=== PATIENT | male | born 1965 | race Caucasian/White ===

== ENCOUNTER 2018-10-27 14:17 | Inpatient (IN) | payer BC ==
[2018-10-27] MEDS ORDERED: ISOVUE-370 76%-LOCM 1 ML ONE (15:09)
[2018-10-27 15:37] LABS: Troponin I 0.025 ng/mL (< 0.028)
--- NOTE | 2018-10-27 16:38 | CT ---
Exam: CT angiogram of the chest HISTORY: Dyspnea COMPARISON: None TECHNIQUE: CT angiogram of the chest is performed in the axial plane. Three-dimensional reformatted i mages are submitted for interpretation FINDINGS: Mediastinum: There do appear to be enlarged mediastinal lymph nodes. For example there is an enlarged right. Tracheal lymph node measuring 1.8 x 1.5 cm. Enlarged left mediastinal lymph node measuring 1.0 x 2.0 cm. HEART: Normal heart size. No significant pericardial fluid. There are coronary artery calcifications. Aorta: Limited evaluation due to technique. No evidence of aneurysm. Upper solid abdominal viscera: No abnormality enhancement. Trachea and central bronchi: Patent Pleural spaces: Trace right and small left-sided pleural effusion. Lung parenchyma: Patchy groundglass opacities throughout the lung parenchyma. No dense consolidation with air bronchograms. Atelectatic changes in both lower lobes. No suspicious masses. 0.5 cm subpleural lymph node adjacent to the minor fissure. Pneumothorax: None Osseous structures: No lytic or blastic lesions Pulmonary arteries:Limited evaluation of the pulmonary arteries due to timing of bolus. There is adeq uate contrast opacification of pulmonary arterial system to the level of proximal lobar arteries. No filling defect to suggest thromboembolism. Evaluation of the remainder the lobar arteries, segment al and subsegmental arteries is limited. IMPRESSION: 1. Patchy groundglass opacities and bilateral pleural effusion. Correlate for volume overload 2. Limited evaluation of pulmonary arterial system. No evidence of a pulmonary artery embolism to th e level of the proximal main lobar arteries Transcribed Date/Time: 10/27/2018 4:48 PM
[2018-10-27 17:49] VITALS: BMI 40.7
--- NOTE | 2018-10-27 18:03 | HP ---
PRIMARY CARE PHYSICIAN: None. CHIEF COMPLAINT: Generalized weakness with upper abdominal pain. HISTORY OF PRESENT ILLNESS: The patient is a 53-year-old male, who presented to [facility] with above complaints. Over the past 1 or 2 weeks, the patient has not been feeling well. He felt generally weak and fatigued. He gets short of breath on mild exertion. He also had intermittent palpitations without any chest pain or syncope. He denies recent immobilization travel. In the emergency room, his workup was consistent with atrial fibrillation with rapid ventricular response with a heart rate of 188. He was started on oxygen due to hypoxia. He also received one dose of Lovenox along with aspirin in the emergency room. PAST MEDICAL HISTORY: Reviewed with the patient and none. PAST SURGICAL HISTORY: Reviewed with the patient and none. ALLERGIES: THE PATIENT IS ALLERGIC TO LOSARTAN THAT CAUSES SHORTNESS OF BREATH. CURRENT HOME MEDICATIONS: Reviewed with the patient and none. SOCIAL HISTORY: The patient currently abuses cannabis. He denies any alcohol or smoking. He is full code. FAMILY HISTORY: Negative for heart disease. REVIEW OF SYSTEMS: All other review of systems was reviewed and were found negative. PHYSICAL EXAMINATION: VITAL SIGNS: Temperature 97.5, respirations of 37, pulse rate of 119, blood pressure of 148/102, and O2 saturation 92% on 3 L nasal cannula. GENERAL: A 53-year-old male in mild respiratory distress. Able to complete short phrases. HEENT: Head; atraumatic, normocephalic. Sclerae are anicteric. Moist mucous membranes. No oral lesion. NECK: Supple. No JVD appreciated. No carotid bruit. LUNGS: Showed diminished air entry at bilateral bases with rales at bases. No rhonchi or wheezing. HEART: S1 and S2 present. Regular rate and rhythm. No heaves or pulsation. ABDOMEN: Soft, nontender, obese. Bowel sounds present. EXTREMITIES: 2+ edema in bilateral lower extremity. SKIN: Warm and dry. PERIPHERAL VASCULAR: Radial pulses palpable bilaterally. MUSCULOSKELETAL: No joint swelling or tenderness. SKIN: Warm and dry. LYMPH NODES: No palpable lymph nodes in the neck. LABORATORY FINDINGS: WBC 14.3 with hemoglobin 14.3, hematocrit 48.9, and platelet count of 292. INR 1.2 with PT 15.9. BNP 229. Troponin negative. TSH 1.1. Lactic acid 0.9. Sodium 141, potassium 5.1, BUN 18, and creatinine 0.87. Urine drug screen was positive for cannabinoid and methamphetamines. IMAGING DATA: CT angiogram of the chest by my review showed pulmonary vascular congestion with bilateral pleural effusion. EKG by my review showed atrial fibrillation with rapid ventricular response. Repeat EKG showed normal sinus rhythm. IMPRESSION: 1. Atrial fibrillation with rapid ventricular response, converted to sinus rhythm. 2. Acute hypoxic respiratory failure secondary to congestive heart failure exacerbation. Ejection fraction unknown. 3. Cannabis abuse. 4. Urine drug screen positive for methamphetamine. 5. Leukocytosis unlikely to be infectious. 6. Morbid Obesity. PLAN: The patient will be monitored in the telemetry unit. Cardizem drip will be continued at 5 mg/hour. We will continue 1 mg/kg of Lovenox. Cardiology consultation. IV diuretics. Consult Cardiology. Add fluid restriction. The patient will require 2 days for stabilization. Plan of care was discussed with the patient in detail, he stated understanding. Job ID: [id number] MTDD
[2018-10-27 19:21] LABS: Troponin I 0.026 ng/mL (< 0.028)
[2018-10-28] MEDS ORDERED: Acetaminophen 325 MG TAB PO PRN (06:50)
[2018-10-28] MEDS ORDERED: Ondansetron ODT 4 MG TAB PO PRN (06:50)
[2018-10-28] MEDS ORDERED: Calcium Carbonate 500 MG ChewTAB PO PRN (06:50)
[2018-10-28] MEDS ORDERED: Ondansetron PF 4 MG/2 ML Vial IVP PRN (06:50)
[2018-10-28] MEDS ORDERED: cloNIDine 0.1 MG TAB PO PRN (06:59)
[2018-10-28 07:44] LABS: #Eosinphils 0.3 thou/uL (0.0-0.7); #Lymphocytes 1.5 thou/uL (1.20-3.40); #Monocytes 1.2 thou/uL (0.11-0.59); #Neutrophils 10.8 thou/uL (1.40-6.50); %Basophils 0.3 % (0.0-1.0); %Eosinophils 1.8 % (0.0-10.0); %Monocytes 8.4 % (0.0-10.0); %Neutrophils 78.5 % (42.0-75.0); Hemoglobin 13.9 g/dL (14.0-18.0); Mean Corpuscular HGB CONC 30.9 g/dL (32.0-36.0); Mean Corpuscular Hemoglobin 30.5 pg (27.0-31.0); Mean Corpuscular Volume 98.5 fL (78.0-98.0); Mean Platelet Volume 6.9 fL (7.4-10.4); Platelet Count 251 thou/uL (130-400); RBC Distribution Width 14.3 % (11.5-14.5); Red Blood Cell (RBC) Count 4.57 mill/uL (4.70-6.10); White Blood Cell (WBC) Count 13.8 thou/uL (4.8-10.8)
[2018-10-28 08:08] LABS: Anion Gap 10 mmol/L (10-20); BUN (Urea Nitrogen) 20 mg/dL (8.4-25.7); Calc. Creatinine Clearance 176 mL/min (70-130); Calcium 9.3 mg/dL (7.8-10.44); Carbon Dioxide 35 mmol/L (22-29); Chloride 99 mmol/L (98-107); Estimated GFR-MDRD 83; Glucose 110 mg/dL (70-105); Magnesium 1.8 mg/dL (1.6-2.6); Sodium 138 mmol/L (136-145)
[2018-10-28] MEDS ORDERED: Furosemide 40 MG/4 ML VIAL SLOW IVP SCH (08:15)
[2018-10-28] MEDS: Enoxaparin Sodium 100 MG/ML SYRINGE SC SCH ×2 (09:10→20:38)
[2018-10-28] MEDS: Famotidine 20 MG TAB PO SCH ×2 (09:11→20:38)
[2018-10-28] MEDS: Senokot S 8.6-50 MG TAB PO SCH ×2 (09:11→20:38)
[2018-10-28 09:57] LABS: Hemoglobin 14.6 g/dL (14.0-18.0); Platelet Count 263 thou/uL (130-400)
[2018-10-28] MEDS ORDERED: Nitroglycerin 0.4 MG TAB (25 Tab Bottle) PO PRN (10:05)
[2018-10-28 10:14] LABS: Calc. Creatinine Clearance 204 mL/min (70-130); Estimated GFR-MDRD Greater than 90
--- NOTE | 2018-10-28 12:26 | PRG ---
DATE OF SERVICE: 10/28/2018 SUMMARY: A 53-year-old male admitted yesterday with atrial fibrillation with rapid ventricular response. SUBJECTIVE: The patient denies any new complaints at this time. He gets short of breath on [id number] exertion. He denies any fever or chills. He has some dry cough. Mild orthopnea reported. Continues to have leg swelling. CURRENT MEDICATIONS: Reviewed. He is currently on IV Lasix along with oral Cardizem and anticoagulation. OBJECTIVE: VITAL SIGNS: Temperature 98.1, pulse rate of 81, respirations of 15, blood pressure 157/89, O2 saturation 93% on 2 L nasal cannula. GENERAL: A 53-year-old man, in no apparent distress while at rest. HEENT: Head; atraumatic and normocephalic. Sclerae anicteric. Moist mucous membranes. No oral lesion. NECK: Supple. No JVD. No carotid bruit. LUNGS: Show diminished air entry at bilateral bases. No wheezing, rales, or rhonchi. No accessory muscle use. HEART: S1 and S2 present. Regular rate and rhythm. No significant murmurs appreciated. ABDOMEN: Soft. Bowel sounds present. Obese. No rebound or guarding. EXTREMITIES: 2 to 3+ edema. No calf tenderness. NEUROLOGIC: Grossly nonfocal. LABORATORY FINDINGS: Platelet count 263 with hemoglobin 14.6. Potassium 6.0, BUN 20, creatinine 0.95. Telemetry monitoring by my review showed sinus rhythm. CT angiogram of the chest by my review showed bilateral pleural effusion with patchy ground-glass opacity secondary to volume overload. IMPRESSION: 1. Atrial fibrillation with rapid ventricular response. The patient converted to sinus rhythm. He is currently on oral Cardizem as well as anticoagulation. 2. Acute hypoxic respiratory failure secondary to congestive heart failure exacerbation. 3. Cannabis abuse. 4. Morbid obesity with a BMI of 40.9. 5. Hyperkalemia of unclear etiology. 6. Chronic kidney disease, stage 2. 7. Urine drug screen positive for methamphetamine. PLAN: We will continue IV diuretics along with oral Cardizem. Await Cardiology input. Echocardiogram will be obtained. We will give him Kayexalate along with lactulose for hyperkalemia. We will recheck potassium later today. Continue fluid restriction at 1500 a day, daily weights, congestive heart failure management. The patient will require 2 to 3 more days for stabilization given his persistent hypoxemia. Job ID: [id number]
--- NOTE | 2018-10-28 13:15 | PDOC.EVN ---
Event Note - Event Note Event Note: RN called - Patient back in Afib with RVR. Will start Cardizem drip @ 5 mg/hr.
[2018-10-28] MEDS: Furosemide 40 MG/4 ML VIAL SLOW IVP SCH (14:33)
[2018-10-28] MEDS: Diltiazem 125 MG in Sodium Chloride 0.9% 100 ML IVPB SCH (14:33)
[2018-10-28 14:45] LABS: Potassium 3.9 mmol/L (3.5-5.1)
--- NOTE | 2018-10-28 18:37 | CON ---
DATE OF CONSULTATION: 10/28/2018 REASON FOR CONSULTATION: Atrial fibrillation with RVR. HISTORY OF PRESENT ILLNESS: Mr. Gu is a pleasant 53-year-old white gentleman, who comes to the hospital for generalized weakness and upper abdominal pain. He was evaluated in the ER and found to be in atrial fibrillation and RVR. He was started on the diltiazem drip and Cardiology is being consulted for this. On my evaluation, Mr. Gu is back in normal rhythm. He is having paroxysms of atrial fibrillation, they are self-limited for about 30 minutes at a time. During his paroxysms, he goes as high as 160s. PAST MEDICAL HISTORY: None. SURGICAL HISTORY: None. OUTPATIENT MEDICATIONS: None. ALLERGIES: HE SAYS LOSARTAN CAUSES SHORTNESS OF BREATH, WHICH HE TELLS ME THAT HE HAS BEEN ON BLOOD PRESSURE MEDICATIONS IN THE PAST. HE MAY HAVE A DIAGNOSIS OF HIGH BLOOD PRESSURE. SOCIAL HISTORY: Uses marijuana daily. Uses tobacco daily. He tells me that the last time he used methamphetamines was about 2 years ago. However, his urine drug screen was positive for methamphetamines. No alcohol. FAMILY HISTORY: No early coronary artery disease. REVIEW OF SYSTEMS: A 12-point review of systems was done and was all negative unless stated in history of present illness. PHYSICAL EXAMINATION: VITAL SIGNS: Temperature 98.2, pulse 84, respiratory rate 15, saturations 92% on 3.5 L, and blood pressure 133/73. GENERAL: Awake, alert, and oriented x3, in no distress. HEENT: Normocephalic and atraumatic. NECK: Supple. LUNGS: Clear. CARDIOVASCULAR: S1 and S2. No S3 or S4. No murmurs. ABDOMEN: Soft. Positive bowel sounds. EXTREMITIES: Trace edema. SKIN: Warm and dry. LABORATORY DATA: Laboratory work was reviewed. CBC with a white count of 13, hemoglobin of 13.9, hematocrit 45, platelet count of 251. Chemistries showed a potassium of 6.0 on admission, down to 3.9 after Kayexalate was given. GFR was greater than 90. Glucose of 110. Troponin was negative x2. BNP is 229. CT of the chest showed ground-glass opacities bilaterally with bilateral pleural effusions consistent with volume overload. No pulmonary embolisms. ASSESSMENT: 1. Atrial fibrillation with RVR. 2. Urine drug screen positive for methamphetamines and cannabis. 3. Possible systolic versus diastolic heart failure. PLAN: 1. Await for echocardiogram. 2. We will recommend that he abstain from any stimulants as this is most likely the cause of his atrial fibrillation. 3. If he shows in the future that he is abstinent and he continues to have paroxysms of atrial fibrillation, then he will be a candidate for an antiarrhythmic. However, at this point, with his methamphetamine use, this would be prohibitive. 4. I would recommend against a full anticoagulation, given his methamphetamine use at the time. His CHADS-VASc score would only be 1 for hypertension, so he would only be a candidate for low-dose aspirin for stroke prophylaxis. Thank you for letting me to participate in the care of your patient. Further recommendations per results of echocardiogram. Job ID: [id number]
[2018-10-29 05:03] LABS: BUN (Urea Nitrogen) 31 mg/dL (8.4-25.7); Calc. Creatinine Clearance 233 mL/min (70-130); Calcium 8.6 mg/dL (7.8-10.44); Estimated GFR-MDRD Greater than 90; Glucose 119 mg/dL (70-105); Magnesium 1.7 mg/dL (1.6-2.6)
[2018-10-29 05:13] LABS: Anion Gap 14 mmol/L (10-20); Carbon Dioxide 38 mmol/L (22-29); Chloride 93 mmol/L (98-107); Potassium 4.2 mmol/L (3.5-5.1); Sodium 141 mmol/L (136-145)
[2018-10-29] MEDS: Furosemide 40 MG/4 ML VIAL SLOW IVP SCH (05:29)
[2018-10-29] MEDS: Enoxaparin Sodium 100 MG/ML SYRINGE SC SCH ×2 (05:29→18:10)
[2018-10-29] MEDS ORDERED: Magnesium 2 GM/50 ML 2 GM in Premix Bag 1 BAG IVPB SCH (07:15)
[2018-10-29] MEDS ORDERED: Magnesium Sulfate 2 GM in Sodium Chloride 0.9% 100 ML IVPB SCH (07:15)
[2018-10-29] MEDS: Famotidine 20 MG TAB PO SCH ×2 (08:59→20:14)
[2018-10-29] MEDS: Senokot S 8.6-50 MG TAB PO SCH ×2 (08:59→20:14)
[2018-10-29] MEDS ORDERED: Aspirin 81 mg Enteric Coated Tablet PO SCH (09:00)
[2018-10-29] MEDS: Diltiazem 125 MG in Sodium Chloride 0.9% 100 ML IVPB SCH (10:24)
[2018-10-29] MEDS ORDERED: Diltiazem 125 MG in Sodium Chloride 0.9% 100 ML IVPB SCH (18:45)
--- NOTE | 2018-10-29 18:47 | PDOC.CTH ---
Cardiology Progress Note - Subjective No new issues. - Objective Vital Signs Temp Pulse Resp BP Pulse Ox 10/29/18 16:27 98.1 F 118 H 14 143/64 H 93 L 10/29/18 12:03 97.9 F 113 H 15 152/74 H 93 L 10/29/18 08:00 94 L 10/29/18 07:21 97.6 F 113 H 15 136/74 94 L Weight 293 lb 12.8 oz 10/28/18 10/29/18 10/30/18 06:59 06:59 06:59 Intake Total 720 1520 Output Total 450 6375 Balance 270 -6505 - Physical Examination General/Neuro: alert & oriented x3, NAD Neck: no JVD present Lungs: CTA, unlabored respirations Heart: other: (irreg irreg) Abdomen: soft Extremities: + edema B (trace) - Telemetry Telemetry Rhythm: NSR --> Afib - Labs Result Diagrams: 10/28/18 09:49 10/29/18 04:00 Troponin/CKMB Troponin I 0.026 ng/mL (< 0.028) 10/27/18 18:44 - Assessment/Plan 1. Paroxysmal afib 2. Substance abuse. 3. HTN PLAN: - Will increase diltiazem for better rate control. - Will add flecainide for now but will only provide one month of prescription and will only be refilled if he is compliant and shows up to follow up appointments. - Aspirin alone for stroke prophylaxis as CHADS VASc score of 1.
--- NOTE | 2018-10-29 19:19 | PDOC.PN ---
- Subjective Encounter Start Date: 10/29/18 Encounter Start Time: 19:19 Patient seen and examined for Afib with RVR/Resp failure. SOB improving. On Cardizem drip. No CP. No new complaints. No overnight events - Objective Resuscitation Status - Order Detail: 10/28/18 06:50 Resuscitation Status Routine Resuscitation Status: FULL: Full Resuscitation MAR Reviewed: Yes Vital Signs & Weight: Vital Signs (12 hours) Temp Pulse Resp BP Pulse Ox 10/29/18 16:27 98.1 F 118 H 14 143/64 H 93 L 10/29/18 12:03 97.9 F 113 H 15 152/74 H 93 L 10/29/18 08:00 94 L 10/29/18 07:21 97.6 F 113 H 15 136/74 94 L Weight Weight 293 lb 12.8 oz I&O: 10/28/18 10/29/18 10/30/18 06:59 06:59 06:59 Intake Total 720 1520 Output Total 450 6375 Balance 270 -8505 Result Diagrams: 10/28/18 09:49 10/30/18 04:25 EKG Reviewed by me: Yes (Tele Afib) Phys Exam - Physical Examination Constitutional: NAD Neck: no JVD Respiratory: no wheezing, no rhonchi few rales at bases, No accessory muscle use Cardiovascular: RRR, no rub, irregular no heaves/pulsations Gastrointestinal: soft, non-tender, no distention, positive bowel sounds Musculoskeletal: pulses present, edema present Neurological: non-focal, normal sensation, moves all 4 limbs Psychiatric: normal affect, A&O x 3 Skin: no rash Dx/Plan - Plan DVT proph w/lovenox, DVT proph w/SCDs IMPRESSION: 1. Atrial fibrillation with rapid ventricular response - on Cardizem drip 2. Acute hypoxic respiratory failure secondary to acute diastolic HF 3. Cannabis abuse. 4. Methamphetamine abuse 5. Obesity BMI 37.6 6. HTN PLAN: Cont Cardizem drip DC 1 mg/kg Lovenox per Cardiology Cont ASA for stroke prophylaxis On Flecainide Counselled on lifestyle modification AM labs Review of Systems - Review of Systems Respiratory: negative: Cough, Dry, Shortness of Breath, Hemoptysis, SOB with Excertion, Pleuritic Pain, Sputum, Wheezing Cardiovascular: negative: chest pain, palpitations, orthopnea, paroxysmal nocturnal dyspnea, edema, light headedness, other Gastrointestinal: negative: Nausea, Vomiting, Abdominal Pain, Diarrhea, Constipation, Melena, Hematochezia, Other - Medications/Allergies Allergies/Adverse Reactions: Allergies Allergy/AdvReac Type Severity Reaction Status Date / Time No Known Allergies Allergy Unverified 10/27/18 17:25 Medications: Current Medications Acetaminophen (Tylenol) 650 mg PO Q4H PRN PRN Reason: Headache/Fever/Mild Pain (1-3) Aspirin (Ecotrin) 81 mg PO DAILY [facility] Last Admin: 10/29/18 08:59 Dose: 81 mg Calcium Carbonate (Tums) 1,000 mg PO Q4H PRN PRN Reason: Heartburn or Indigestion Clonidine (Catapres) 0.1 mg PO Q4H PRN PRN Reason: SBP Greater Than 180 Enoxaparin Sodium (Lovenox) 100 mg SC 0700,1900 [facility] Last Admin: 10/29/18 18:10 Dose: 100 mg Famotidine (Pepcid) 20 mg PO BID [facility] Last Admin: 10/29/18 08:59 Dose: 20 mg Flecainide Acetate (Tambocor) 50 mg PO Q12HR [facility] Furosemide (Lasix) 40 mg SLOW IVP DAILY [facility] Diltiazem HCl 125 mg/ Sodium (Chloride) 125 mls @ 10 mls/hr IVPB INF [facility]; Protocol Nitroglycerin (Nitrostat) 0.4 mg PO Q5MIN PRN PRN Reason: Chest Pain Ondansetron HCl (Zofran Odt) 4 mg PO Q6H PRN PRN Reason: Nausea/Vomiting Ondansetron HCl (Zofran) 4 mg IVP Q6H PRN PRN Reason: Nausea/Vomiting Senna/Docusate Sodium (Senokot S) 1 tab PO BID [facility] Last Admin: 10/29/18 08:59 Dose: Not Given Sodium Chloride (Flush - Normal Saline) 10 ml IVF PRN PRN PRN Reason: Saline Flush
[2018-10-29] MEDS: Flecainide 50 MG TAB PO SCH (20:14)
[2018-10-30 05:34] LABS: BUN (Urea Nitrogen) 35 mg/dL (8.4-25.7); Calc. Creatinine Clearance 211 mL/min (70-130); Calcium 8.7 mg/dL (7.8-10.44); Estimated GFR-MDRD Greater than 90; Glucose 120 mg/dL (70-105); Magnesium 1.7 mg/dL (1.6-2.6)
[2018-10-30 05:43] LABS: Anion Gap 13 mmol/L (10-20); Carbon Dioxide 39 mmol/L (22-29); Chloride 95 mmol/L (98-107); Potassium 4.2 mmol/L (3.5-5.1); Sodium 143 mmol/L (136-145)
[2018-10-30] MEDS ORDERED: Magnesium Sulfate 2 GM in Sodium Chloride 0.9% 100 ML IVPB SCH (07:00)
[2018-10-30] MEDS: Enoxaparin Sodium 100 MG/ML SYRINGE SC SCH (07:05)
[2018-10-30] MEDS ORDERED: Magnesium 2 GM/50 ML 2 GM in Premix Bag 1 BAG IVPB SCH (07:30)
[2018-10-30 08:34] LABS: #Basophils 0.1 thou/uL (0.0-0.2); #Eosinphils 0.3 thou/uL (0.0-0.7); #Lymphocytes 1.6 thou/uL (1.20-3.40); #Neutrophils 9.1 thou/uL (1.40-6.50); %Basophils 0.5 % (0.0-1.0); %Eosinophils 2.9 % (0.0-10.0); %Lymphocytes 13.5 % (21.0-51.0); %Neutrophils 75.1 % (42.0-75.0); Hemoglobin 10.9 g/dL (14.0-18.0); Hypochromia SLIGHT = 6-15 cells (100X) (0-5/hpf); MDiff Complete? YES; Macrocytosis SLIGHT = 6-15 cells (100X) (0-5/hpf); Mean Corpuscular HGB CONC 29.9 g/dL (32.0-36.0); Mean Corpuscular Hemoglobin 29.7 pg (27.0-31.0); Mean Corpuscular Volume 99.1 fL (78.0-98.0); Mean Platelet Volume 6.8 fL (7.4-10.4); Platelet Count 243 thou/uL (130-400); Platelet Morphology Comment Appears Adequate; Polychromasia SLIGHT = 2-3 cells (100X) (0-2/hpf); RBC Distribution Width 14.2 % (11.5-14.5); Red Blood Cell (RBC) Count 3.66 mill/uL (4.70-6.10); White Blood Cell (WBC) Count 12.1 thou/uL (4.8-10.8)
[2018-10-30] MEDS ORDERED: Furosemide 40 MG/4 ML VIAL SLOW IVP SCH ×2 (09:00→17:30)
[2018-10-30] MEDS: Aspirin 325 mg Enteric Coated Tablet PO SCH (10:22)
[2018-10-30] MEDS: Famotidine 20 MG TAB PO SCH ×2 (10:22→21:02)
[2018-10-30] MEDS: Flecainide 50 MG TAB PO SCH ×2 (10:22→21:02)
[2018-10-30] MEDS: Senokot S 8.6-50 MG TAB PO SCH ×2 (10:22→21:03)
--- NOTE | 2018-10-30 16:50 | PDOC.PN ---
- Subjective Encounter Start Date: 10/30/18 Encounter Start Time: 14:30 Patient seen and examined for Afib with RVR/CHF. No new complaints. No overnight events - Objective Resuscitation Status - Order Detail: 10/28/18 06:50 Resuscitation Status Routine Resuscitation Status: FULL: Full Resuscitation MAR Reviewed: Yes Vital Signs & Weight: Vital Signs (12 hours) Temp Pulse Resp BP Pulse Ox 10/30/18 15:34 97.7 F 91 18 157/86 H 93 L 10/30/18 12:49 98.3 F 88 16 137/68 94 L 10/30/18 07:49 98.0 F 71 22 H 137/65 96 Weight Weight 277 lb 8 oz I&O: 10/29/18 10/30/18 10/31/18 06:59 06:59 06:59 Intake Total 1520 1200 Output Total 6375 1750 Balance -6139 -550 Result Diagrams: 10/30/18 06:29 10/30/18 04:25 EKG Reviewed by me: Yes (Tele SR) Phys Exam - Physical Examination Constitutional: NAD Respiratory: no wheezing, no rhonchi dec AE at bases, No accessory muscle use Cardiovascular: RRR, no rub no heaves/pulsations Gastrointestinal: soft, non-tender, no distention, positive bowel sounds Musculoskeletal: pulses present, edema present Neurological: non-focal, normal sensation, moves all 4 limbs Psychiatric: normal affect, A&O x 3 Dx/Plan - Plan DVT proph w/lovenox, DVT proph w/SCDs IMPRESSION: 1. Atrial fibrillation with rapid ventricular response - on Cardizem drip, on ASA 2. Acute hypoxic respiratory failure secondary to acute diastolic HF - on 4 lit NC today 3. Cannabis abuse. 4. UDS positive for Methamphetamine abuse 5. Obesity BMI 37.6 6. HTN 7. ?PEARL PLAN: Cont Cardizem drip On Flecainide Add PO Cardizem Cont IV Lasix AM labs Wean O2 Cont fluid restriction Counselled on lifestyle modification AM labs Sleep study as outpt Review of Systems - Review of Systems Respiratory: SOB with Excertion. negative: Cough, Dry, Shortness of Breath, Hemoptysis, Pleuritic Pain, Sputum, Wheezing Cardiovascular: edema. negative: chest pain, palpitations, orthopnea, paroxysmal nocturnal dyspnea, light headedness, other Gastrointestinal: negative: Nausea, Vomiting, Abdominal Pain, Diarrhea, Constipation, Melena, Hematochezia, Other - Medications/Allergies Allergies/Adverse Reactions: Allergies Allergy/AdvReac Type Severity Reaction Status Date / Time No Known Allergies Allergy Unverified 10/27/18 17:25 Medications: Current Medications Acetaminophen (Tylenol) 650 mg PO Q4H PRN PRN Reason: Headache/Fever/Mild Pain (1-3) Aspirin (Ecotrin) 325 mg PO DAILY [facility] Last Admin: 10/30/18 10:22 Dose: 325 mg Calcium Carbonate (Tums) 1,000 mg PO Q4H PRN PRN Reason: Heartburn or Indigestion Clonidine (Catapres) 0.1 mg PO Q4H PRN PRN Reason: SBP Greater Than 180 Diltiazem HCl (Cardizem) 60 mg PO BID [facility] Enoxaparin Sodium (Lovenox) 40 mg SC 2100 [facility] Famotidine (Pepcid) 20 mg PO BID [facility] Last Admin: 10/30/18 10:22 Dose: 20 mg Flecainide Acetate (Tambocor) 50 mg PO Q12HR [facility] Last Admin: 10/30/18 10:22 Dose: 50 mg Furosemide (Lasix) 40 mg SLOW IVP DAILY [facility] Last Admin: 10/30/18 10:23 Dose: 40 mg Nitroglycerin (Nitrostat) 0.4 mg PO Q5MIN PRN PRN Reason: Chest Pain Ondansetron HCl (Zofran Odt) 4 mg PO Q6H PRN PRN Reason: Nausea/Vomiting Ondansetron HCl (Zofran) 4 mg IVP Q6H PRN PRN Reason: Nausea/Vomiting Senna/Docusate Sodium (Senokot S) 1 tab PO BID [facility] Last Admin: 10/30/18 10:22 Dose: 1 tab Sodium Chloride (Flush - Normal Saline) 10 ml IVF PRN PRN PRN Reason: Saline Flush
--- NOTE | 2018-10-30 17:04 | PDOC.CTH ---
Cardiology Progress Note - Subjective Still needing Oxygen supplementation. - Objective Vital Signs Temp Pulse Resp BP Pulse Ox 10/30/18 15:34 97.7 F 91 18 157/86 H 93 L 10/30/18 12:49 98.3 F 88 16 137/68 94 L 10/30/18 07:49 98.0 F 71 22 H 137/65 96 Weight 277 lb 8 oz 10/29/18 10/30/18 10/31/18 06:59 06:59 06:59 Intake Total 1520 1200 Output Total 6375 1750 Balance -4855 -550 - Physical Examination General/Neuro: alert & oriented x3, NAD Neck: no JVD present Lungs: CTA, unlabored respirations Heart: RRR Abdomen: NT/ND Extremities: + edema B (1+) - Telemetry Telemetry Rhythm: NSR. - Labs Result Diagrams: 10/30/18 06:29 10/30/18 04:25 Troponin/CKMB Troponin I 0.026 ng/mL (< 0.028) 10/27/18 18:44 - Assessment/Plan 1. Paroxysmal afib 2. Substance abuse. 3. HTN 4. Acute diastolic CHF. PLAN: - PO diltiazem. - Continue current flecainide dose. - Aspirin alone for stroke prophylaxis as CHADS VASc score of 1. - Will do MUGA scan to evaluate LV function more accurately. - IV lasix.
[2018-10-30] MEDS: Diltiazem HCl SR 60 mg Capsule PO SCH (21:02)
[2018-10-30] MEDS: Enoxaparin Sodium 40 MG/0.4 ML SYRINGE SC SCH (21:03)
[2018-10-31] MEDS: Furosemide 40 MG/4 ML VIAL SLOW IVP SCH (06:07)
[2018-10-31 06:50] LABS: BUN (Urea Nitrogen) 34 mg/dL (8.4-25.7); Calc. Creatinine Clearance 213 mL/min (70-130); Calcium 8.4 mg/dL (7.8-10.44); Estimated GFR-MDRD Greater than 90; Glucose 113 mg/dL (70-105); Magnesium 1.8 mg/dL (1.6-2.6)
[2018-10-31 06:59] LABS: Anion Gap 13 mmol/L (10-20); Chloride 93 mmol/L (98-107); Potassium 4.1 mmol/L (3.5-5.1); Sodium 144 mmol/L (136-145)
[2018-10-31 07:05] LABS: Carbon Dioxide 42 mmol/L (22-29)
[2018-10-31] MEDS: Senokot S 8.6-50 MG TAB PO SCH ×2 (09:07→21:27)
[2018-10-31] MEDS: Flecainide 50 MG TAB PO SCH ×2 (09:07→21:28)
[2018-10-31] MEDS: Famotidine 20 MG TAB PO SCH ×2 (09:07→21:28)
[2018-10-31] MEDS: Diltiazem HCl SR 60 mg Capsule PO SCH (09:07)
[2018-10-31] MEDS: Aspirin 325 mg Enteric Coated Tablet PO SCH (09:07)
--- NOTE | 2018-10-31 13:07 | PDOC.PN ---
- Subjective Encounter Start Date: 10/31/18 (f/u dyspnea) Encounter Start Time: 13:04 Subjective: Pt c/o occ problems with breathing. Denies any chest pain. Feels -: anxious at times - reports he manages this at home with working more -: tobacco - 3-4 cigs/day - Objective Resuscitation Status - Order Detail: 10/28/18 06:50 Resuscitation Status Routine Resuscitation Status: FULL: Full Resuscitation Vital Signs & Weight: Vital Signs (12 hours) Temp Pulse Resp BP Pulse Ox 10/31/18 09:00 98.2 F 125 H 20 119/82 95 10/31/18 04:00 97.7 F 123 H 20 138/82 94 L Weight Weight 272 lb 11.2 oz I&O: 10/30/18 10/31/18 11/01/18 06:59 06:59 06:59 Intake Total 1200 1960 Output Total 1750 3650 Balance -550 -1690 Result Diagrams: 10/30/18 06:29 10/31/18 06:00 EKG Reviewed by me: Yes (a fib with rates 100-120's) Phys Exam - Physical Examination Constitutional: NAD Respiratory: no wheezing, no rales, no rhonchi shallow breathing Cardiovascular: no significant murmur, irregular Gastrointestinal: soft, non-tender, positive bowel sounds 1+ pitting edema bilateral Neurological: non-focal Psychiatric: normal affect Dx/Plan (1) Atrial fibrillation Code(s): I48.91 - UNSPECIFIED ATRIAL FIBRILLATION Status: Acute (2) Diastolic heart failure Code(s): I50.30 - UNSPECIFIED DIASTOLIC (CONGESTIVE) HEART FAILURE Status: Acute Qualifiers: Heart failure chronicity: acute Qualified Code(s): I50.31 - Acute diastolic (congestive) heart failure (3) Tobacco abuse Code(s): Z72.0 - TOBACCO USE Status: Chronic (4) Cannabis abuse Code(s): F12.10 - CANNABIS ABUSE, UNCOMPLICATED Status: Chronic (5) Obesity (BMI 35.0-39.9 without comorbidity) Code(s): E66.9 - OBESITY, UNSPECIFIED Status: Chronic (6) Hypertension Code(s): I10 - ESSENTIAL (PRIMARY) HYPERTENSION Status: Chronic Qualifiers: Hypertension type: essential hypertension Qualified Code(s): I10 - Essential (primary) hypertension (7) Anemia Code(s): D64.9 - ANEMIA, UNSPECIFIED Status: Acute Qualifiers: Anemia type: unspecified type Qualified Code(s): D64.9 - Anemia, unspecified - Plan * A fib with RVR despite flecainide and diltiazem - Cardiology to address. Aspirin only recommended for stroke risk reduction * Diastolic HF - bicarb is elevated at 42 - hold placed on lasix * Tobacco abuse - pt desires nicotine replacement * Breathing problems - pt reports being told he had COPD in the past - is not currently on meds for this. Will start scheduled neb tx to see if this improves sx. Hold on steroids at this time * anemia - uncertain etiology - given the drop, will check iron/vit studies and repeat CBC in AM * * dvt prophy - lovenox * gi prophy - not indicated * code status full * * reviewed plan of care with patient, no questions or further needs at end of eval * pt remains at high risk in current condition
--- NOTE | 2018-10-31 13:51 | PDOC.CTH ---
Cardiology Progress Note - Objective Vital Signs Temp Pulse Resp BP Pulse Ox 10/31/18 12:00 98.2 F 114 H 20 136/89 93 L 10/31/18 09:00 98.2 F 125 H 20 119/82 95 10/31/18 04:00 97.7 F 123 H 20 138/82 94 L Weight 272 lb 11.2 oz 10/30/18 10/31/18 11/01/18 06:59 06:59 06:59 Intake Total 1200 1960 Output Total 1750 3650 Balance -550 -1690 - Physical Examination General/Neuro: alert & oriented x3 Neck: no JVD present Lungs: other: (diffuse wheezing.) Heart: RRR Abdomen: soft - Telemetry Telemetry Rhythm: NSR. Earlier was in afib. - Labs Result Diagrams: 10/30/18 06:29 10/31/18 06:00 Troponin/CKMB Troponin I 0.026 ng/mL (< 0.028) 10/27/18 18:44 - Assessment/Plan 1. Paroxysmal afib with RVR - converted back to afib with HR 110-130s around 1330. On Flecanide 50mg BID since 10/29/2018 and Diltiazem which will be changed to Diltiazem IV 5mg/h and will titrate to keep HR <100; Not on BBlocker due to possible COPD and worsening SOB now; Aspirin 325mg qd alone for stroke prophylaxis as CHADS VASc score of 1. 2. HTN - stable 3. Acute on Chronic diastolic HF - Not BLE edema or ABD bloating; Lasix IV was held today due to elevated Bicarb level; cont. SOB. Albuterol was ordered by PCP 4. Tobacco abuse - 5. Cannabis abuse - 6. Obesity - MAR reviewed * -Flecainide will be provided only one month of prescription and will only be refilled if he is compliant and shows up to follow up appointments. Pt. seen and eval. by me. I agree with the A/P by the [employer] TE[employer]. Some degree of respiratory alkalosis. May need short course of diamox. Will recheck tomorrow.This pt. may benefit from a pulmonary consult. At least should have PFT 's. Likely has sleep apnea. Review of Systems - Review of Systems Constitutional: reports: no symptoms reported EENTM: reports: no symptoms reported Respiratory: reports: shortness of breath, SOB at rest Cardiac (ROS): reports: no symptoms reported ABD/GI: reports: no symptoms reported : reports: no symptoms reported Musculoskeletal: reports: no symptoms reported
[2018-10-31] MEDS ORDERED: Diltiazem 125 MG in Sodium Chloride 0.9% 100 ML IVPB SCH (14:15)
[2018-10-31] MEDS: Nicotine 7 MG PATCH TD SCH (15:16)
[2018-10-31] MEDS ORDERED: Diltiazem HCl SR 90 mg Capsule PO SCH (21:00)
[2018-10-31] MEDS: Enoxaparin Sodium 40 MG/0.4 ML SYRINGE SC SCH (21:27)
[2018-11-01 04:54] LABS: BUN (Urea Nitrogen) 27 mg/dL (8.4-25.7); Calc. Creatinine Clearance 210 mL/min (70-130); Calcium 8.4 mg/dL (7.8-10.44); Estimated GFR-MDRD Greater than 90; Glucose 105 mg/dL (70-105); Iron 15 ug/dL (65-175)
[2018-11-01 05:05] LABS: Anion Gap 15 mmol/L (10-20); Chloride 92 mmol/L (98-107); Potassium 3.6 mmol/L (3.5-5.1); Sodium 144 mmol/L (136-145)
[2018-11-01 05:10] LABS: Carbon Dioxide 41 mmol/L (22-29)
[2018-11-01 06:51] LABS: #Basophils 0.1 thou/uL (0.0-0.2); #Eosinphils 0.3 thou/uL (0.0-0.7); #Lymphocytes 2.5 thou/uL (1.20-3.40); #Monocytes 1.5 thou/uL (0.11-0.59); #Neutrophils 12.9 thou/uL (1.40-6.50); %Basophils 0.5 % (0.0-1.0); %Eosinophils 1.9 % (0.0-10.0); %Lymphocytes 14.6 % (21.0-51.0); %Monocytes 8.4 % (0.0-10.0); %Neutrophils 74.6 % (42.0-75.0); Hemoglobin 7.6 g/dL (14.0-18.0); Mean Corpuscular HGB CONC 31.3 g/dL (32.0-36.0); Mean Corpuscular Hemoglobin 30.2 pg (27.0-31.0); Mean Corpuscular Volume 96.4 fL (78.0-98.0); Mean Platelet Volume 7.2 fL (7.4-10.4); Platelet Count 235 thou/uL (130-400); RBC Distribution Width 14.5 % (11.5-14.5); Red Blood Cell (RBC) Count 2.51 mill/uL (4.70-6.10); White Blood Cell (WBC) Count 17.3 thou/uL (4.8-10.8)
[2018-11-01] MEDS: Famotidine 20 MG TAB PO SCH (08:28)
[2018-11-01] MEDS: Senokot S 8.6-50 MG TAB PO SCH ×2 (08:28→20:35)
[2018-11-01] MEDS: Flecainide 50 MG TAB PO SCH ×2 (08:28→20:35)
[2018-11-01] MEDS: Aspirin 325 mg Enteric Coated Tablet PO SCH (08:28)
--- NOTE | 2018-11-01 12:29 | PDOC.PN ---
- Subjective Encounter Start Date: 11/01/18 (f/u dyspnea) Encounter Start Time: 12:27 Subjective: Pt reports he is feeling better - breathing is more comfortable -: denies any n/v/abd pain. Does report a dark stool overnight. -: denies any blood in urine, reports hx of blood in stool - no eval for this - Objective Resuscitation Status - Order Detail: 10/28/18 06:50 Resuscitation Status Routine Resuscitation Status: FULL: Full Resuscitation Vital Signs & Weight: Vital Signs (12 hours) Temp Pulse Pulse Pulse Resp BP BP 11/01/18 11:54 98.8 F 94 18 11/01/18 11:01 89 93 149/64 H 165/70 H 11/01/18 08:03 92 16 11/01/18 07:15 98.5 F 97 18 11/01/18 07:10 11/01/18 03:25 98.3 F 77 20 BP Pulse Ox Pulse Ox Pulse Ox 11/01/18 11:54 129/69 11/01/18 11:01 95 96 11/01/18 08:03 92 L 11/01/18 07:15 105/97 H 94 L 11/01/18 07:10 94 L 11/01/18 03:25 99/53 L 96 Weight Weight 276 lb 6 oz I&O: 10/31/18 11/01/18 11/02/18 06:59 06:59 06:59 Intake Total 1960 1755 Output Total 3650 2200 Balance -1690 -445 Result Diagrams: 11/01/18 12:21 11/01/18 03:59 EKG Reviewed by me: Yes (tele - sinus since 14:30 yesterday with rate 70-100's) Phys Exam - Physical Examination Constitutional: NAD Respiratory: no wheezing, no rales, no rhonchi fair air movement Cardiovascular: RRR, no significant murmur Gastrointestinal: soft, no distention, positive bowel sounds mild ttp along the right abd without palpable abnormality Musculoskeletal: no edema Neurological: non-focal Psychiatric: normal affect Dx/Plan (1) GI bleed Code(s): K92.2 - GASTROINTESTINAL HEMORRHAGE, UNSPECIFIED Status: Acute (2) Atrial fibrillation Code(s): I48.91 - UNSPECIFIED ATRIAL FIBRILLATION Status: Acute (3) Diastolic heart failure Code(s): I50.30 - UNSPECIFIED DIASTOLIC (CONGESTIVE) HEART FAILURE Status: Acute Qualifiers: Heart failure chronicity: acute Qualified Code(s): I50.31 - Acute diastolic (congestive) heart failure (4) Tobacco abuse Code(s): Z72.0 - TOBACCO USE Status: Chronic (5) Cannabis abuse Code(s): F12.10 - CANNABIS ABUSE, UNCOMPLICATED Status: Chronic (6) Obesity (BMI 35.0-39.9 without comorbidity) Code(s): E66.9 - OBESITY, UNSPECIFIED Status: Chronic (7) Hypertension Code(s): I10 - ESSENTIAL (PRIMARY) HYPERTENSION Status: Chronic Qualifiers: Hypertension type: essential hypertension Qualified Code(s): I10 - Essential (primary) hypertension (8) Anemia Code(s): D64.9 - ANEMIA, UNSPECIFIED Status: Acute Qualifiers: Anemia type: unspecified type Qualified Code(s): D64.9 - Anemia, unspecified - Plan * Presentation concerning for new GI bleed - given significant drop over 2 days * d/c aspirin and lovenox * start IV protonic BID * consult Dr. Calvillo - contacted * will have patient on liquid diet * type and screen, repeat cbc and schedule q6h cbc * verbal consent obtained for blood - pt without questions after reviewing risks/benefits * * Pt was due to have a MUGA scan today - will hold this as I do not want him to leave a monitored setting. * * Leukocytosis - uncertain etiology, pt is afebrile without evidence of focal disease. Given the dyspnea yesterday - will order a chest xray. * * A fib with RVR - now back in sinus rhythm with dilt gtt, and on flecainide * Diastolic HF - bicarb is elevated at 42 - hold placed on lasix * Tobacco abuse - continue nicotine patch * Dyspnea - responding well to nebs, will continue. will need Pulm consult as outpatient and lft's to eval for apnea and/or COPD * * dvt prophy - SCD's only * gi prophy - not indicated * code status full * * reviewed plan of care with patient, no questions or further needs at end of eval * pt remains at high risk in current condition.
[2018-11-01] MEDS ORDERED: Pantoprazole 40 MG VIAL IVP SCH (12:30)
[2018-11-01 12:37] LABS: #Basophils 0.1 thou/uL (0.0-0.2); #Eosinphils 0.2 thou/uL (0.0-0.7); #Lymphocytes 2.8 thou/uL (1.20-3.40); #Monocytes 1.5 thou/uL (0.11-0.59); #Neutrophils 13.2 thou/uL (1.40-6.50); %Basophils 0.5 % (0.0-1.0); %Eosinophils 1.2 % (0.0-10.0); %Lymphocytes 15.5 % (21.0-51.0); %Monocytes 8.5 % (0.0-10.0); %Neutrophils 74.2 % (42.0-75.0); Hemoglobin 8.1 g/dL (14.0-18.0); Mean Corpuscular Hemoglobin 29.9 pg (27.0-31.0); Mean Corpuscular Volume 96.2 fL (78.0-98.0); Platelet Count 249 thou/uL (130-400); RBC Distribution Width 14.6 % (11.5-14.5); Red Blood Cell (RBC) Count 2.71 mill/uL (4.70-6.10); White Blood Cell (WBC) Count 17.8 thou/uL (4.8-10.8)
[2018-11-01] MEDS: Nicotine 7 MG PATCH TD SCH (13:30)
--- NOTE | 2018-11-01 14:09 | PDOC.CTH ---
Cardiology Progress Note - Subjective Pt.seen, feels better. Nonew overnight events. - Objective Vital Signs Temp Pulse Pulse Pulse Resp BP BP 11/01/18 13:39 76 18 11/01/18 11:54 98.8 F 94 18 11/01/18 11:01 89 93 149/64 H 165/70 H 11/01/18 08:03 92 16 11/01/18 07:15 98.5 F 97 18 11/01/18 07:10 11/01/18 03:25 98.3 F 77 20 BP Pulse Ox Pulse Ox Pulse Ox 11/01/18 13:39 90 L 11/01/18 11:54 129/69 11/01/18 11:01 95 96 11/01/18 08:03 92 L 11/01/18 07:15 105/97 H 94 L 11/01/18 07:10 94 L 11/01/18 03:25 99/53 L 96 Weight 276 lb 6 oz 10/31/18 11/01/18 11/02/18 06:59 06:59 06:59 Intake Total 1960 1755 Output Total 3650 2200 Balance -1690 -445 - Physical Examination General/Neuro: alert & oriented x3 Neck: no JVD present Lungs: CTA, other: (No wheeze today.) Heart: RRR Abdomen: NT/ND, soft - Labs Result Diagrams: 11/01/18 06:22 11/01/18 03:59 Troponin/CKMB Troponin I 0.026 ng/mL (< 0.028) 10/27/18 18:44 - Assessment/Plan 1. Paroxysmal afib with RVR - converted back to NSR around 1430. On Flecanide 50mg BID since 10/29/2018 and Diltiazem . Not on BBlocker due to possible COPD and worsening SOB now; Aspirin 325mg qd alone for stroke prophylaxis as CHADS VASc score of 1. 2. HTN - stable 3. Acute on Chronic diastolic HF - Not BLE edema or ABD bloating; Lasix IV was held today due to elevated Bicarb level; cont. SOB. Albuterol was ordered by PCP 4. Tobacco abuse - 5. Cannabis abuse - 6. Obesity - MAR reviewed
[2018-11-01 18:07] LABS: Hemoglobin 7.6 g/dL (14.0-18.0)
--- NOTE | 2018-11-01 19:44 | RAD ---
RADIOGRAPH CHEST 1 VIEW: DATE: 11/01/2018 HISTORY: 53-year-old male with dyspnea and leukocytosis FINDINGS: There are no airspace densities, pulmonary edema, pneumothorax, or cardiomegaly. The lateral costophr enic angles are sharp. IMPRESSION: No acute cardiopulmonary findings.
--- NOTE | 2018-11-01 19:54 | PDOC.EVN ---
Event Note - Event Note Event Note: Pt re-evaluated and hemoglobin this evening is 7.6. given concern for GI bleed and drop over 2 days, recommend transfusion of 1 unit prbc. Reviewed risks/ benefits of transfusion with patient - he verbally consents to transfusion. Will request RN obtain written consent, and transfuse 1 unit per protocol. REcheck CBC in AM. Pt has been seen by Dr. Calvillo with plan for endoscopy tomorrow. No questions or further needs at end of discussion.
[2018-11-01] MEDS ORDERED: Acetaminophen 325 MG TAB PO SCH (20:00)
[2018-11-01] MEDS: Pantoprazole 40 MG VIAL IVP SCH (20:36)
[2018-11-02 01:51] LABS: Hemoglobin 8.3 g/dL (14.0-18.0)
[2018-11-02 03:11] LABS: ALT (SGPT) 75 U/L (8-55); AST (SGOT) 48 U/L (5-34); Albumin 2.9 g/dL (3.5-5.0); Alkaline Phosphatase 63 U/L (40-150); BUN (Urea Nitrogen) 17 mg/dL (8.4-25.7); Bilirubin, Total 0.6 mg/dL (0.2-1.2); Calc. Creatinine Clearance 182 mL/min (70-130); Calcium 8.7 mg/dL (7.8-10.44); Estimated GFR-MDRD Greater than 90; Globulin 2.6 g/dL (2.4-3.5); Glucose 117 mg/dL (70-105); Protein, Total 5.5 g/dL (6.0-8.3)
[2018-11-02 03:20] LABS: Anion Gap 14 mmol/L (10-20); Carbon Dioxide 34 mmol/L (22-29); Chloride 94 mmol/L (98-107); Potassium 3.7 mmol/L (3.5-5.1); Sodium 138 mmol/L (136-145)
[2018-11-02] MEDS ORDERED: GoLYTELY 4,000 ml Bottle PO SCH (06:00)
[2018-11-02 08:56] LABS: #Basophils 0.1 thou/uL (0.0-0.2); #Eosinphils 0.3 thou/uL (0.0-0.7); #Lymphocytes 2.6 thou/uL (1.20-3.40); #Monocytes 1.5 thou/uL (0.11-0.59); #Neutrophils 12.6 thou/uL (1.40-6.50); %Basophils 0.4 % (0.0-1.0); %Eosinophils 1.6 % (0.0-10.0); %Lymphocytes 15.4 % (21.0-51.0); %Monocytes 8.8 % (0.0-10.0); %Neutrophils 73.8 % (42.0-75.0); Hemoglobin 9.4 g/dL (14.0-18.0); Mean Corpuscular HGB CONC 32.2 g/dL (32.0-36.0); Mean Corpuscular Hemoglobin 30.2 pg (27.0-31.0); Mean Corpuscular Volume 93.8 fL (78.0-98.0); Mean Platelet Volume 7.2 fL (7.4-10.4); Platelet Count 256 thou/uL (130-400); RBC Distribution Width 15.8 % (11.5-14.5); Red Blood Cell (RBC) Count 3.09 mill/uL (4.70-6.10); White Blood Cell (WBC) Count 17.1 thou/uL (4.8-10.8)
[2018-11-02] MEDS: Senokot S 8.6-50 MG TAB PO SCH ×2 (09:11→20:32)
[2018-11-02] MEDS: Flecainide 50 MG TAB PO SCH ×2 (09:11→20:32)
[2018-11-02] MEDS: Pantoprazole 40 MG VIAL IVP SCH ×2 (09:11→20:31)
--- NOTE | 2018-11-02 09:13 | PDOC.PN ---
- Subjective Encounter Start Date: 11/02/18 (f/u GIB) Encounter Start Time: 09:12 Subjective: Pt reports he is feeling better today - breathing feels better. -: denies any n/v/abd pain/cp. Some SOB with walking. Has -: completed colonoscopy prep - Objective Resuscitation Status - Order Detail: 10/28/18 06:50 Resuscitation Status Routine Resuscitation Status: FULL: Full Resuscitation Vital Signs & Weight: Vital Signs (12 hours) Temp Pulse Resp BP Pulse Ox 11/02/18 07:43 97.8 F 89 20 123/76 93 L 11/02/18 06:51 78 16 92 L 11/02/18 03:13 98.4 F 88 20 155/70 H 91 L 11/02/18 00:07 98.7 F 84 18 124/68 96 11/01/18 23:27 80 16 Weight Weight 276 lb 6 oz I&O: 11/01/18 11/02/18 11/03/18 06:59 06:59 06:59 Intake Total 1755 3910 Output Total 2200 1375 Balance -445 2535 Result Diagrams: 11/02/18 08:31 11/02/18 01:43 EKG Reviewed by me: Yes (tele - sinus 70-90's) Phys Exam - Physical Examination Constitutional: NAD Respiratory: no wheezing, no rales, no rhonchi distant breath sounds Cardiovascular: RRR, no significant murmur Gastrointestinal: soft, no distention, positive bowel sounds some ttp along the lower right quadrant - no rebound/guarding or palpable abnormality Musculoskeletal: no edema Neurological: non-focal, moves all 4 limbs Psychiatric: normal affect Dx/Plan (1) GI bleed Code(s): K92.2 - GASTROINTESTINAL HEMORRHAGE, UNSPECIFIED Status: Acute Qualifiers: GI bleed type/associated pathology: unspecified gastrointestinal hemorrhage type Qualified Code(s): K92.2 - Gastrointestinal hemorrhage, unspecified (2) Atrial fibrillation Code(s): I48.91 - UNSPECIFIED ATRIAL FIBRILLATION Status: Acute (3) Diastolic heart failure Code(s): I50.30 - UNSPECIFIED DIASTOLIC (CONGESTIVE) HEART FAILURE Status: Acute Qualifiers: Heart failure chronicity: acute Qualified Code(s): I50.31 - Acute diastolic (congestive) heart failure (4) Tobacco abuse Code(s): Z72.0 - TOBACCO USE Status: Chronic (5) Cannabis abuse Code(s): F12.10 - CANNABIS ABUSE, UNCOMPLICATED Status: Chronic (6) Obesity (BMI 35.0-39.9 without comorbidity) Code(s): E66.9 - OBESITY, UNSPECIFIED Status: Chronic (7) Hypertension Code(s): I10 - ESSENTIAL (PRIMARY) HYPERTENSION Status: Chronic Qualifiers: Hypertension type: essential hypertension Qualified Code(s): I10 - Essential (primary) hypertension (8) Anemia Code(s): D64.9 - ANEMIA, UNSPECIFIED Status: Acute - Plan * * Presentation concerning for new GI bleed - given significant drop over 2 days * d/c aspirin and lovenox yesterday * continue IV protonic BID * endoscopy with Dr. Calvillo today * s/p 1 unit PRBC overnight - improved h/h * * Pt was due to have a MUGA scan yesterday - anticipate this can be completed in the next 1-2 days * * Leukocytosis - monitor, no focal signs of infection. CXR normal yesterday * * Appreciate Cardiology consult - A fib with RVR - now back in sinus rhythm on oral dilt and flecainide * Diastolic HF - bicarb level improved and lasix has been held for a few days * Tobacco abuse - continue nicotine patch * Dyspnea -improved, continue nebs * PT/OT consults placed * * Elevated lft's - will need outpatient f/u * * dvt prophy - SCD's only * gi prophy - not indicated * code status full * * reviewed plan of care with patient, no questions or further needs at end of eval * pt remains at high risk in current condition. * anticipate a few more days inpatient to complete both GI and cardiac evals *
--- NOTE | 2018-11-02 11:00 | CON ---
DATE OF CONSULTATION: 11/01/2018 REASON FOR CONSULTATION: Drop in blood count and history of black tarry stool. HISTORY OF PRESENT ILLNESS: Mr. Logan Gu is a very pleasant 53-year-old obese, male hospitalized two days ago with epigastric discomfort, generalized weakness, and was found to have atrial fibrillation. He was started on diltiazem and was converted back to sinus rhythm. He has been seen by Dr. Nicholas García of Cardiology. The patient has history of methamphetamine intake and also he does smoke marijuana off and on. The patient claims that he has not been using methamphetamine for a couple of years. However, the urine came back positive for meth. The patient was started on aspirin and also he was on Lovenox. The patient has normal CBC on admission. He was bunny to have drop in blood count today 7.6 and repeat hemoglobin obtained today 8.1. Informed doctor that he may have some tarry stool since admission. Prior to admission, he had no black tarry stool. The patient is very healthy male who has had no heart disease, lung disease, diabetes. The patient has history of labile hypertension and was taking some medicine for it. The patient has seen Dr. Arce for physical exam about 2 or 3 weeks ago and had routine blood tests and stool examination. following that he has positive blood in the stool. However, he has no history of overt GI bleeding. History of black tarry stool started 2 days ago. He had no nausea. No abdominal pain. No dyspepsia. No history of heartburn, indigestion, or dysphagia. He has no GI symptoms. ALLERGIES: NONE. SOCIAL HISTORY: The patient is . 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 He smokes marijuana off and on. He denies any alcohol abuse. He is taking methamphetamine until 2 years ago as per the patient. He is a smoker and was smoking a packet before, but has cut down about 3 or 4 cigarettes especially a month ago. PAST SURGICAL HISTORY: No surgeries. FAMILY HISTORY: Mother had some cancer, but he is not able to tell me what kind of cancer. Father has hypertension and heart disease. Grandfather, heart disease. MEDICATION LIST: Reviewed. REVIEW OF SYSTEMS: 10-point system reviewed. HEAD: No chronic headache. No dizziness. ENT: No diplopia. No impaired vision. No hearing loss. No nose bleed or sore throat. NECK: No stiffness or limitation of movement. LUNGS: No chronic coughing, hemoptysis, or dyspnea. CARDIOVASCULAR: No chest pain. No palpitation. No dyspnea, orthopnea, or PND. GI: Not relevant. : Unremarkable. MUSCULOSKELETAL: Unremarkable. NEUROLOGIC: Unremarkable. ENDOCRINE: Unremarkable. PSYCHIATRY: No depression or anxiety. PHYSICAL EXAMINATION: GENERAL: The patient is obese, appears comfortable. VITAL SIGNS: Afebrile, pulse is 94, blood pressure 165/70. HEENT: Conjunctivae clear. NECK: Supple. No adenitis or thyromegaly noted. CARDIOVASCULAR: First and second heart sounds heard. LUNGS: Clear to auscultation. ABDOMEN: Soft and nontender. No organomegaly or masses. EXTREMITIES: Reveal no edema. LABORATORY DATA: CBC today; WBC 17,800, hemoglobin is 8.1, hematocrit 26.1, MCV is 296.2, platelet count 249,000, polymorphs 74, lymphocytes 15. On admission, he had a normal hemoglobin 13.9, hematocrit 45. Chemistry panels from today, lytes are normal. Chloride 92, bicarb is 41, BUN has gone over 27, but is actually higher than admission of 31, creatinine is 0.72, glucose 105, calcium 8.4. Iron is low at 15. CLINICAL IMPRESSION: 1. A 53-year-old male with epigastric discomfort, generalized weakness and found to be in atrial fibrillation. He is back in sinus rhythm. The patient has seen Dr. Arce about 3 weeks and had a stool exam done. The stool was positive for occult blood as per the patient. The patient has had no bleeding until the day of admission when he was having some dark stools. Blood count on admission was 13.9 dropping to 7.6. 2. Obesity. 3. History of elevated hypertension. 4. Elevated BUN, most likely from the history of gastrointestinal bleeding. RECOMMENDATION: 1. Change diet to clear liquid diet. 2. We will plan EGD because of possibility of GI bleeding and for colonoscopy because of positive stool testing as outpatient. I have explained the patient about the bowel prep and dietary restrictions. He is agreeable for to do a GoLYTELY and get ready for colonoscopy tomorrow. I will plan for EGD and colonoscopy tomorrow. Job ID: [id number]
--- NOTE | 2018-11-02 12:40 | PDOC.CTH ---
Cardiology Progress Note - Subjective Hgb coming down, needed a blood transfusion last night. Breathing much better. - Objective Vital Signs Temp Pulse Resp BP Pulse Ox 11/02/18 11:37 98.1 F 89 20 122/61 94 L 11/02/18 07:43 97.8 F 89 20 123/76 93 L 11/02/18 06:51 78 16 92 L 11/02/18 03:13 98.4 F 88 20 155/70 H 91 L Weight 276 lb 6 oz 11/01/18 11/02/18 11/03/18 06:59 06:59 06:59 Intake Total 1755 3910 Output Total 2200 1375 Balance -445 2535 - Physical Examination General/Neuro: alert & oriented x3, NAD Neck: no JVD present Lungs: CTA, unlabored respirations Heart: RRR Abdomen: NT/ND Extremities: other: (no edema) - Telemetry Telemetry Rhythm: NSR - Labs Result Diagrams: 11/02/18 08:31 11/02/18 01:43 Troponin/CKMB Troponin I 0.026 ng/mL (< 0.028) 10/27/18 18:44 - Assessment/Plan 1. Paroxysmal afib 2. Substance abuse. 3. HTN 4. Acute diastolic CHF. 5. Anemia. PLAN: - PO diltiazem. - Continue current flecainide dose. - Aspirin alone for stroke prophylaxis as CHADS VASc score of 1. - MUGA pending for today. - Will stop Lasix and switch to PRN.
[2018-11-02] MEDS ORDERED: Promethazine HCl 25 MG/ML VIAL SLOW IVP PRN (15:39)
[2018-11-02] MEDS ORDERED: Ondansetron HCl/PF 4 MG/2 ML Vial IVP PRN (15:39)
[2018-11-02] MEDS ORDERED: Promethazine HCl 25 MG/ML VIAL IM PRN (15:39)
[2018-11-02] MEDS: Furosemide 40 MG/4 ML VIAL SLOW IVP SCH (16:15)
[2018-11-02] MEDS: Nicotine 7 MG PATCH TD SCH (16:18)
[2018-11-02 16:41] LABS: Hemoglobin 8.9 g/dL (14.0-18.0)
--- NOTE | 2018-11-03 04:18 | OP ---
DATE OF PROCEDURE: 11/02/2018 OPERATIVE PROCEDURE: Esophagogastroduodenoscopy with biopsy. PREOPERATIVE DIAGNOSES: Melena, drop in blood count. POSTOPERATIVE DIAGNOSES: 1. Shallow ulcer of the gastric antrum. 2. Antral gastritis and erosions. 3. Ulceration in the duodenal bulb with duodenitis. DESCRIPTION OF PROCEDURE: The patient was placed on his left lateral position and was given sedation by Anesthesia Department. A Pentax video gastroscope under direct vision passed down the oropharynx, past the GE junction into the stomach and subsequently into the descending duodenum. The esophageal mucosa appeared normal. No esophagitis, no erosions. GE junction, no pathology. Retroflexion failed to show any pathology in fundus or cardia. gastric body and also gastric antrum. The patient found to have gastritis and erosions. There was a shallow ulcer of the gastric antrum. The duodenal mucosa appears markedly hyperemic, edematous, indicative of duodenitis. There was ulceration in the duodenal bulb. The ulcer base appears very smooth and does not visible vessel. The descending duodenum, no pathology. The scope was withdrawn back into the stomach and biopsies obtained from the stomach for Helicobacter pylori. The stomach decompressed and the scope removed. RECOMMENDATION: 1. No aspirin. 2. No NSAID. 3. Protonix 40 once a day. 4. If the CLOtest comes positive for Helicobacter, treat accordingly. Job ID: [id number]
--- NOTE | 2018-11-03 04:30 | OP ---
DATE OF PROCEDURE: 11/02/2018 OPERATIVE PROCEDURE: Colonoscopy with polypectomy. Colonoscopy with 10-Citizen [place] BICAP therapy at polypectomy site because of bleeding. PREOPERATIVE DIAGNOSES: 1. Anemia. 2. History of melena. 3. Positive stool guaiacs. POSTOPERATIVE DIAGNOSES: 1. A 1-cm size sessile polyp in proximal transverse colon close to hepatic flexure, status post snare cautery. 2. Sessile polyp sigmoid colon, status post snare cautery with good hemostasis. 3. Broad-based large sessile polyp over the sigmoid colon area status post snare cautery with good hemostasis. 4. Sigmoid diverticular disease. DESCRIPTION OF PROCEDURE: The patient was placed on his left lateral position and was given sedation by Anesthesia Department. A rectal exam was done before the scope was advanced into the rectum. No lesions felt on rectal exam. A Pentax video colonoscope was introduced into the rectum and advanced all the way into the cecum. The prep is very good. The mucosa appears normal throughout the colon with normal vascular pattern. The appendiceal orifice, ileocecal wall, cecum, well seen and no pathology seen. Withdrawal of scope from the cecum to ascending colon, no pathology seen. A 1 cm sessile polyp seen around the hepatic flexure and the proximal transverse colon. This was removed with snare cautery. However, the polypectomy site did not cauterize very well and has been cauterized with a 10-[place]izen [place] BICAP probe with good hemostasis achieved. The remainder of transverse colon area, splenic flexure, descending colon no pathology. The sigmoid colon showed scattered diverticular disease. There were 2 polyps seen in the lower sigmoid area. One was small and sessile, this was easily removed with snare cautery. There was another broad-based sessile polyp near the same polyp, this polyp was removed with snare cautery with good hemostasis. Retroflexion of scope in the rectum showed no pathology. Job ID: [id number]
[2018-11-03] MEDS: Furosemide 40 MG/4 ML VIAL SLOW IVP SCH (05:51)
[2018-11-03 06:22] LABS: #Eosinphils 0.3 thou/uL (0.0-0.7); #Lymphocytes 2.3 thou/uL (1.20-3.40); #Monocytes 1.2 thou/uL (0.11-0.59); %Basophils 0.2 % (0.0-1.0); %Eosinophils 2.2 % (0.0-10.0); %Lymphocytes 17.7 % (21.0-51.0); %Monocytes 9.2 % (0.0-10.0); %Neutrophils 70.6 % (42.0-75.0); Mean Corpuscular HGB CONC 31.8 g/dL (32.0-36.0); Mean Corpuscular Volume 94.3 fL (78.0-98.0); Mean Platelet Volume 6.8 fL (7.4-10.4); Platelet Count 202 thou/uL (130-400); RBC Distribution Width 15.5 % (11.5-14.5); Red Blood Cell (RBC) Count 2.66 mill/uL (4.70-6.10); White Blood Cell (WBC) Count 12.7 thou/uL (4.8-10.8)
[2018-11-03 06:44] LABS: BUN (Urea Nitrogen) 14 mg/dL (8.4-25.7); Calc. Creatinine Clearance 187 mL/min (70-130); Calcium 8.4 mg/dL (7.8-10.44); Estimated GFR-MDRD Greater than 90; Glucose 100 mg/dL (70-105)
[2018-11-03 06:53] LABS: Anion Gap 11 mmol/L (10-20); Carbon Dioxide 37 mmol/L (22-29); Chloride 95 mmol/L (98-107); Potassium 3.3 mmol/L (3.5-5.1); Sodium 140 mmol/L (136-145)
[2018-11-03] MEDS: Flecainide 50 MG TAB PO SCH ×2 (07:04→20:47)
[2018-11-03] MEDS: Senokot S 8.6-50 MG TAB PO SCH ×2 (08:27→20:47)
[2018-11-03] MEDS: Potassium Chloride 20 MEQ TAB PO SCH ×2 (08:27→16:04)
[2018-11-03] MEDS: Pantoprazole 40 MG VIAL IVP SCH (08:28)
--- NOTE | 2018-11-03 11:44 | PRG ---
DATE OF SERVICE: 11/03/2018 SUBJECTIVE: This is a 53-year-old male, hospitalized over the weekend because of generalized weakness, fatigue, abdominal pain, was found to be in atrial fibrillation. Converted back to sinus rhythm. He was on Lovenox and aspirin and developed bleeding with drop in blood count. Underwent EGD yesterday which revealed nonbleeding ulcer in the duodenum and he also had gastric erosion and a small ulcer in the antrum. He underwent colonoscopy with polypectomy. The patient done well overnight. No abdominal pain. No nausea or vomiting. No hematochezia or melena. He appears to be back in atrial fibrillation again. He denies any chest pain or palpitations. OBJECTIVE: VITAL SIGNS: Pulse is 130, blood pressure is 126/70. CARDIOVASCULAR: First and second heart sounds heard. LUNGS: Clear to auscultation. ABDOMEN: Soft. No organomegaly. No tenderness. No masses. LABORATORY DATA: From this morning again shows drop in blood count from 9.4 hemoglobin at 8:00 yesterday morning to 8.9 last night and today 8. However, he has had no bleeding after. RECOMMENDATIONS: 1. Continue PPI. Follow up H and H. 2. Transfuse. Job ID: [id number]
--- NOTE | 2018-11-03 11:48 | PDOC.PN ---
- Subjective Encounter Start Date: 11/03/18 (f/u anemia) Encounter Start Time: 11:45 Subjective: Pt reports not feeling as well - states he felt nervous today, which -: occurred around the same time as converting back to a fib. He -: denies any pain - Objective Resuscitation Status - Order Detail: 10/28/18 06:50 Resuscitation Status Routine Resuscitation Status: FULL: Full Resuscitation Vital Signs & Weight: Vital Signs (12 hours) Temp Pulse Resp BP BP Pulse Ox 11/03/18 11:13 97.7 F 99 20 115/66 94 L 11/03/18 07:11 104 H 18 94 L 11/03/18 07:05 97.9 F 113 H 18 126/75 92 L 11/03/18 03:30 97.6 F 85 20 119/61 95 11/03/18 00:19 12 Weight Weight 276 lb 3 oz I&O: 11/02/18 11/03/18 11/04/18 06:59 06:59 06:59 Intake Total 3910 3600 Output Total 1375 2805 Balance 2535 795 Result Diagrams: 11/03/18 05:59 11/03/18 05:59 EKG Reviewed by me: Yes (tele - a fib with rate 90-100's) Phys Exam - Physical Examination Constitutional: NAD Respiratory: no wheezing, no rales, no rhonchi distant breath sounds Cardiovascular: no significant murmur, irregular Gastrointestinal: soft, non-tender, no distention, positive bowel sounds Musculoskeletal: no edema Neurological: non-focal, moves all 4 limbs Psychiatric: normal affect Dx/Plan (1) GI bleed Code(s): K92.2 - GASTROINTESTINAL HEMORRHAGE, UNSPECIFIED Status: Acute Qualifiers: GI bleed type/associated pathology: unspecified gastrointestinal hemorrhage type Qualified Code(s): K92.2 - Gastrointestinal hemorrhage, unspecified (2) Atrial fibrillation Code(s): I48.91 - UNSPECIFIED ATRIAL FIBRILLATION Status: Acute (3) Diastolic heart failure Code(s): I50.30 - UNSPECIFIED DIASTOLIC (CONGESTIVE) HEART FAILURE Status: Acute Qualifiers: Heart failure chronicity: acute Qualified Code(s): I50.31 - Acute diastolic (congestive) heart failure (4) Tobacco abuse Code(s): Z72.0 - TOBACCO USE Status: Chronic (5) Cannabis abuse Code(s): F12.10 - CANNABIS ABUSE, UNCOMPLICATED Status: Chronic (6) Obesity (BMI 35.0-39.9 without comorbidity) Code(s): E66.9 - OBESITY, UNSPECIFIED Status: Chronic (7) Hypertension Code(s): I10 - ESSENTIAL (PRIMARY) HYPERTENSION Status: Chronic Qualifiers: Hypertension type: essential hypertension Qualified Code(s): I10 - Essential (primary) hypertension (8) Anemia Code(s): D64.9 - ANEMIA, UNSPECIFIED Status: Acute - Plan * * Presentation concerning for new GI bleed - s/p endoscopy yesterday with duodenal ulcer - no active bleeding, 3 polyps resected and sigmoid diverticulosis * recs from Dr. Calvillo - no nsaids or aspirin, await FABIANA test results for H Pylori, and daily PO PPI * recheck h/h at 14:00 today and transfuse if less than 8 * * Appreciate Cardiology consult - A fib rate controlled - oral dilt and flecainide and MUGA scan pending * Diastolic HF - aopears compensated - d/c scheduled lasix * replace potassium * * Tobacco abuse - continue nicotine patch * Dyspnea -improved, continue nebs * PT/OT consults placed * * Elevated lft's - will need outpatient f/u * * dvt prophy - SCD's only * gi prophy - not indicated * code status full * * reviewed plan of care with patient, no questions or further needs at end of eval * pt remains at high risk in current condition. * anticipate a few more days for optimizing cardiac status/a fib and await stable h/h
[2018-11-03] MEDS: Nicotine 7 MG PATCH TD SCH (14:18)
--- NOTE | 2018-11-03 14:21 | NM ---
NUCLEAR MEDICINE MUGA SCAN: DATE: 11/03/2018. HISTORY: A 53-year-old male with dyspnea. TECHNIQUE: 27 mCi of Technetium 99m-tagged erythrocytes injected IV. Multigated acquisition of left ventricle obtained in short axis ROMANIAN view. FINDINGS: EF=56%. IMPRESSION: Normal left ventricular ejection fraction of 56%. POS: [facility]
[2018-11-03 14:48] LABS: Hemoglobin 8.7 g/dL (14.0-18.0)
--- NOTE | 2018-11-03 15:21 | PDOC.CTH ---
Cardiology Progress Note - Subjective Doing much better. Found ot have a gastric ulcer but no stigma of recent bleeding. - Objective Vital Signs Temp Pulse Pulse Pulse Resp BP BP 11/03/18 11:13 97.7 F 99 20 11/03/18 10:26 103 H 111 H 108/59 L 110/84 11/03/18 07:11 104 H 18 11/03/18 07:05 97.9 F 113 H 18 11/03/18 03:30 97.6 F 85 20 BP BP Pulse Ox 11/03/18 11:13 115/66 94 L 11/03/18 10:26 11/03/18 07:11 94 L 11/03/18 07:05 126/75 92 L 11/03/18 03:30 119/61 95 Weight 276 lb 3 oz 11/02/18 11/03/18 11/04/18 06:59 06:59 06:59 Intake Total 3910 3600 Output Total 1375 2805 Balance 2535 795 - Physical Examination General/Neuro: alert & oriented x3, NAD Neck: no JVD present Lungs: CTA, unlabored respirations Heart: RRR Abdomen: NT/ND Extremities: other: (trace edema) - Telemetry Telemetry Rhythm: NSR, PAC's - Labs Result Diagrams: 11/03/18 14:33 11/03/18 05:59 Troponin/CKMB Troponin I 0.026 ng/mL (< 0.028) 10/27/18 18:44 - Assessment/Plan 1. Paroxysmal afib 2. Substance abuse. 3. HTN 4. Acute diastolic CHF. 5. Anemia. 6. Normal LV function on MUGA scan. PLAN: - PO diltiazem and flecainide. - Aspirin alone for stroke prophylaxis as CHADS VASc score of 1 and GI bleeding , may hold for an indeterminate amount of time per GI. - Lasix PRN only. - Replace K. - May discharge home any time from cardiac perspective. - Follow up in the office in 4 weeks.
[2018-11-04 06:47] LABS: #Eosinphils 0.2 thou/uL (0.0-0.7); #Lymphocytes 1.9 thou/uL (1.20-3.40); #Monocytes 1.1 thou/uL (0.11-0.59); #Neutrophils 8.1 thou/uL (1.40-6.50); %Basophils 0.4 % (0.0-1.0); %Lymphocytes 16.6 % (21.0-51.0); %Monocytes 9.3 % (0.0-10.0); %Neutrophils 71.7 % (42.0-75.0); Hemoglobin 8.3 g/dL (14.0-18.0); Mean Corpuscular HGB CONC 31.2 g/dL (32.0-36.0); Mean Corpuscular Volume 95.9 fL (78.0-98.0); Platelet Count 224 thou/uL (130-400); Red Blood Cell (RBC) Count 2.76 mill/uL (4.70-6.10); White Blood Cell (WBC) Count 11.3 thou/uL (4.8-10.8)
[2018-11-04 07:12] LABS: Anion Gap 12 mmol/L (10-20); BUN (Urea Nitrogen) 15 mg/dL (8.4-25.7); Calc. Creatinine Clearance 198 mL/min (70-130); Calcium 8.9 mg/dL (7.8-10.44); Carbon Dioxide 36 mmol/L (22-29); Chloride 97 mmol/L (98-107); Estimated GFR-MDRD Greater than 90; Glucose 100 mg/dL (70-105); Potassium 3.6 mmol/L (3.5-5.1); Sodium 141 mmol/L (136-145)
--- NOTE | 2018-11-04 08:47 | PQF ---
KELLIEJACQUELINE CABALLERO [id number] CLINICAL DOCUMENTATION IMPROVEMENT CLARIFICATION FORM: ICD-10 Updated PLEASE DO AN ADDENDUM TO THE PROGRESS NOTE WITH ANY DOCUMENTATION UPDATES OR ADDITIONS AND CARRY THROUGH TO DC SUMMARY. THANK YOU. DATE: 11/04 ATTN : DR. JACQUELINE BELLO Please exercise your independent, professional judgment in responding to the clarification form. Clinical indicators are provided on the bottom of this form for your review. Please check appropriate box(s): [ xx ] Acute blood loss anemia [ ] Chronic Anemia: [ ] Blood loss [ ] Other [ ] Other diagnosis [ ] Unable to determine In addition, please specify: Present on Admission (POA): [ ] Yes [xx ] No [ ] Unable to determine For continuity of documentation, please document condition throughout progress notes and discharge summary. Thank You. CLINICAL INDICATORS - SIGNS / SYMPTOMS / LABS H/H: 14.6/48.1 - 7.6/23.3 (10/28 - 11/04) 11/01 - 11/03 PN (EUGENIA): DX/PLAN: 1) ACUTE GI BLEED; 8) ACUTE ANEMIA, UNSPECIFIED; PLAN: PRESENTATION CONCERNING FOR NEW GI BLEED - GIVEN SIGNIFICANT DROP OVER 2 DAYS; PLAN 11/02: S/P 1U PRBC OVERNIGHT - IMPROVED H/H RISKS: POSITIVE BLOOD IN STOOL PIGMENT PROCESSOR (GI CONSULT 11/01) DROP IN H/H (10/31 PN) TREATMENT: TRANSFUSION 1U PRBC (11/01) GI CONSULT (11/01 THANK YOU! [employer] (This form is maintained as a part of the permanent medical record) 2014 [employer]. All Rights Reserved Terra Bond, RN, BSN [email or web address] Office: [phone] [facility]
--- NOTE | 2018-11-04 09:01 | PDOC.PN ---
- Subjective Encounter Start Date: 11/04/18 (f/u GIB) Encounter Start Time: 08:59 Subjective: Pt reports he is feeling well and feels ready to go home. Denies any -: pain or problems breathng. Denies any new sx. - Objective Resuscitation Status - Order Detail: 10/28/18 06:50 Resuscitation Status Routine Resuscitation Status: FULL: Full Resuscitation Vital Signs & Weight: Vital Signs (12 hours) Temp Pulse Resp BP BP Pulse Ox 11/04/18 08:00 98.6 F 98 22 H 124/69 92 L 11/04/18 07:28 88 16 98 11/04/18 04:00 97.6 F 72 14 106/56 L 92 L 11/04/18 00:45 100 16 Weight Weight 272 lb I&O: 11/03/18 11/04/18 11/05/18 06:59 06:59 06:59 Intake Total 3600 1280 Output Total 2805 1950 Balance 795 -670 Result Diagrams: 11/04/18 06:29 11/04/18 06:29 EKG Reviewed by me: Yes (tele - intermittent a fib and sinus, rates 70-100's) Phys Exam - Physical Examination Constitutional: NAD Respiratory: no wheezing, no rales, no rhonchi, clear to auscultation bilateral Cardiovascular: RRR, no significant murmur Gastrointestinal: soft, non-tender, no distention, positive bowel sounds Musculoskeletal: no edema, pulses present Neurological: non-focal, moves all 4 limbs Psychiatric: normal affect Dx/Plan (1) GI bleed Code(s): K92.2 - GASTROINTESTINAL HEMORRHAGE, UNSPECIFIED Status: Resolved Qualifiers: GI bleed type/associated pathology: unspecified gastrointestinal hemorrhage type Qualified Code(s): K92.2 - Gastrointestinal hemorrhage, unspecified (2) Atrial fibrillation Code(s): I48.91 - UNSPECIFIED ATRIAL FIBRILLATION Status: Acute (3) Diastolic heart failure Code(s): I50.30 - UNSPECIFIED DIASTOLIC (CONGESTIVE) HEART FAILURE Status: Acute Qualifiers: Heart failure chronicity: acute Qualified Code(s): I50.31 - Acute diastolic (congestive) heart failure (4) Tobacco abuse Code(s): Z72.0 - TOBACCO USE Status: Chronic (5) Cannabis abuse Code(s): F12.10 - CANNABIS ABUSE, UNCOMPLICATED Status: Chronic (6) Obesity (BMI 35.0-39.9 without comorbidity) Code(s): E66.9 - OBESITY, UNSPECIFIED Status: Chronic (7) Hypertension Code(s): I10 - ESSENTIAL (PRIMARY) HYPERTENSION Status: Chronic Qualifiers: Hypertension type: essential hypertension Qualified Code(s): I10 - Essential (primary) hypertension (8) Anemia Code(s): D64.9 - ANEMIA, UNSPECIFIED Status: Acute Qualifiers: Other causes of anemia: acute posthemorrhagic - Plan * * GIB - s/p endoscopy with duodenal ulcer - not actively bleeding. Hold aspirin , continue PPI. Will need f/u wiht Dr. Calvillo for bx results and FABIANA test results * Appreciate Cardiology consult - A fib rate controlled - continue current dilt and flecanide. Aspirin when cleared by GI for stroke risk reduction. * Diastolic HF - aopears compensated - * * Tobacco abuse - continue nicotine patch - pt desires cessation * Elevated lft's - will need outpatient f/u * * dvt prophy - SCD's only * gi prophy - not indicated * code status full * * reviewed plan of care with patient, no questions or further needs at end of eval * pt remains at high risk in current condition. * anticipate d/c when oxygen is d/c - may be this afternoon.
[2018-11-04] MEDS: Senokot S 8.6-50 MG TAB PO SCH (09:41)
[2018-11-04] MEDS: Flecainide 50 MG TAB PO SCH (09:41)
[2018-11-04] MEDS: Nicotine 7 MG PATCH TD SCH (14:00)
[2018-11-04 18:14] VITALS: BP 127/74; TEMP 98.7
--- NOTE | 2018-11-05 06:13 | DIS ---
DATE OF ADMISSION: 10/27/2018 DATE OF DISCHARGE: 11/04/2018 CONSULTANTS: 1. Cardiology, Nicholas García MD. 2. GI, Radha Calvillo MD. MEDICATIONS: Medications are reconciled at discharge. Home medications; none. New medications: 1. Bismuth subsalicylate 524 mg 4 times daily for 2 weeks. 2. Metronidazole 500 mg t.i.d. for 2 weeks. 3. Tetracycline 500 mg four times daily for 2 weeks. 4. Pantoprazole 40 mg twice daily for 2 weeks, then once daily until directed otherwise by Dr. Calvillo. 5. Flecainide 50 mg b.i.d. 6. Diltiazem CD 240 mg once daily. 7. Nicotine patch 7 mg transdermal daily for 2 weeks and then discontinue. 8. Albuterol inhaler one puff every 4 hours as needed for wheezing or shortness of breath. 9. Ferrous gluconate 324 mg once daily. 10. Vitamin C 500 mg once daily. 11. Docusate sodium 100 mg b.i.d. Medications are prescribed for either the duration of therapy or for 30 days, further refills to come from either GI or Cardiology. Please note - quadruple therapy for H Pylori treatment chosen to reduce risk of QT prolongation associated with flecainide and some antibiotics. FINAL DIAGNOSES: 1. Atrial fibrillation with rapid ventricular response, now paroxysmal atrial fibrillation. 2. Gastrointestinal bleed secondary to H Pylor gastritis and duodenal ulcer. 3. Intestinal polyps, status post resection. 4. Post hemorrhagic anemia. 5. Acute diastolic heart failure, resolved. 6. Metabolic alkalosis likely secondary to diuresis. 7. Elevated LFTs, needs evaluation in the outpatient setting. SECONDARY DIAGNOSES: 1. History of hypertension. 2. Tobacco abuse. 3. Cannabis abuse. 4. Sigmoid diverticular disease. HISTORY OF PRESENT ILLNESS: Mr. Gu is a 53-year-old male who presented to the emergency room with a complaint of generally not feeling well, described as weak and fatigued. He has shortness of breath on mild exertion and intermittent palpitations. He was found to be in atrial fibrillation with rapid ventricular response and hospitalized. HOSPITAL COURSE: The patient has been treated for atrial fibrillation with RVR. The patient was started on a diltiazem drip, and eventually transitioned over to flecainide and oral diltiazem. He had an episode of return to rapid ventricular response, was returned to the diltiazem drip and subsequently transitioned back over to oral therapy. He has [id number] score of 1 and started on aspirin therapy for this. For the diastolic heart failure, he was diuresed with IV Lasix and has tolerated this well. He no longer requires this at discharge. The patient will follow up with Dr. García in the outpatient setting for management of the flecainide and diltiazem and to address any other health needs. GI bleed. This was new during this hospitalization. The patient had a drop in his hemoglobin, and on questioning, reports a history of blood in his stool that was recommended in outpatient workup, which had not been completed. The patient was evaluated by Dr. Calvillo and underwent endoscopy here in the hospital. It demonstrated polyps in the sigmoid colon, transverse colon, and sigmoid diverticular disease on the colonoscopy. And on the EGD, there was a shallow ulcer in the gastric antrum, antral gastritis and erosions that are H pylori positive, and ulceration in the duodenal bulb, with duodenitis. The patient was started on IV PPI and transitioned over to oral. There was no active bleeding found on endoscopy. The patient was transfused 1 unit of packed red blood cells and tolerated this well. It is recommended that he not be on any aspirin or NSAIDs. He also had a H pylori test that was positive and treatment is being initiated at discharge. He will follow up with Dr. Calvillo for this. Also for his heart, the patient underwent a MUGA scan which showed a normal EF of 56%. The patient has been managed with intermittent oxygen therapy while here, as well as nebulizer therapy. On day of discharge, he has not required any additional oxygen, and his breathing is well. He will follow up with his primary care provider with regard to any breathing concerns or problems, and is recommended that he stop all tobacco and cannabis. The patient will be discharged with an albuterol inhaler for as needed use. Iron deficiency anemia - secondary to acute and chronic GI bleed. The patient will be discharged on iron replacement due to the iron deficiency. He denies any symptoms and will need to follow up in the outpatient setting to ensure return to normal hemoglobin. The patient overall ambulating, denies any lightheadedness or dizziness, his hemoglobin has been stable, and his cardiology workup has been completed. He does meet criteria for discharge to home. PHYSICAL EXAMINATION: Please see note on chart. VANEGAS FINDINGS AND TEST RESULTS: Renal panel; today 141, 3.6, 97, 36, 15, 0.76, 100. LFTs; AST 48, ALT 75, alkaline phosphatase 63, total protein 5.5, albumin 2.9. BNP 229. Troponins x2 were negative. Vitamin B12 328, folate 11, iron 15, ferritin 28. CBC; today, 11.3, 8.3, 26.5, 224. At the lowest, patient's hemoglobin was 7.6 prior to transfusion. On admission, CBC 13.8, 13.9, 45, 251. MUGA scan performed on November 03 shows an EF of 56%. Colonoscopy shows a 1 cm sessile polyp in the proximal transverse colon close to the hepatic flexure, status post snare cautery; sessile polyp, sigmoid colon, status post snare cautery; broad-based large sessile polyp over the sigmoid colon, status post snare cautery; and sigmoid diverticular disease. EGD shows shallow ulcer of the gastric antrum, antral gastritis and erosions, ulceration in the duodenal bulb with duodenitis. Results of biopsy; H pylori, chronic active gastritis with intestinal metaplasia , fragments of tubular adenoma, hyperplastic polyp, tubulovillous adenoma cauterized stock margin appears free of adenomatous changes. Chest x-ray on November 01 shows no acute cardiopulmonary findings. CT angiogram on October 27, shows patchy ground-glass opacities and bilateral pleural effusions, limited evaluation of the pulmonary arterial system. No evidence of a pulmonary artery embolism to the level of the proximal main lobar arteries. DIET: Heart healthy. ACTIVITY: As tolerated. The patient advised to not return to work until he follows up with Dr. Arce in the outpatient setting early next week. CODE STATUS: Full. DISCHARGE DISPOSITION: Home. FOLLOW UP APPOINTMENTS: 1. Dr. García on November 30 at 15:[address] Arce on November 09 at 2:[address] Calvillo in 2-3 weeks for monitoring of gastritis and biopsy results, as well as any needed follow up. I reviewed with the patient this hospitalization, the importance of followup, the new medications including the initiation of H pylori treatment, to seek care precautions. He demonstrates understanding. Total time coordinating discharge is 50 minutes. Job ID: [id number] MTDD
--- NOTE | 2018-11-05 08:59 | PRG ---
DATE OF SERVICE: 11/04/2018 SUBJECTIVE: This is a 53-year-old male, hospitalized with new onset of atrial fibrillation. The patient had black tarry stool and drop in blood count. He had an EGD and a colonoscopy on Friday. The EGD showed nonbleeding gastric ulcer, gastric erosions, duodenitis. The colonoscopy showed 3 polyps. One polyp was very large and sessile. Visible vessel over the sigmoid colon area. The polyp . The patient done overall well over 48 hours. No abdominal pain. No hematochezia. No rectal bleeding. No melena. He is tolerating diet. The blood count has been fairly stable over the last 24 hour. The most recent laboratory data from today shows WBC 11,300, hemoglobin 8.3, and hematocrit 23.5. OBJECTIVE: GENERAL: He is obese, appears comfortable. VITAL SIGNS: Stable. CARDIOVASCULAR: Within normal limits. ABDOMEN: Soft. No organomegaly. No tenderness. No mass. CLINICAL IMPRESSION: 1. Large ulcer in the duodenum, nonbleeding at the time of endoscopy. 2. Duodenitis. 3. Gastric erosions and gastritis. 4. Multiple colon polyps. One was a very large the gastric biopsy showed Helicobacter pylori. RECOMMENDATIONS: 1. The patient should stay on Protonix and to avoid aspirin and NSAID medication. 2. We will treat him as an outpatient see me in the next couple of weeks. He should have a repeat colonoscopy in 1 year because of the large sessile polyp was removed. Job ID: [id number]
== END 2018-11-04 18:15 | disposition home or self-care (01) | DRG 291 ==
LOC: ERS 14:17 → 2NO 17:27
PROVIDERS: ADMIT Internal Medicine; ATTEND Internal Medicine
PROC: 0DB78ZX Excision of Stomach, Pylorus, Via Natural or Artificial Opening Endoscopic, Diagnostic (ICD-10-PCS; principal; 2018-11-02)
PROC: 0DBN8ZZ Excision of Sigmoid Colon, Via Natural or Artificial Opening Endoscopic (ICD-10-PCS; 2018-11-02)
PROC: 0DBL8ZZ Excision of Transverse Colon, Via Natural or Artificial Opening Endoscopic (ICD-10-PCS; 2018-11-02)
DX: I13.0 Hypertensive heart and chronic kidney disease with heart failure and stage 1 through stage 4 chronic kidney disease, or unspecified chronic kidney disease (principal); J96.01 Acute respiratory failure with hypoxia; I50.31 Acute diastolic (congestive) heart failure; K29.01 Acute gastritis with bleeding; K29.81 Duodenitis with bleeding; K57.31 Diverticulosis of large intestine without perforation or abscess with bleeding; D62 Acute posthemorrhagic anemia; F12.10 Cannabis abuse, uncomplicated; D72.829 Elevated white blood cell count, unspecified; E66.01 Morbid (severe) obesity due to excess calories; E87.5 Hyperkalemia; I48.0 Paroxysmal atrial fibrillation; F19.10 Other psychoactive substance abuse, uncomplicated; F17.210 Nicotine dependence, cigarettes, uncomplicated; D12.5 Benign neoplasm of sigmoid colon; Z88.8 Allergy status to other drugs, medicaments and biological substances; Z68.36 Body mass index [BMI] 36.0-36.9, adult
CPT/HCPCS: 36415; 36430; 71045; 71275; 78472; 80048; 80053; 82274; 82607; 82728; 82746; 83540; 83735; 83880; 85014; 85018; 85025; 86850; 86900; 86901; 88305; 88312; 93005; 93306; 93798; 94640; 94760; 96365; 96366; A9604; C9113; J1650; J1940; J3475; J3490; J7620; P9016; Q9966

== ENCOUNTER 2019-02-11 17:46 | Inpatient (IN) | payer BC ==
[~2019-02-11 17:46] MED LIST: ISOVUE-370 76%-LOCM 1 ML ONE
--- NOTE | 2019-02-11 19:06 | CT ---
EXAM: CTA of the chest HISTORY: Chest tightness and shortness of breath COMPARISON: 10/27/2018 TECHNIQUE: Multiple contiguous axial images were obtained a CTA of the chest with contrast per pulmon han embolism protocol. 3-D oblique MIP reformats and direct coronal reformats were performed. FINDINGS: HEART: Normal in size without focal cardiac abnormality. PULMONARY ARTERIES: Normal in caliber without filling defects to suggest pulmonary emboli. MEDIASTINUM: Stable mildly prominent hilar and mediastinal lymph nodes. LUNGS: No focal infiltrates or masses. PLEURAL SPACE: Small bilateral pleural effusions with adjacent atelectasis. CHEST WALL SOFT TISSUES: Unremarkable VISUALIZED OSSEOUS STRUCTURES: Degenerative changes in the spine. VISUALIZED SUBDIAPHRAGMATIC STRUCTURES: Unremarkable IMPRESSION: 1. No evidence of pulmonary thromboembolism 2. Bilateral pleural effusions with adjacent atelectasis
[2019-02-11] MEDS ORDERED: Diltiazem 125 MG/25 ML ONE (19:35)
[2019-02-11 19:51] LABS: INR-International Normal Ratio 1.3; PTT 29.1 SEC (22.9-36.1); Prothrombin Time 16.1 SEC (12.0-14.7)
[2019-02-11] MEDS ORDERED: Acetaminophen 650 MG Suppository PR PRN (21:22)
[2019-02-11] MEDS ORDERED: Ondansetron ODT 4 MG TAB PO PRN (21:22)
[2019-02-11] MEDS ORDERED: Acetaminophen 325 MG TAB PO PRN (21:22)
[2019-02-11] MEDS ORDERED: Ondansetron PF 4 MG/2 ML Vial IVP PRN (21:22)
[2019-02-11] MEDS ORDERED: Diltiazem 125 MG in Sodium Chloride 0.9% 100 ML IVPB SCH (21:30)
--- NOTE | 2019-02-11 22:13 | HP ---
PRIMARY CARE DOCTOR: Dr. Zabala. CODE STATUS: Patient is full code. TIME OF EVALUATION: 9 p.m. CHIEF COMPLAINT: Shortness of breath. HISTORY OF PRESENT ILLNESS: This is a 53-year-old male patient, past medical history of atrial fibrillation, also morbid obesity, coronary artery disease, GERD, came to the hospital after having severe gradually worsening shortness of breath associated with weight gain of about 10 pounds in the past few days and also occasional feeling of his heart racing. The patient reported the symptoms are moderate with no clear triggers, no alleviating factors. He reported he follows Dr. García as outpatient and had been in control while taking his medications. He reported he is compliant with medications every day. REVIEW OF SYSTEMS: CONSTITUTIONAL: The patient reports some rigors. CARDIOVASCULAR: Some dyspnea on exertion, orthopnea, and palpitations. RESPIRATORY: Shortness of breath, some cough. No sputum production. All other systems reviewed and were negative except for the findings mentioned above. PAST MEDICAL HISTORY: As mentioned in HPI. PAST SURGICAL HISTORY: Facial laceration repair at age of 14. PSYCH HISTORY: No previous psych history. FAMILY HISTORY: Reviewed and non contributory for current presentation. SOCIAL HISTORY: No drugs. No alcohol. Former smoker, quit smoking a few years ago. KNOWN ALLERGIES: Citalopram, losartan. REPORTED MEDICATIONS: Cartia XT, lisinopril, and iron. PHYSICAL EXAMINATION: VITAL SIGNS: On presentation, blood pressure 147/98 with heart rate 110, respiratory rate was 36, oxygen saturation was 98% on room air. GENERAL APPEARANCE: The patient is alert, oriented, in no acute distress. HEENT: Eyes, normal conjunctivae. Moist oral mucosa. Anicteric. No JVD. RESPIRATORY: Bilateral air entry. No rales. No wheezes. Symmetric expansion. CARDIOVASCULAR: The patient has tachycardia with a regular rhythm. No murmurs. No gallop. The patient has bilateral leg edema 4+. ABDOMEN: Soft. Normal bowel sounds. MUSCULOSKELETAL: Baseline range of motion and strength. SKIN: Warm and intact. No pallor. No rash. No redness. Capillary refill seems to be intact. NEUROLOGIC: No evidence of any new focal weakness. Cranial nerves seem to be intact. PSYCHIATRIC: The patient is in good mood. No anxiety. Optimal judgment. DIAGNOSTIC DATA: EKG was reviewed. The patient has atrial fibrillation with rapid ventricular response at the rate of [address] and T-wave changes. Chest, thorax CT angio was done. The patient has no evidence of pulmonary thromboembolism. Bilateral pleural effusion with adjacent atelectasis. LABORATORY DATA: Labs were done. The patient has white count of 12.7, hemoglobin 13.4, MCV 89.2, platelet count 308. Coagulation; PT 16.1, INR 1.3, PTT 29.1. Chemistry; sodium 140, potassium 4.7, chloride 98, carbon dioxide 32, anion gap 15, BUN 26, creatinine 0.94, GFR 84, glucose 142. Lactic acid 0.9. Calcium 9.9, magnesium 1.8. LFTs were negative. Beta natriuretic peptide 131. ASSESSMENT AND PLAN: The patient will be placed in the hospital with following medical problems; 1. Atrial fibrillation with rapid ventricular response. The patient is on Cardizem drip. We will place the patient on telemetry. We will consult Cardiology. Dr. García follows this patient as outpatient. We will reconcile home medications once updated. 2. Morbidly obese. The patient advised to lose weight. 3. History of coronary artery disease. Reconcile home medications. This is chronic, seems to be stable. 4. Possible underlying congestive heart failure. The previous echo did not show any diastolic dysfunction or low ejection fraction. We will diurese, this patient is in fluid overload and we will follow with Dr. García's recommendations. 5. History of gastroesophageal reflux disease. Reconcile home medications. 6. Deep venous thrombosis prophylaxis. Job ID: [id number] MTDD
[2019-02-11 23:41] VITALS: BMI 44.0
[2019-02-11 23:50] LABS: Amphetamine Not Detected (NotDetected); Barbiturates Screen Not Detected (NotDetected); Benzodiazepine Screen Not Detected (NotDetected); Cocaine Metabolite Screen Not Detected (NotDetected); Medtox Control Line Valid? VALID (VALID); Medtox Reader # READER 4; Methadone Not Detected (NotDetected); Methamphetamine Not Detected (NotDetected); Opiate Screen Not Detected (NotDetected); Oxycodone Screen Not Detected (NotDetected); Phencyclidine (PCP) Not Detected (NotDetected); THC/Cannabinoid Screen Not Detected (NotDetected); Tricyclic Screen Not Detected (NotDetected)
[2019-02-12 02:03] LABS: #Basophils 0.1 thou/uL (0.0-0.2); #Eosinphils 0.2 thou/uL (0.0-0.7); #Lymphocytes 2.3 thou/uL (1.20-3.40); #Monocytes 1.9 thou/uL (0.11-0.59); #Neutrophils 11.5 thou/uL (1.40-6.50); %Basophils 0.4 % (0.0-1.0); %Eosinophils 1.4 % (0.0-10.0); %Lymphocytes 14.4 % (21.0-51.0); %Monocytes 11.7 % (0.0-10.0); %Neutrophils 72.1 % (42.0-75.0); Hemoglobin 13.6 g/dL (14.0-18.0); Mean Corpuscular HGB CONC 29.4 g/dL (32.0-36.0); Mean Corpuscular Hemoglobin 27.1 pg (27.0-31.0); Mean Corpuscular Volume 92.2 fL (78.0-98.0); Mean Platelet Volume 7.7 fL (7.4-10.4); Platelet Count 292 thou/uL (130-400); RBC Distribution Width 17.6 % (11.5-14.5); Red Blood Cell (RBC) Count 5.03 mill/uL (4.70-6.10)
[2019-02-12 02:47] LABS: Anion Gap 13 mmol/L (10-20); BUN (Urea Nitrogen) 26 mg/dL (8.4-25.7); Calc. Creatinine Clearance 173 mL/min (70-130); Calcium 8.9 mg/dL (7.8-10.44); Carbon Dioxide 33 mmol/L (22-29); Chloride 98 mmol/L (98-107); Estimated GFR-MDRD 75; Glucose 105 mg/dL (70-105); Sodium 139 mmol/L (136-145)
[2019-02-12] MEDS: Furosemide 40 MG/4 ML VIAL SLOW IVP SCH ×2 (05:46→14:19)
[2019-02-12] MEDS ORDERED: Enoxaparin Sodium 40 MG/0.4 ML SYRINGE SC SCH (09:00)
[2019-02-12] MEDS ORDERED: Enoxaparin Sodium 30 MG/0.3 ML SYRINGE SC SCH (13:00)
[2019-02-12] MEDS ORDERED: Enoxaparin Sodium 120 MG/0.8 ML SYRINGE SC SCH (13:00)
--- NOTE | 2019-02-12 15:13 | PDOC.HOSPP ---
- Subjective Encounter Date: 02/12/19 Encounter Time: 15:15 Subjective: f/u for chronic A-fib RVR on Cardizem gtt. Still with dyspnea but improved overall since admit. - Objective Vital Signs & Weight: Vital Signs (12 hours) Temp Pulse Resp BP Pulse Ox 02/12/19 11:54 97.3 F L 103 H 20 113/68 94 L 02/12/19 07:22 98.3 F 107 H 24 H 141/71 H 94 L 02/12/19 03:29 97.8 F 84 16 142/72 H 96 Weight Weight 324 lb 11.2 oz I&O: 02/11/19 02/12/19 02/13/19 06:59 06:59 06:59 Intake Total 480 Output Total 600 Balance -120 Result Diagrams: 02/12/19 01:46 02/12/19 01:46 Additional Labs: Laboratory Tests 02/11/19 15:30 WBC 12.7 H Radiology Reviewed by me: Yes (CTA chest - no PE, bilat pleural effusions) EKG Reviewed by me: Yes (Tele - A-fib in low 100's) Hospitalist ROS - Medication Medications: Active Medications Generic Name Dose Route Start Last Admin Trade Name Freq PRN Reason Stop Dose Admin Furosemide 40 mg 02/12/19 06:00 02/12/19 14:19 Lasix SLOW IVP 40 mg 0600,1400 LATRICE Administration Sodium Chloride 10 ml 02/12/19 09:00 02/12/19 08:25 Flush - Normal Saline IVF Not Given Q12HR LATRICE - Exam General Appearance: NAD, awake alert Eye: PERRL, anicteric sclera ENT: normocephalic atraumatic, no oropharyngeal lesions Neck: supple, symmetric, no JVD, no thyromegaly Heart: no murmur, no gallops, no rubs, normal peripheral pulses, irregular Respiratory - other findings: diminished in bases, occasional wheeze Gastrointestinal: soft, non-tender, non-distended, normal bowel sounds Gastrointestinal - other findings: obese Extremities: no cyanosis, 1+ LE edema Skin: normal turgor, no lesions Neurological: cranial nerve grossly intact, no focal deficits, no new deficit Musculoskeletal: normal tone, normal strength Psychiatric: normal affect, A&O x 3 Hosp A/P (1) Chronic atrial fibrillation with RVR Code(s): I48.2 - CHRONIC ATRIAL FIBRILLATION Status: Chronic Plan: Continue Cardizem gtt, Add Digoxin 0.25mg IV x 1 dose now, Lovenox 150mg sc BID , consult Cardiology (2) CHF (congestive heart failure) Code(s): I50.9 - HEART FAILURE, UNSPECIFIED Status: Acute Qualifiers: Heart failure type: diastolic Plan: Likely exacerbated due to #1, continue Lasix 40mg IV BID, last Echo with EF 50- 55% (3) Hypertension Code(s): I10 - ESSENTIAL (PRIMARY) HYPERTENSION Status: Chronic Qualifiers: Hypertension type: essential hypertension Qualified Code(s): I10 - Essential (primary) hypertension Plan: Resume home BP regimen, serial monitoring (4) Obesity (BMI 35.0-39.9 without comorbidity) Code(s): E66.9 - OBESITY, UNSPECIFIED Status: Chronic Plan: Weight loss resources - Plan adoption social worker, respiratory therapy, incentive spirometry, DVT proph w/SCDs Continue supportive mgmt Start Digoxin 0.25mg IVP Continue Cardizem gtt 5mg/h Start Lovenox 150mg sc BID Start Protonix 40mg daily Consult Cardiology AM lab: BMP, CBC
[2019-02-12] MEDS ORDERED: Digoxin 0.5 MG/2 ML AMP SLOW IVP SCH (15:15)
[2019-02-12] MEDS ORDERED: Flecainide 50 MG TAB PO SCH (16:30)
[2019-02-12] MEDS: Mometasone/Formoterol 120 PUFF INHALER INH SCH (18:49)
[2019-02-12] MEDS: Enoxaparin Sodium 30 MG/0.3 ML SYRINGE SC SCH (20:26)
[2019-02-12] MEDS: Enoxaparin Sodium 120 MG/0.8 ML SYRINGE SC SCH (20:26)
--- NOTE | 2019-02-12 22:52 | CON ---
DATE OF CONSULTATION: 02/12/2019 INDICATIONS FOR CONSULTATION: A 53-year-old with atrial fibrillation and rapid ventricular response. HISTORY OF PRESENT ILLNESS: This very unfortunate 53-year-old morbidly obese gentleman was earlier in the hospital this year approximately 3 or 4 months ago at which time he had atrial fibrillation and rapid ventricular response. He did convert back to sinus rhythm after being started on diltiazem and flecainide. Unfortunately, when he was discharged home, it appears that he was not continuing to take the flecainide, it is unclear and he is uncertain about the medications. On December 08, he was seen in the office by Dr. García and was still in sinus rhythm at that time. His echocardiogram showed a normal left ventricular systolic function. He had not had any further palpitations since leaving the hospital back in November. At this time, he presented again after complaining of shortness of breath for the last several days. He was unaware that the heart rate was beating fast. He presented to the emergency room, was found to have atrial fibrillation with rapid ventricular response. He was again admitted to the hospital and was placed on IV diltiazem. He still remains in atrial fibrillation, but does not appear to be very short of breath at this time. He does not have any indication that there has been a myocardial infarction. PAST MEDICAL HISTORY: Significant for atrial fibrillation, rapid ventricular response. He has had a peptic ulcer disease with bleeding ulceration. He has had H pylori, most likely the cause of the ulcer. He has history of hypertension. The anemia, which is resolved. Acute diastolic heart failure, which also apparently had been resolved. He also has diverticulitis. At times, he has diverticulosis. PAST SURGICAL HISTORY: He has had no significant past surgical history. FAMILY HISTORY: Both of his parents are . His father was diagnosed with heart disease. SOCIAL HISTORY: He smoked in the past, but has not smoked since his last admission several months ago. Alcohol is none and has no significant caffeine use. ALLERGIES: NONE. MEDICATIONS: 1. Apparently prior to admission included: Vitamin C. 2. Iron tablets. 3. He was on Cartia XT 200 mg once daily. 4. He was taking pantoprazole. 5. He recently was started on lisinopril 5 mg once daily. 6. I do not see that he was taking any aspirin. He was advised to take aspirin when he was discharged from the hospital since his CHADS-VASC score was only 1. REVIEW OF SYSTEMS: Unremarkable, he does complain of some shortness of breath, it may have just started when he developed the atrial fibrillation again, most likely 2 or 3 days ago. Also, he has morbid obesity. He denied any other GI complaints, complaints musculoskeletal complaints except he did have some lower extremity edema, also which started several days ago, most likely associated with the atrial fibrillation. No history of seizures or syncope. PHYSICAL EXAMINATION: GENERAL: Reveals a morbidly obese gentleman who is in no acute distress at this time. He is alert, he is oriented. VITAL SIGNS: Show blood pressure of 113/68, heart rate is anywhere between 80s to 103 with atrial fibrillation. He is afebrile. Respiratory rate is 20, O2 saturation is 94%. HEENT: Shows the head to be normocephalic and atraumatic. NECK: Carotid pulses are present and did not have any bruits. There is no obvious JVD. CHEST: Actually clear to auscultation at this time. I do not hear any rales, rhonchi, or wheezing. CARDIOVASCULAR: Reveals an irregular rhythm. I do not hear any significant murmurs. However, he is a morbidly obese patient, making heart sounds somewhat distant and difficult to auscultate. ABDOMEN: Shows morbid obesity. I cannot palpate any tenderness or masses. EXTREMITIES: Showed 1+ lower extremity edema from the knees down to the feet including the ankle areas. The pedal pulses are present. NEUROLOGIC: The patient appears to be intact. SKIN: Warm and dry. [place]ORAT[place]: [place] [address], hemoglobin was 13.6, hematocrit 46.3, and platelet count was 292,000. His sodium was 139, potassium was 5.0, BUN is 26 with a creatinine of 1.04 and blood sugar was 105. He did not have any evidence of illicit drug use, which he has had in the past. He had some problems with amphetamines. His drug screen is negative. IMAGING: He had a CT angiogram of the thorax, which showed no evidence of pulmonary embolus. He did have small bilateral pleural effusions with some mild atelectasis and a chest x-ray was performed with the CTA. It did not show any acute changes. In the emergency room, he was given IV diltiazem and the rate is under good control at this time. IMPRESSION: 1. Paroxysmal atrial fibrillation in a gentleman who had previously been on flecainide at some point in time and had converted back to sinus rhythm and had maintained sinus rhythm for a while. I am uncertain as to when and why the flecainide was discontinued, but we will reinstate this medication at 50 mg twice a day and see whether or not he tolerates this and whether or not he may convert to sinus rhythm and may need to increase the dose. Otherwise, we will continue to do that. We will also continue his diltiazem. 2. History of morbid obesity. He will be advised to at least try some type of diet control and lose some weight. He has continued to gain weight since he has stopped smoking and weighs over 300 pounds. 3. History of gastrointestinal bleeding. There has been no obvious bleeding at this time and hemoglobin is somewhat actually elevated. There is no indication of anemia. 4. He did have a history of diastolic heart failure in the past and we will continue to follow the patient. He does not appear to be in failure at this time. He did have a normal left ventricular systolic function by MUGA scan. 5. History of substance abuse in the past and the drug screen is negative at this time and he assures that he is no longer smoking or using illicit drugs. We will be more than happy to continue to follow the patient with you, but I will resume his diltiazem and would agree with the subcutaneous Lovenox at this time, despite the patient only having a CHADS score of 1, may discharge the patient home on oral anticoagulation until we can assure that he is maintaining sinus rhythm. Job ID: [id number]
[2019-02-13] MEDS: Zolpidem Tartrate 5 MG TAB PO PRN (00:15)
[2019-02-13 04:34] LABS: Hypochromia SLIGHT = 6-15 cells (100X) (0-5/hpf); Lymphocytes 5 % (21-51); MDiff Complete? YES; Mean Corpuscular HGB CONC 28.7 g/dL (32.0-36.0); Mean Corpuscular Volume 94.1 fL (78.0-98.0); Monocytes 8 % (0-10); Neutrophil 87 % (42-75); Platelet Count 259 thou/uL (130-400); Platelet Morphology Comment Appears Adequate; RBC Distribution Width 17.3 % (11.5-14.5); Red Blood Cell (RBC) Count 4.82 mill/uL (4.70-6.10); White Blood Cell (WBC) Count 11.7 thou/uL (4.8-10.8)
[2019-02-13 04:47] LABS: Anion Gap 11 mmol/L (10-20); BUN (Urea Nitrogen) 19 mg/dL (8.4-25.7); Calc. Creatinine Clearance 214 mL/min (70-130); Calcium 8.7 mg/dL (7.8-10.44); Carbon Dioxide 37 mmol/L (22-29); Chloride 95 mmol/L (98-107); Estimated GFR-MDRD Greater than 90; Glucose 91 mg/dL (70-105); Potassium 4.6 mmol/L (3.5-5.1); Sodium 138 mmol/L (136-145)
[2019-02-13] MEDS: Furosemide 40 MG/4 ML VIAL SLOW IVP SCH ×2 (06:24→14:41)
[2019-02-13] MEDS: Mometasone/Formoterol 120 PUFF INHALER INH SCH ×2 (07:45→19:09)
[2019-02-13] MEDS ORDERED: Cepastat Lozenges 1 LOZ PO PRN (07:47)
[2019-02-13] MEDS ORDERED: Diabetic Tussin 200 MG/10 ML UDCUP PO PRN (07:47)
[2019-02-13] MEDS ORDERED: Senokot S 8.6-50 MG TAB PO PRN (07:47)
[2019-02-13] MEDS ORDERED: Artificial Tears 18 DROP/0.9 ML EA EYE PRN (07:47)
[2019-02-13] MEDS ORDERED: Bisacodyl 10 MG SUPP PR PRN (07:47)
[2019-02-13] MEDS ORDERED: Metoclopramide HCl 10 MG/2 ML VIAL IVP PRN (07:47)
[2019-02-13] MEDS ORDERED: Calcium Carbonate 500 MG ChewTAB PO PRN (07:47)
[2019-02-13] MEDS ORDERED: HYDROcodone/Acetaminophen 5/325 mg Tablet PO PRN (07:47)
[2019-02-13] MEDS ORDERED: Sodium Chloride 0.65% Nasal 44 ML BOT EA NARE PRN (07:47)
[2019-02-13] MEDS ORDERED: Loperamide HCl 2 MG CAP PO PRN (07:47)
[2019-02-13] MEDS ORDERED: Acetaminophen 325 MG TAB PO PRN (07:47)
[2019-02-13] MEDS ORDERED: hydrALAZINE 20 MG/ML VIAL SLOW IVP PRN (07:47)
[2019-02-13] MEDS: Enoxaparin Sodium 30 MG/0.3 ML SYRINGE SC SCH ×2 (09:01→22:59)
[2019-02-13] MEDS: Lisinopril 5 MG TAB PO SCH (09:01)
[2019-02-13] MEDS: Enoxaparin Sodium 120 MG/0.8 ML SYRINGE SC SCH ×2 (09:01→23:00)
[2019-02-13] MEDS: Ferrous Sulfate 325 MG TAB PO SCH (09:01)
[2019-02-13] MEDS: Flecainide 50 MG TAB PO SCH ×2 (09:02→23:00)
--- NOTE | 2019-02-13 10:42 | PDOC.HOSPP ---
- Subjective Encounter Date: 02/13/19 Encounter Time: 07:40 Subjective: pt still has afib with RVR, his IV pulled out so he was not getting drip this morning, Patient seen and examined. No new complaints. No overnight events - Objective Vital Signs & Weight: Vital Signs (12 hours) Temp Pulse Resp BP Pulse Ox 02/13/19 07:45 117 H 20 02/13/19 07:38 93 L 02/13/19 07:34 117 H 20 02/13/19 07:30 97.4 F L 123 H 22 H 124/60 92 L 02/13/19 03:53 97.3 F L 102 H 18 170/93 H 92 L 02/13/19 00:00 96 18 115/58 L 92 L Weight Weight 320 lb 3.2 oz I&O: 02/12/19 02/13/19 02/14/19 06:59 06:59 06:59 Intake Total 480 1460 Output Total 600 2625 Balance -120 -1165 Result Diagrams: 02/13/19 03:57 02/13/19 03:57 EKG Reviewed by me: Yes (afib with RVR) Hospitalist ROS - Review of Systems Constitutional: denies: fever, chills, sweats, weakness, malaise, other ENT: denies: ear pain, ear discharge, nose pain, nose discharge, nose congestion , mouth pain, mouth swelling, throat pain, throat swelling, other Respiratory: denies: cough, dry, shortness of breath, hemoptysis, SOB with excertion, pleuritic pain, sputum, wheezing, other Cardiovascular: denies: chest pain, palpitations, orthopnea, paroxysmal noc. dyspnea, edema, light headedness, other Gastrointestinal: denies: nausea, vomiting, abdominal pain, diarrhea, constipation, melena, hematochezia, other Genitourinary: denies: dysuria, frequency, incontinence, hematuria, retention, other Musculoskeletal: denies: neck pain, shoulder pain, arm pain, back pain, hand pain, leg pain, foot pain, other Skin: denies: rash, lesions, mayra, bruising, other - Medication Medications: Active Medications Generic Name Dose Route Start Last Admin Trade Name Freq PRN Reason Stop Dose Admin Albuterol/Ipratropium 3 ml 02/12/19 19:00 02/13/19 07:34 Duoneb NEB 3 ml [id number] LATRICE Administration Enoxaparin Sodium 30 mg 02/12/19 21:00 02/13/19 09:01 Lovenox SC 30 mg 899,2099 LATRICE Administration Enoxaparin Sodium 120 mg 02/12/19 21:00 02/13/19 09:01 Lovenox SC 120 mg 899,2099 LATRICE Administration Ferrous Sulfate 325 mg 02/13/19 09:00 02/13/19 09:01 Feosol PO 325 mg DAILY LATRICE Administration Flecainide Acetate 50 mg 02/13/19 09:00 02/13/19 09:02 Tambocor PO 50 mg Q12HR LATRICE Administration Furosemide 40 mg 02/12/19 06:00 02/13/19 06:24 Lasix SLOW IVP 40 mg 0600,1400 LATRICE Administration Diltiazem HCl 125 mg/ Sodium 125 mls @ 5 mls/hr 02/11/19 21:30 02/12/19 20:24 Chloride IVPB 125 mls INF LATRICE Administration Protocol 5 MG/HR Lisinopril 5 mg 02/13/19 09:00 02/13/19 09:01 Zestril PO 5 mg DAILY LATRICE Administration Mometasone Furoate/Formoterol Fumar 2 puff 02/12/19 18:30 02/13/19 07:45 Dulera 200 Mcg/5 Mcg Inhaler INH 2 puff BID-RT LATRICE Administration Pantoprazole Sodium 40 mg 02/13/19 09:00 02/13/19 09:02 Protonix PO 40 mg DAILY LATRICE Administration Sodium Chloride 10 ml 02/12/19 09:00 02/13/19 09:02 Flush - Normal Saline IVF Not Given Q12HR LATRICE - Exam General Appearance: NAD, awake alert Eye: PERRL, anicteric sclera ENT: normocephalic atraumatic, no oropharyngeal lesions Neck: supple, symmetric, no JVD, no thyromegaly, no lymphadenopathy Heart: no murmur, no gallops, irregular Respiratory: CTAB, no wheezes, no rales, no ronchi Gastrointestinal: soft, non-distended, normal bowel sounds, no palpable masses Gastrointestinal - other findings: morbid obesity limiting exam Extremities: no cyanosis, no clubbing, 2+ LE edema Skin: normal turgor, no lesions Neurological: cranial nerve grossly intact, normal sensation to touch, no focal deficits Musculoskeletal: normal tone, normal strength Psychiatric: normal affect, normal behavior, A&O x 3 Hosp A/P (1) Atrial fibrillation with RVR Code(s): I48.91 - UNSPECIFIED ATRIAL FIBRILLATION Status: Acute (2) Chronic stage c diastolic heart failure Code(s): I50.32 - CHRONIC DIASTOLIC (CONGESTIVE) HEART FAILURE Status: Chronic (3) Morbid obesity with BMI of 40.0-44.9, adult Code(s): E66.01 - MORBID (SEVERE) OBESITY DUE TO EXCESS CALORIES; Z68.41 - BODY MASS INDEX (BMI) 40.0-44.9, ADULT Status: Chronic (4) Cannabis abuse Code(s): F12.10 - CANNABIS ABUSE, UNCOMPLICATED Status: Chronic (5) Hypertension Code(s): I10 - ESSENTIAL (PRIMARY) HYPERTENSION Status: Chronic Qualifiers: Hypertension type: essential hypertension Qualified Code(s): I10 - Essential (primary) hypertension (6) Tobacco abuse Code(s): Z72.0 - TOBACCO USE Status: Chronic - Plan old records reviewed/req 02/13/19- continue cardizem drip for rate control, continue flacainide, continue lovenox for anticoagulation, continue IV lasix , cardiology following
--- NOTE | 2019-02-13 11:33 | PDOC.CPN ---
- Subjective Date: 02/13/19 Time: 11:39 Interval history: The pt seen and examined. No overnight events. No cardiac complaints. - Objective Allergies/Adverse Reactions: Allergies Allergy/AdvReac Type Severity Reaction Status Date / Time No Known Allergies Allergy Verified 02/11/19 23:31 Visit Medications: Current Medications Acetaminophen (Tylenol) 650 mg PO Q4H PRN PRN Reason: Headache/Fever/Mild Pain (1-3) Acetaminophen (Tylenol) 650 mg PO Q6H PRN PRN Reason: Mild Pain (1-3) Hydrocodone Bitart/Acetaminophen ([place] 5/325) 1 tab PO Q4H PRN PRN Reason: Moderate Pain (4-6) Albuterol/Ipratropium (Duoneb) 3 ml NEB [id number] SCH Last Admin: 02/13/19 07:34 Dose: 3 ml Artificial Tears (Tears Naturale) 2 drop EA EYE PRN PRN PRN Reason: Dry Eyes Bisacodyl (Dulcolax) 10 mg [place] DAILYPRN PRN PRN Reason: Constipation Calcium Carbonate (Tums) 1,000 mg PO Q4H PRN PRN Reason: Heartburn or Indigestion Enoxaparin Sodium (Lovenox) 30 mg SC 0900,2100 [facility] Last Admin: 02/13/19 09:01 Dose: 30 mg Enoxaparin Sodium (Lovenox) 120 mg SC 0900,2100 [facility] Last Admin: 02/13/19 09:01 Dose: 120 mg Ferrous Sulfate (Feosol) 325 mg PO DAILY [facility] Last Admin: 02/13/19 09:01 Dose: 325 mg Flecainide Acetate (Tambocor) 50 mg PO Q12HR [facility] Last Admin: 02/13/19 09:02 Dose: 50 mg Furosemide (Lasix) 40 mg SLOW IVP 0600,1400 [facility] Last Admin: 02/13/19 06:24 Dose: 40 mg Guaifenesin (Robitussin Sf) 200 mg PO Q4H PRN PRN Reason: Cough Hydralazine HCl (Apresoline) 10 mg SLOW IVP Q4H PRN PRN Reason: SBP > 180 and HR < 70 Diltiazem HCl 125 mg/ Sodium (Chloride) 125 mls @ 7.5 mls/hr IVPB INF [facility]; Protocol Lisinopril (Zestril) 5 mg PO DAILY [facility] Last Admin: 02/13/19 09:01 Dose: 5 mg Loperamide HCl (Imodium) 2 mg PO PRN PRN PRN Reason: Diarrhea/Loose Stools Loratadine (Claritin) 10 mg PO DAILYPRN PRN PRN Reason: Sinus Symptoms Metoclopramide HCl (Reglan) 5 mg IVP Q4H PRN PRN Reason: Nausea Mometasone Furoate/Formoterol Fumar (Dulera 200 Mcg/5 Mcg Inhaler) 2 puff INH BID-RT [facility] Last Admin: 02/13/19 07:45 Dose: 2 puff Pantoprazole Sodium (Protonix) 40 mg PO DAILY [facility] Last Admin: 02/13/19 09:02 Dose: 40 mg Senna/Docusate Sodium (Senokot S) 2 tab PO BIDPRN PRN PRN Reason: Constipation Sodium Chloride (Flush - Normal Saline) 10 ml IVF Q12HR [facility] Last Admin: 02/13/19 09:02 Dose: Not Given Sodium Chloride (Flush - Normal Saline) 10 ml IVF PRN PRN PRN Reason: Saline Flush Sodium Chloride ([place] Nasal [place] 0.65%) 0 ml EA NARE QIDPRN PRN PRN Reason: Nasal Congestion Throat Lozenges (Cepastat Lozenges) 1 jaclyn PO Q2H PRN PRN Reason: Sore Throat Zolpidem Tartrate (Ambien) 5 mg PO HSPRN PRN PRN Reason: Insomnia Vital Signs & Weight: Vital Signs Temp Pulse Resp BP Pulse Ox 02/13/19 07:45 117 H 20 02/13/19 07:38 93 L 02/13/19 07:34 117 H 20 02/13/19 07:30 97.4 F L 123 H 22 H 124/60 92 L 02/13/19 03:53 97.3 F L 102 H 18 170/93 H 92 L 02/13/19 00:00 96 18 115/58 L 92 L Weight 320 lb 3.2 oz - Physical Exam General: alert & oriented x3 HEENT: mucus membranes moist Neck: supple neck Cardiac: irregularly regular, tachycardia Lungs: decreased breath sounds Musculoskeletal: normal range of motion - Labs Result Diagrams: 02/13/19 03:57 02/13/19 03:57 Troponin/CKMB Troponin I Less than 0.010 ng/mL (< 0.028) 02/12/19 01:46 - Telemetry Supraventricular conduction: atrial fibrillation (HR 100-120s) - Assessment/Plan Assessment/Plan: 1. Afib with RVR - Will increase Diltiazem from 5mg to 7.5mg/hr; On Flecanide 50mg BID from yesterday PM; Not on Bblocker due to possible COPD; on Lovenox BID for stroke prophylaxis. [id number] score 2 (CHF and HTN) 2. Acute on Chronic Diastolic HF - his resp improving with Lasix IV BID; On Lisinopril 5mg qd; Not on Bblocker due to possible COPD 3. HTN - stable 4. Tobacco abuse - The pt stated he quit smoking since last admission; encourage to cont smoking cessation 5. Cannabis abuse - The pt stated he quit smoking since last admission; encourage to cont cessation MAR reviewed * Dr García's pt. Pt. seen and eval. by me. I agree with the A/P. He remains in fib/flutter. May need ablation. chest clear. Irreg/irreg. gjm
[2019-02-13] MEDS ORDERED: Diltiazem 125 MG in Sodium Chloride 0.9% 100 ML IVPB SCH (11:45)
--- NOTE | 2019-02-13 12:32 | EKG ---
Test Reason : ER INDICATION Blood Pressure : / mmHG Vent. Rate : 110 BPM Atrial Rate : 108 BPM P-R Int : 000 ms QRS Dur : 088 ms QT Int : 342 ms P-R-T Axes : 000 058 100 degrees QTc Int : 462 ms Atrial fibrillation with rapid ventricular response Nonspecific ST and T wave abnormality Abnormal ECG Confirmed by YFN KENYON DO ([id number]), editor index TATIANNA LIMA ([id number]) on 02/13/2019 12:32:12 PM Referred By: Confirmed By:YFN KENYON DO
[2019-02-14] MEDS: Furosemide 40 MG/4 ML VIAL SLOW IVP SCH ×2 (07:49→14:47)
[2019-02-14] MEDS: Mometasone/Formoterol 120 PUFF INHALER INH SCH ×2 (08:10→18:52)
[2019-02-14] MEDS: Loratadine 10 MG TAB PO PRN (09:06)
[2019-02-14] MEDS: Ferrous Sulfate 325 MG TAB PO SCH (09:06)
[2019-02-14] MEDS: Enoxaparin Sodium 120 MG/0.8 ML SYRINGE SC SCH ×2 (09:06→20:17)
[2019-02-14] MEDS: Flecainide 50 MG TAB PO SCH ×2 (09:06→20:16)
[2019-02-14] MEDS: Lisinopril 5 MG TAB PO SCH (09:06)
[2019-02-14] MEDS: Enoxaparin Sodium 30 MG/0.3 ML SYRINGE SC SCH ×2 (09:08→20:16)
--- NOTE | 2019-02-14 09:55 | PDOC.HOSPP ---
- Subjective Encounter Date: 02/14/19 Encounter Time: 07:50 Subjective: Patient seen and examined. No new complaints. No overnight events - Objective Vital Signs & Weight: Vital Signs (12 hours) Temp Pulse Resp BP Pulse Ox 02/14/19 09:06 114 H 02/14/19 08:10 114 H 24 H 02/14/19 07:59 114 H 24 H 92 L 02/14/19 07:45 98.1 F 18 136/67 95 02/14/19 04:00 101 H 22 H 94/50 L 92 L 02/14/19 00:00 107 H 18 121/66 90 L Weight Weight 318 lb 3.2 oz I&O: 02/13/19 02/14/19 02/15/19 06:59 06:59 06:59 Intake Total 1960 1650 167 Output Total 3479 2808 625 Balance -1515 -1150 -458 Result Diagrams: 02/13/19 03:57 02/13/19 03:57 EKG Reviewed by me: Yes (afib/flutter) Hospitalist ROS - Review of Systems ENT: denies: ear pain, ear discharge, nose pain, nose discharge, nose congestion , mouth pain, mouth swelling, throat pain, throat swelling, other Respiratory: denies: cough, dry, shortness of breath, hemoptysis, SOB with excertion, pleuritic pain, sputum, wheezing, other Cardiovascular: denies: chest pain, palpitations, orthopnea, paroxysmal noc. dyspnea, edema, light headedness, other Gastrointestinal: denies: nausea, vomiting, abdominal pain, diarrhea, constipation, melena, hematochezia, other Genitourinary: denies: dysuria, frequency, incontinence, hematuria, retention, other Musculoskeletal: denies: neck pain, shoulder pain, arm pain, back pain, hand pain, leg pain, foot pain, other Skin: denies: rash, lesions, mayra, bruising, other - Medication Medications: Active Medications Generic Name Dose Route Start Last Admin Trade Name Freq PRN Reason Stop Dose Admin Albuterol/Ipratropium 3 ml 02/12/19 19:00 02/14/19 07:59 Duoneb NEB 3 ml [id number] LATRICE Administration Enoxaparin Sodium 30 mg 02/12/19 21:00 02/14/19 09:08 Lovenox SC 30 mg 899,2099 LATRICE Administration Enoxaparin Sodium 120 mg 02/12/19 21:00 02/14/19 09:06 Lovenox SC 120 mg 899,2099 LATRICE Administration Ferrous Sulfate 325 mg 02/13/19 09:00 02/14/19 09:06 Feosol PO 325 mg DAILY LATRICE Administration Flecainide Acetate 50 mg 02/13/19 09:00 02/14/19 09:06 Tambocor PO 50 mg Q12HR LATRICE Administration Furosemide 40 mg 02/12/19 06:00 02/14/19 07:49 Lasix SLOW IVP 40 mg 0600,1400 LATRICE Administration Diltiazem HCl 125 mg/ Sodium 125 mls @ 10 mls/hr 02/13/19 11:45 02/14/19 05: 55 Chloride IVPB 125 mls INF LATRICE Administration Protocol Lisinopril 5 mg 02/13/19 09:00 02/14/19 09:06 Zestril PO 5 mg DAILY LATRICE Administration Loratadine 10 mg 02/13/19 07:47 02/14/19 09:06 Claritin PO 10 mg DAILYPRN PRN Administration Sinus Symptoms Mometasone Furoate/Formoterol Fumar 2 puff 02/12/19 18:30 02/14/19 08:10 Dulera 200 Mcg/5 Mcg Inhaler INH 2 puff BID-RT LATRICE Administration Pantoprazole Sodium 40 mg 02/13/19 09:00 02/14/19 09:10 Protonix PO 40 mg DAILY LATRICE Administration Sodium Chloride 10 ml 02/12/19 09:00 02/14/19 09:09 Flush - Normal Saline IVF 10 ml Q12HR LATRICE Administration Zolpidem Tartrate 5 mg 02/13/19 07:47 02/13/19 00:15 Ambien PO 5 mg HSPRN PRN Administration Insomnia - Exam General Appearance: NAD, awake alert Eye: PERRL, anicteric sclera ENT: normocephalic atraumatic, no oropharyngeal lesions Neck: supple, symmetric, no JVD, no thyromegaly Heart: no murmur, no gallops, no rubs, normal peripheral pulses, irregular Respiratory: CTAB, no wheezes, no rales, no ronchi Gastrointestinal: soft, non-tender, non-distended, normal bowel sounds, no palpable masses, no hepatomegaly, no splenomegaly Extremities: no clubbing, 2+ LE edema Skin: normal turgor, no lesions Neurological: cranial nerve grossly intact, normal sensation to touch, no weakness, no focal deficits Musculoskeletal: normal tone, normal strength, no muscle wasting Psychiatric: normal affect, normal behavior, A&O x 3 Hosp A/P (1) Atrial fibrillation with RVR Code(s): I48.91 - UNSPECIFIED ATRIAL FIBRILLATION Status: Acute (2) Chronic stage c diastolic heart failure Code(s): I50.32 - CHRONIC DIASTOLIC (CONGESTIVE) HEART FAILURE Status: Chronic (3) Morbid obesity with BMI of 40.0-44.9, adult Code(s): E66.01 - MORBID (SEVERE) OBESITY DUE TO EXCESS CALORIES; Z68.41 - BODY MASS INDEX (BMI) 40.0-44.9, ADULT Status: Chronic (4) Cannabis abuse Code(s): F12.10 - CANNABIS ABUSE, UNCOMPLICATED Status: Chronic (5) Hypertension Code(s): I10 - ESSENTIAL (PRIMARY) HYPERTENSION Status: Chronic Qualifiers: Hypertension type: essential hypertension Qualified Code(s): I10 - Essential (primary) hypertension (6) Tobacco abuse Code(s): Z72.0 - TOBACCO USE Status: Chronic - Plan old records reviewed/req 02/13/19- continue cardizem drip for rate control, continue flacainide, continue lovenox for anticoagulation, continue IV lasix , cardiology following 02/14- continue cardizem drip at 10, rate now controlled, tomorrow cardiology will decide about possible need for ablation, continue lasix medication reviewed as above, symptomatic treatment. repeat labs tomorrow
--- NOTE | 2019-02-14 16:15 | PDOC.CPN ---
- Subjective Date: 02/14/19 Time: 14:00 Interval history: The pt seen and examined. No overnight events. No cardiac complaints. - Objective Allergies/Adverse Reactions: Allergies Allergy/AdvReac Type Severity Reaction Status Date / Time No Known Allergies Allergy Verified 02/11/19 23:31 Visit Medications: Current Medications Acetaminophen (Tylenol) 650 mg PO Q4H PRN PRN Reason: Headache/Fever/Mild Pain (1-3) Acetaminophen (Tylenol) 650 mg PO Q6H PRN PRN Reason: Mild Pain (1-3) Hydrocodone Bitart/Acetaminophen ([place] 5/325) 1 tab PO Q4H PRN PRN Reason: Moderate Pain (4-6) Albuterol/Ipratropium (Duoneb) 3 ml NEB [id number] SCH Last Admin: 02/14/19 14:48 Dose: 3 ml Artificial Tears (Tears Naturale) 2 drop EA EYE PRN PRN PRN Reason: Dry Eyes Bisacodyl (Dulcolax) 10 mg DC DAILYPRN PRN PRN Reason: Constipation Calcium Carbonate (Tums) 1,000 mg PO Q4H PRN PRN Reason: Heartburn or Indigestion Enoxaparin Sodium (Lovenox) 30 mg SC 0900,2100 [facility] Last Admin: 02/14/19 09:08 Dose: 30 mg Enoxaparin Sodium (Lovenox) 120 mg SC 0900,2100 [facility] Last Admin: 02/14/19 09:06 Dose: 120 mg Ferrous Sulfate (Feosol) 325 mg PO DAILY [facility] Last Admin: 02/14/19 09:06 Dose: 325 mg Flecainide Acetate (Tambocor) 50 mg PO Q12HR [facility] Last Admin: 02/14/19 09:06 Dose: 50 mg Furosemide (Lasix) 40 mg SLOW IVP 0600,1400 [facility] Last Admin: 02/14/19 14:47 Dose: 40 mg Guaifenesin (Robitussin Sf) 200 mg PO Q4H PRN PRN Reason: Cough Hydralazine HCl (Apresoline) 10 mg SLOW IVP Q4H PRN PRN Reason: SBP > 180 and HR < 70 Diltiazem HCl 125 mg/ Sodium (Chloride) 125 mls @ 10 mls/hr IVPB INF [facility]; Protocol Last Admin: 02/14/19 05:55 Dose: 125 mls Lisinopril (Zestril) 5 mg PO DAILY [facility] Last Admin: 02/14/19 09:06 Dose: 5 mg Loperamide HCl (Imodium) 2 mg PO PRN PRN PRN Reason: Diarrhea/Loose Stools Loratadine (Claritin) 10 mg PO DAILYPRN PRN PRN Reason: Sinus Symptoms Last Admin: 02/14/19 09:06 Dose: 10 mg Metoclopramide HCl (Reglan) 5 mg IVP Q4H PRN PRN Reason: Nausea Mometasone Furoate/Formoterol Fumar (Dulera 200 Mcg/5 Mcg Inhaler) 2 puff INH BID-RT [facility] Last Admin: 02/14/19 08:10 Dose: 2 puff Pantoprazole Sodium (Protonix) 40 mg PO DAILY [facility] Last Admin: 02/14/19 09:10 Dose: 40 mg Senna/Docusate Sodium (Senokot S) 2 tab PO BIDPRN PRN PRN Reason: Constipation Sodium Chloride (Flush - Normal Saline) 10 ml IVF Q12HR [facility] Last Admin: 02/14/19 09:09 Dose: 10 ml Sodium Chloride (Flush - Normal Saline) 10 ml IVF PRN PRN PRN Reason: Saline Flush Sodium Chloride ([place] Nasal [place] 0.65%) 0 ml EA NARE QIDPRN PRN PRN Reason: Nasal Congestion Throat Lozenges (Cepastat Lozenges) 1 jaclyn PO Q2H PRN PRN Reason: Sore Throat Zolpidem Tartrate (Ambien) 5 mg PO HSPRN PRN PRN Reason: Insomnia Last Admin: 02/13/19 00:15 Dose: 5 mg Vital Signs & Weight: Vital Signs Temp Pulse Resp BP Pulse Ox 02/14/19 14:48 98 20 02/14/19 11:50 97.8 F 120 H 18 117/66 95 02/14/19 10:40 103 H 16 02/14/19 09:06 114 H 02/14/19 08:10 114 H 24 H 02/14/19 07:59 114 H 24 H 92 L 02/14/19 07:45 98.1 F 18 136/67 93 L Weight 318 lb 3.2 oz - Physical Exam General: alert & oriented x3 Cardiac: irregularly regular Lungs: decreased breath sounds Skin: clear, other (1-2+ pitting edema to LLE) Musculoskeletal: normal range of motion - Labs Result Diagrams: 02/13/19 03:57 02/13/19 03:57 Troponin/CKMB Troponin I Less than 0.010 ng/mL (< 0.028) 02/12/19 01:46 - Telemetry Supraventricular conduction: other (Afib/aflutter with HR 90-120s) - Assessment/Plan Assessment/Plan: 1. Afib/aflutter with RVR - Will increase Diltiazem from 10mg to 12.5mg/hr this PM; On Flecanide 50mg BID since 02/12/2019; Not on Bblocker due to possible COPD ; on Lovenox BID for stroke prophylaxis. [id number] score 2 (CHF and HTN) but non compliant of his tx. May need ablation. 2. Acute on Chronic Diastolic HF - his resp improving with Lasix IV BID; On Lisinopril 5mg qd; Not on Bblocker due to possible COPD 3. HTN - stable 4. Tobacco abuse - The pt stated he quit smoking since last admission; encourage to cont smoking cessation 5. Cannabis abuse - The pt stated he quit smoking since last admission; encourage to cont cessation MAR reviewed * Dr García's pt.
[2019-02-14] MEDS: Diltiazem 125 MG in Sodium Chloride 0.9% 100 ML IVPB SCH (17:34)
[2019-02-14] MEDS: Zolpidem Tartrate 5 MG TAB PO PRN (21:49)
[2019-02-15 05:45] LABS: #Basophils 0.1 thou/uL (0.0-0.2); #Eosinphils 0.3 thou/uL (0.0-0.7); #Lymphocytes 1.4 thou/uL (1.20-3.40); #Neutrophils 7.1 thou/uL (1.40-6.50); %Basophils 0.5 % (0.0-1.0); %Lymphocytes 14.2 % (21.0-51.0); %Monocytes 10.1 % (0.0-10.0); %Neutrophils 72.2 % (42.0-75.0); Hemoglobin 12.9 g/dL (14.0-18.0); Mean Corpuscular HGB CONC 29.3 g/dL (32.0-36.0); Mean Corpuscular Volume 92.4 fL (78.0-98.0); Platelet Count 227 thou/uL (130-400); RBC Distribution Width 16.8 % (11.5-14.5); Red Blood Cell (RBC) Count 4.76 mill/uL (4.70-6.10); White Blood Cell (WBC) Count 9.9 thou/uL (4.8-10.8)
[2019-02-15 05:59] LABS: ALT (SGPT) 16 U/L (8-55); AST (SGOT) 20 U/L (5-34); Albumin 3.4 g/dL (3.5-5.0); Alkaline Phosphatase 79 U/L (40-150); Anion Gap 11 mmol/L (10-20); BUN (Urea Nitrogen) 17 mg/dL (8.4-25.7); Bilirubin, Total 0.6 mg/dL (0.2-1.2); Calc. Creatinine Clearance 218 mL/min (70-130); Calcium 8.7 mg/dL (7.8-10.44); Carbon Dioxide 37 mmol/L (22-29); Chloride 93 mmol/L (98-107); Estimated GFR-MDRD Greater than 90; Globulin 3.6 g/dL (2.4-3.5); Glucose 111 mg/dL (70-105); Magnesium 1.6 mg/dL (1.6-2.6); Potassium 3.7 mmol/L (3.5-5.1); Sodium 137 mmol/L (136-145)
[2019-02-15] MEDS: Diltiazem 125 MG in Sodium Chloride 0.9% 100 ML IVPB SCH (06:02)
[2019-02-15] MEDS: Furosemide 40 MG/4 ML VIAL SLOW IVP SCH ×2 (06:02→14:44)
[2019-02-15] MEDS: Mometasone/Formoterol 120 PUFF INHALER INH SCH ×2 (06:45→18:51)
[2019-02-15] MEDS ORDERED: Magnesium 2 GM/50 ML 2 GM in Premix Bag 1 BAG IVPB SCH (07:15)
[2019-02-15] MEDS: Ferrous Sulfate 325 MG TAB PO SCH (10:06)
[2019-02-15] MEDS: Flecainide 50 MG TAB PO SCH ×2 (10:08→20:04)
[2019-02-15] MEDS: Lisinopril 5 MG TAB PO SCH (10:08)
[2019-02-15] MEDS: Enoxaparin Sodium 30 MG/0.3 ML SYRINGE SC SCH ×2 (10:10→20:04)
[2019-02-15] MEDS: Enoxaparin Sodium 120 MG/0.8 ML SYRINGE SC SCH ×2 (10:11→20:05)
--- NOTE | 2019-02-15 12:31 | PDOC.CPN ---
- Subjective Date: 02/15/19 Time: 12:28 Interval history: No new issues. No chest pain. - Review of Systems General: denies: fever/chills, weight/appetite/sleep changes, night sweats, fatigue Respiratory: denies: cough, congestion, shortness of breath, exercise intolerance Cardiovascular: denies: chest pain, palpitation, edema, paroxysmal nocturnal dyspnea, orthopnea Gastrointestinal: denies: nausea, vomiting, diarrhea, constipation, abd pain, GI bleeding Musculoskeletal: denies: pain, tenderness, stiffness, swelling, arthritis/ arthralgias Neurological: denies: numbness, syncope, seizure, weakness - Objective Allergies/Adverse Reactions: Allergies Allergy/AdvReac Type Severity Reaction Status Date / Time No Known Allergies Allergy Verified 02/11/19 23:31 Visit Medications: Current Medications Acetaminophen (Tylenol) 650 mg PO Q4H PRN PRN Reason: Headache/Fever/Mild Pain (1-3) Acetaminophen (Tylenol) 650 mg PO Q6H PRN PRN Reason: Mild Pain (1-3) Hydrocodone Bitart/Acetaminophen ([place] 5/325) 1 tab PO Q4H PRN PRN Reason: Moderate Pain (4-6) Albuterol/Ipratropium (Duoneb) 3 ml NEB [id number] [facility] Last Admin: 02/15/19 10:47 Dose: 3 ml Artificial Tears (Tears Naturale) 2 drop EA EYE PRN PRN PRN Reason: Dry Eyes Bisacodyl (Dulcolax) 10 mg IN DAILYPRN PRN PRN Reason: Constipation Calcium Carbonate (Tums) 1,000 mg PO Q4H PRN PRN Reason: Heartburn or Indigestion Enoxaparin Sodium (Lovenox) 30 mg SC 00,2099 [facility] Last Admin: 02/15/19 10:10 Dose: 30 mg Enoxaparin Sodium (Lovenox) 120 mg SC 00,2099 [facility] Last Admin: 02/15/19 10:11 Dose: 120 mg Ferrous Sulfate (Feosol) 325 mg PO DAILY [facility] Last Admin: 02/15/19 10:06 Dose: 324 mg Flecainide Acetate (Tambocor) 50 mg PO Q12HR [facility] Last Admin: 02/15/19 10:08 Dose: 50 mg Furosemide (Lasix) 40 mg SLOW IVP 0600,1400 [facility] Last Admin: 02/15/19 06:02 Dose: 40 mg Guaifenesin (Robitussin Sf) 200 mg PO Q4H PRN PRN Reason: Cough Hydralazine HCl (Apresoline) 10 mg SLOW IVP Q4H PRN PRN Reason: SBP > 180 and HR < 70 Diltiazem HCl 125 mg/ Sodium (Chloride) 125 mls @ 12.5 mls/hr IVPB INF [facility]; Protocol Last Admin: 02/15/19 06:02 Dose: 125 mls Lisinopril (Zestril) 5 mg PO DAILY [facility] Last Admin: 02/15/19 10:08 Dose: 5 mg Loperamide HCl (Imodium) 2 mg PO PRN PRN PRN Reason: Diarrhea/Loose Stools Loratadine (Claritin) 10 mg PO DAILYPRN PRN PRN Reason: Sinus Symptoms Last Admin: 02/14/19 09:06 Dose: 10 mg Metoclopramide HCl (Reglan) 5 mg IVP Q4H PRN PRN Reason: Nausea Mometasone Furoate/Formoterol Fumar (Dulera 200 Mcg/5 Mcg Inhaler) 2 puff INH BID-RT [facility] Last Admin: 02/15/19 06:45 Dose: 2 puff Pantoprazole Sodium (Protonix) 40 mg PO DAILY [facility] Last Admin: 02/15/19 10:10 Dose: 40 mg Senna/Docusate Sodium (Senokot S) 2 tab PO BIDPRN PRN PRN Reason: Constipation Sodium Chloride (Flush - Normal Saline) 10 ml IVF Q12HR [facility] Last Admin: 02/15/19 10:18 Dose: Not Given Sodium Chloride (Flush - Normal Saline) 10 ml IVF PRN PRN PRN Reason: Saline Flush Sodium Chloride ([place] Nasal [place] 0.65%) 0 ml EA NARE QIDPRN PRN PRN Reason: Nasal Congestion Throat Lozenges (Cepastat Lozenges) 1 jaclyn PO Q2H PRN PRN Reason: Sore Throat Zolpidem Tartrate (Ambien) 5 mg PO HSPRN PRN PRN Reason: Insomnia Last Admin: 02/14/19 21:49 Dose: 5 mg Vital Signs & Weight: Vital Signs Temp Pulse Resp BP BP Pulse Ox 02/15/19 11:30 98.3 F 106 H 20 141/84 H 96 02/15/19 10:47 95 12 97 02/15/19 10:08 94 122/70 02/15/19 08:02 98.2 F 94 20 122/70 91 L 02/15/19 06:32 94 14 94 L 02/15/19 04:00 113 H 20 116/62 90 L Weight 320 lb - Physical Exam General: alert & oriented x3, no apparent distress HEENT: mucus membranes moist, normocephaly Neck: supple neck, midline trachea Cardiac: no murmur, irregularly regular Lungs: clear to auscultation, no wheeze, rales, rhonchi Neuro: grossly intact, coordination normal Abdomen: active bowel sounds, soft, non-tender Skin: clear Musculoskeletal: normal range of motion, no pain - Labs Result Diagrams: 02/15/19 05:18 02/15/19 05:18 Troponin/CKMB Troponin I Less than 0.010 ng/mL (< 0.028) 02/12/19 01:46 - Telemetry Supraventricular conduction: atrial fibrillation - Assessment/Plan Assessment/Plan: 1. Afib/aflutter with RVR 2. Acute on Chronic Diastolic HF 3. HTN 4. CHADS VASc of 1 for HTN only. PLAN: - He is rate controlled but still in afib. - Will plan STEPHANIE Cardioversion for tomorrow. - We spoke about risks and benefits and he agrees to proceed.
[2019-02-15] MEDS ORDERED: Diltiazem 125 MG in Sodium Chloride 0.9% 100 ML IVPB SCH (12:58)
--- NOTE | 2019-02-15 18:01 | PDOC.HOSPP ---
- Subjective Encounter Date: 02/15/19 Encounter Time: 11:00 Subjective: Patient seen and examined for Afib with RVR/Resp failure. No CP/SOB. No new complaints. No overnight events - Objective Vital Signs & Weight: Vital Signs (12 hours) Temp Pulse Resp BP BP Pulse Ox 02/15/19 15:15 97.6 F 110 H 20 141/78 H 95 02/15/19 14:38 94 20 96 02/15/19 11:30 98.3 F 106 H 20 141/84 H 96 02/15/19 10:47 95 12 97 02/15/19 10:08 94 122/70 02/15/19 08:02 98.2 F 94 20 122/70 91 L 02/15/19 06:32 94 14 94 L Weight Weight 320 lb I&O: 02/14/19 02/15/19 02/16/19 06:59 06:59 06:59 Intake Total 1650 167 650 Output Total 2800 625 1200 Balance -8120 -458 -550 Result Diagrams: 02/15/19 05:18 02/15/19 05:18 Additional Labs: Accuchecks 02/13/19 12:14 POC Glucose 93 EKG Reviewed by me: Yes (Tele Afib) Hospitalist ROS - Review of Systems Cardiovascular: denies: chest pain, palpitations, orthopnea, paroxysmal noc. dyspnea, edema, light headedness, other Gastrointestinal: denies: nausea, vomiting, abdominal pain, diarrhea, constipation, melena, hematochezia, other - Medication Medications: Active Medications Generic Name Dose Route Start Last Admin Trade Name Freq PRN Reason Stop Dose Admin Albuterol/Ipratropium 3 ml 02/12/19 19:00 02/15/19 14:38 Duoneb NEB 3 ml [id number] LATRICE Administration Enoxaparin Sodium 30 mg 02/12/19 21:00 02/15/19 10:10 Lovenox SC 30 mg 899,2099 LAT[facility]ICE Administration Enoxaparin Sodium 120 mg 02/12/19 21:00 02/15/19 10:11 Lovenox SC 120 mg 00,2100 [facility] Administration Ferrous Sulfate 325 mg 02/13/19 09:00 02/15/19 10:06 Feosol PO 324 mg DAILY [facility] Administration Flecainide Acetate 50 mg 02/13/19 09:00 02/15/19 10:08 Tambocor PO 50 mg Q12HR [facility] Administration Furosemide 40 mg 02/12/19 06:00 02/15/19 14:44 Lasix SLOW IVP 40 mg 0600,1400 [facility] Administration Diltiazem HCl 125 mg/ Sodium 125 mls @ 7.5 mls/hr 02/15/19 12:58 02/15/19 16: 32 Chloride IVPB 125 mls INF [facility] Administration Protocol Lisinopril 5 mg 02/13/19 09:00 02/15/19 10:08 Zestril PO 5 mg DAILY [facility] Administration Loratadine 10 mg 02/13/19 07:47 02/14/19 09:06 Claritin PO 10 mg DAILYPRN PRN Administration Sinus Symptoms Mometasone Furoate/Formoterol Fumar 2 puff 02/12/19 18:30 02/15/19 06:45 Dulera 200 Mcg/5 Mcg Inhaler INH 2 puff BID-RT [facility] Administration Pantoprazole Sodium 40 mg 02/13/19 09:00 02/15/19 10:10 Protonix PO 40 mg DAILY [facility] Administration Sodium Chloride 10 ml 02/12/19 09:00 02/15/19 10:18 Flush - Normal Saline IVF Not Given Q12HR LATRICE Zolpidem Tartrate 5 mg 02/13/19 07:47 02/14/19 21:49 Ambien PO 5 mg HSPRN PRN Administration Insomnia - Exam General Appearance: NAD Neck: no JVD Heart: no rubs, irregular Respiratory: CTAB, no wheezes, no rales, no tachypnea Gastrointestinal: soft, non-tender, normal bowel sounds Extremities: 2+ LE edema Neurological: no new deficit Psychiatric: A&O x 3 Hosp A/P - Plan DVT proph w/lovenox IMPRESSION: 1. Atrial fibrillation with rapid ventricular response - on Cardizem drip/ Lovenox 2. Acute hypoxic respiratory failure secondary to acute diastolic HF 3. HTN 4. Hypomagnesemia 5. Morbid Obesity BMI 43.4 6. ?PEARL PLAN: Reduce Cardizem drip to 7.5 mg/hr Replace Magnessium Cont Flecainide Cont IV Lasix AM labs Wean O2 STEPHANIE-CV in AM Patient understands the risk associated with anticoagulation Sleep study as outpt
[2019-02-15] MEDS: Loratadine 10 MG TAB PO PRN (20:04)
[2019-02-16 04:59] LABS: Hemoglobin 12.9 g/dL (14.0-18.0); Platelet Count 195 thou/uL (130-400)
[2019-02-16 05:10] LABS: BUN (Urea Nitrogen) 13 mg/dL (8.4-25.7); Calc. Creatinine Clearance 230 mL/min (70-130); Calcium 8.8 mg/dL (7.8-10.44); Estimated GFR-MDRD Greater than 90; Glucose 83 mg/dL (70-105); Magnesium 1.8 mg/dL (1.6-2.6)
[2019-02-16] MEDS: Furosemide 40 MG/4 ML VIAL SLOW IVP SCH ×2 (05:57→14:28)
[2019-02-16 06:31] LABS: Anion Gap 19 mmol/L (10-20); Carbon Dioxide 34 mmol/L (22-29); Chloride 91 mmol/L (98-107); Potassium 3.4 mmol/L (3.5-5.1); Sodium 141 mmol/L (136-145)
[2019-02-16] MEDS: Mometasone/Formoterol 120 PUFF INHALER INH SCH ×2 (06:35→18:41)
[2019-02-16] MEDS: Ferrous Sulfate 325 MG TAB PO SCH (09:02)
[2019-02-16] MEDS: Lisinopril 5 MG TAB PO SCH (09:03)
[2019-02-16] MEDS: Flecainide 50 MG TAB PO SCH ×2 (09:04→20:37)
[2019-02-16] MEDS: Enoxaparin Sodium 120 MG/0.8 ML SYRINGE SC SCH ×2 (09:04→20:37)
[2019-02-16] MEDS: Enoxaparin Sodium 30 MG/0.3 ML SYRINGE SC SCH ×2 (09:05→20:36)
[2019-02-16] MEDS ORDERED: PROPOFOL 40 ML ONE (10:21)
[2019-02-16] MEDS ORDERED: Hydrocortisone 1% Cream 30 GM TUBE ONE (12:30)
--- NOTE | 2019-02-16 13:21 | PDOC.HOSPP ---
- Subjective Encounter Date: 02/16/19 Encounter Time: 09:15 Subjective: is npo for cardioversion likely has pearl, was seen snoring very loud but I have not witnessed any apneic spells at bedside no chest pain or sob is ambulating in room - Objective Vital Signs & Weight: Vital Signs (12 hours) Temp Pulse Resp BP BP Pulse Ox 02/16/19 09:03 78 162/85 H 02/16/19 08:00 98.6 F 87 18 111/56 L 97 02/16/19 06:23 102 H 12 96 02/16/19 04:00 98.1 F 75 20 113/62 93 L Weight Weight 311 lb 6.4 oz I&O: 02/15/19 02/16/19 02/17/19 06:59 06:59 06:59 Intake Total 167 2445.5 Output Total 625 4750 Balance -458 -2304.5 Result Diagrams: 02/16/19 04:38 02/16/19 04:38 Hospitalist ROS - Medication Medications: Active Medications Generic Name Dose Route Start Last Admin Trade Name Freq PRN Reason Stop Dose Admin Albuterol/Ipratropium 3 ml 02/12/19 19:00 02/16/19 10:13 Duoneb NEB Not Given [id number] [facility]RICE Enoxaparin Sodium 30 mg 02/12/19 21:00 02/16/19 09:05 Lovenox SC 30 mg 0900,2100 [facility] Administration Enoxaparin Sodium 120 mg 02/12/19 21:00 02/16/19 09:04 Lovenox SC 120 mg 0900,2100 [facility] Administration Ferrous Sulfate 325 mg 02/13/19 09:00 02/16/19 09:02 Feosol PO 324 mg DAILY [facility] Administration Flecainide Acetate 50 mg 02/13/19 09:00 02/16/19 09:04 Tambocor PO 50 mg Q12HR [facility] Administration Furosemide 40 mg 02/12/19 06:00 02/16/19 05:57 Lasix SLOW IVP 40 mg 0600,1400 [facility] Administration Guaifenesin 200 mg 02/13/19 07:47 02/15/19 20:04 Robitussin Sf PO 200 mg Q4H PRN Administration Cough Lisinopril 5 mg 02/13/19 09:00 02/16/19 09:03 Zestril PO 5 mg DAILY [facility] Administration Loratadine 10 mg 02/13/19 07:47 02/15/19 20:04 Claritin PO 10 mg DAILYPRN PRN Administration Sinus Symptoms Mometasone Furoate/Formoterol Fumar 2 puff 02/12/19 18:30 02/16/19 06:35 Dulera 200 Mcg/5 Mcg Inhaler INH 2 puff BID-RT [facility] Administration Pantoprazole Sodium 40 mg 02/13/19 09:00 02/16/19 09:04 Protonix PO 40 mg DAILY [facility] Administration Senna/Docusate Sodium 2 tab 02/13/19 07:47 02/15/19 20:03 Senokot S PO 2 tab BIDPRN PRN Administration Constipation Sodium Chloride 10 ml 02/12/19 09:00 02/16/19 09:06 Flush - Normal Saline IVF 10 ml Q12HR [facility] Administration - Exam General Appearance: NAD, awake alert Eye: PERRL, anicteric sclera ENT: no oropharyngeal lesions, moist mucosa Neck: supple, no JVD Heart: no murmur, irregular Respiratory: no wheezes Gastrointestinal: soft, non-tender, non-distended, normal bowel sounds Extremities: no cyanosis, no edema Neurological: cranial nerve grossly intact, no focal deficits Psychiatric: normal affect, A&O x 3 Hosp A/P (1) Atrial fibrillation with RVR Code(s): I48.91 - UNSPECIFIED ATRIAL FIBRILLATION Status: Acute (2) Chronic stage c diastolic heart failure Code(s): I50.32 - CHRONIC DIASTOLIC (CONGESTIVE) HEART FAILURE Status: Chronic (3) Morbid obesity with BMI of 40.0-44.9, adult Code(s): E66.01 - MORBID (SEVERE) OBESITY DUE TO EXCESS CALORIES; Z68.41 - BODY MASS INDEX (BMI) 40.0-44.9, ADULT Status: Chronic (4) Hypertension Code(s): I10 - ESSENTIAL (PRIMARY) HYPERTENSION Status: Chronic Qualifiers: Hypertension type: essential hypertension Qualified Code(s): I10 - Essential (primary) hypertension (5) Tobacco abuse Code(s): Z72.0 - TOBACCO USE Status: Chronic (6) PEARL (obstructive sleep apnea) Code(s): G47.33 - OBSTRUCTIVE SLEEP APNEA (ADULT) (PEDIATRIC) Status: Suspected - Plan for STEPHANIE with cardioversion today currently on lovenox 150mg sc q12h, may switch to eliquis if ok with cardio continue flecainide, lasix, lisinopril await echo results will need outpt sleep study via pcp referal hemostable dc plan per cardio adv
[2019-02-16] MEDS ORDERED: PROPOFOL 200 MG/20 ML VIAL ONE (22:28)
[2019-02-17] MEDS: Furosemide 40 MG/4 ML VIAL SLOW IVP SCH (05:57)
[2019-02-17] MEDS: Mometasone/Formoterol 120 PUFF INHALER INH SCH (07:34)
[2019-02-17 08:12] VITALS: BP 179/99; TEMP 98.7
[2019-02-17] MEDS: Enoxaparin Sodium 30 MG/0.3 ML SYRINGE SC SCH (08:49)
[2019-02-17] MEDS: Lisinopril 5 MG TAB PO SCH (08:49)
[2019-02-17] MEDS: Enoxaparin Sodium 120 MG/0.8 ML SYRINGE SC SCH (08:49)
[2019-02-17] MEDS: Flecainide 50 MG TAB PO SCH (08:50)
[2019-02-17] MEDS: Ferrous Sulfate 325 MG TAB PO SCH (08:50)
--- NOTE | 2019-02-17 17:17 | DIS ---
DATE OF ADMISSION: 02/11/2019 DATE OF DISCHARGE: 02/17/2019 DISCHARGE DISPOSITION: Home. PRIMARY DISCHARGE DIAGNOSES: Atrial fibrillation with rapid ventricular response, status post cardioversion, in sinus rhythm; acute respiratory failure with hypoxia secondary to congestive heart failure with diastolic dysfunction, stage C; morbid obesity, likely underlying obstructive sleep apnea, for outpatient workup; hypertension; and tobacco abuse. PROCEDURES DONE DURING HOSPITALIZATION: CT angio chest done on the day of admission showed no evidence of pulmonary embolus. H and H 12 and 44, platelet count 195 , MCV 92. PT and INR on the day of admission 16.1 and 1.3, PTT 29. Discharge BUN and creatinine 13 and 0.7. Albumin 3.4. BNP is 48. Troponin x3, negative. Urine drug screen is negative. INPATIENT CONSULT: Dr. Sandoval/Dr. García for Cardiology. DISCHARGE MEDICATIONS: 1. Eliquis 5 mg twice daily for a total of 30 days post cardioversion and to be discontinued. 2. Aspirin 81 mg p.o. daily. 3. Ferrous sulfate 325 mg p.o. daily. 4. Flecainide 50 mg twice daily. 5. Lasix 40 mg daily. 6. Lisinopril 5 mg daily. 7. Dulera inhaler 2 puffs twice daily. 8. Protonix 40 mg p.o. daily. ALLERGIES: NO KNOWN DRUG ALLERGIES. DISCHARGE PLAN: The patient to follow up with his primary care physician, Dr. Zabala in 1 week. He also needs to follow up with Dr. García in 2 weeks. BRIEF COURSE DURING HOSPITALIZATION: The patient initially got admitted on the , with complaints of shortness of breath. He was found to be in atrial fibrillation/flutter with RVR. The patient also had acute CHF exacerbation with diastolic dysfunction and acute respiratory failure with hypoxia secondary to above. He was placed on oxygen and has had gentle diuresis done. He was on Cardizem drip. He has had consultation with Dr. García/Dr. Sandoval for Cardiology. The patient soon converted to sinus rhythm. He has had cardioversion done by Dr. García on the . The official operative report is pending at the time of this dictation. He was placed on flecainide 50 mg twice daily. He also needs to take Eliquis 5 mg twice daily for a total of 30 days post cardioversion. He has been cleared by Cardiology for discharge. His medications were optimized. The patient has morbid obesity weighing nearly 315 pounds with a BMI of 42. He likely has underlying sleep apnea/obesity hypoventilation syndrome and has been advised to have a formal sleep study referral via primary care physician. He is ambulating and eating well prior to discharge. Please note, I have seen and examined the patient on the day of discharge. Job ID: [id number] MTDD
--- NOTE | 2019-02-19 09:11 | PQF ---
BABS HOPKINS VINAYA KUMAR MD [id number] [id number] CLINICAL DOCUMENTATION CLARIFICATION FORM: POST DISCHARGE Addendum to original discharge summary date: ____ Late entry note date: __ DATE:02-19-2019 ATTN:Rohan Yu Please exercise your independent, professional judgment in responding to the clarification form. Clinical indicators are provided on the bottom of this form for your review Conflicting documentation was noted in the Medical Record, please clarify if patient is being treated/monitored for: Please check appropriate box(s): [ x ] Acute on chronic diastolic heart failure [ ] Chronic diastolic heart failure [ ] Other diagnosis please specify: [ ] Unable to determine In addition, please specify: Present on Admission (POA): [ x] Yes [ ] No [ ] Unable to determine For continuity of documentation, please document condition throughout progress notes and discharge summary. Thank You. CLINICAL INDICATORS: Hospitalist PN p3 02/12 Acute Diastolic CHF Hospitalist PN p5 02/14 Chronic Diastolic heart failure H&P p1 02/11-Worsening shortness of breath associated with weight gain of about 10 pounds in past few days H&P p1 02/11-Some dyspnea on exertion, orthopnea and palpitation H&P p2 02/11-Possible underlying CHF. The previous echo did not show any diastolic dysfunction or low EF Cardio consult p3 02/12-Cardio consult p3 02/12 Cardio consult p3 02/12-He did have a normal left ventricular systolic function by MUGA scan Lab chem 02/15-BNP 48.1 RISK FACTORS: H&P p1 02/11-Atrial fibrillation H&P p1 02/11-CAD Hospitalist PN p3 02/12 -Hypertension TREATMENT: H&P p2 02/11-Cardizem drip 5mg/h MAR 02/11/19-IV Lasix 40 mg IV BID Odalis Dudley consult 02/12-Cardiology Consult Hospitalist PN p3 02/12 -Digoxin 0.25mg IVP (This form is maintained as a part of the permanent medical record) 2014 [employer] All Rights Reserved Cecilia [email or web address] [not provided] MTDD
== END 2019-02-17 16:14 | disposition home or self-care (01) | DRG 291 ==
LOC: ERS 17:46 → 2NO 19:56
PROVIDERS: ADMIT Hospitalist; ATTEND Hospitalist
DX: I11.0 Hypertensive heart disease with heart failure (principal); J96.01 Acute respiratory failure with hypoxia; E66.2 Morbid (severe) obesity with alveolar hypoventilation; Z68.41 Body mass index [BMI] 40.0-44.9, adult; I48.92 Unspecified atrial flutter; I50.33 Acute on chronic diastolic (congestive) heart failure; I48.0 Paroxysmal atrial fibrillation; I25.10 Atherosclerotic heart disease of native coronary artery without angina pectoris; K21.9 Gastro-esophageal reflux disease without esophagitis; E83.42 Hypomagnesemia; Z87.891 Personal history of nicotine dependence; Z79.899 Other long term (current) drug therapy; Z91.19 Patient's noncompliance with other medical treatment and regimen; Z88.8 Allergy status to other drugs, medicaments and biological substances
CPT/HCPCS: 36415; 36416; 71275; 80048; 80053; 80306; 83735; 83880; 84484; 85007; 85014; 85018; 85025; 85027; 85049; 85610; 85730; 92960; 93005; 93312; 93798; 94640; 96374; 96376; J0360; J1160; J1650; J1940; J2704; J3475; J3490; J7620; Q9966

== ENCOUNTER 2019-04-20 16:01 | Inpatient (IN) | payer BC ==
[~2019-04-20 16:01] MED LIST changes: -ISOVUE-370 76%-LOCM 1 ML ONE; +Iopamidol-370 76% 500 ML 1 ML ONE
--- NOTE | 2019-04-20 18:11 | CT ---
CT PULMONARY ANGIOGRAM WITH IV CONTRAST AND 3D POSTPROCESSIN04/20/19 HISTORY: Chest pain and new onset atrial flutter. FINDINGS: There is inadequate opacification of the peripheral pulmonary arterial branches to satisfactorily joaquin luate for pulmonary embolism. The central pulmonary arteries demonstrate no filling defects to sugge st pulmonary embolism. There are vascular calcifications without evidence of aneurysmal dilatation of the thoracic aorta. No pleural or pericardial effusions are seen. No pneumothoraces, focal areas of consolidation or lung masses/nodules are seen. There are degenerative changes in the spine. IMPRESSION: No CT evidence of central pulmonary embolism. POS: SACHA
[2019-04-20] MEDS ORDERED: Ondansetron PF 4 MG/2 ML Vial IVP PRN (19:16)
[2019-04-20] MEDS ORDERED: Acetaminophen 325 MG TAB PO PRN (19:16)
[2019-04-20] MEDS ORDERED: Diltiazem 125 MG in Sodium Chloride 0.9% 100 ML IVPB SCH (19:30)
[2019-04-20 20:51] LABS: Troponin I 0.016 ng/mL (< 0.028)
[2019-04-20] MEDS ORDERED: Triamcinolone 0.025 % Cream 15GM TUBE TOP PRN (21:27)
--- NOTE | 2019-04-20 21:28 | PDOC.HHP ---
Hospitalist HPI - History of Present Illness abdominal bloating History of Present Illness: This is 53 year old male patient with history of atrial fibrillation s/p ablation a few months ago, CHF, who presented to ER with abdominal bloating. The patient states his abdomen was getting more distended the past few days and he reported some itching on his abdomen. He went to an outside doctor who found his heart rate to be elevated and in atrial flutter and he was sent to the ER. He was also noticed to have a rash on his abdomen but denies taking any new medications in the past few weeks or using any new lotions or detergents. He denies difficulty urinating or constipation. The patient denies palpitations, diaphoresis or chest pain. He has been more short of breath on exertion the last few days and he started using his home oxygen. He feels he has gained weight. He reports having to sleep on two pillows at night the past few days. He has been drinking a lot of fluid and eating a lot of salt. He is compliant with all of his medications and took them all this morning. The patient was recently discharged on 02/17 for afib with RVR. He had a cardioversion done at that time and converted to sinus rhythm. He was discharged on flecainide 50 mg bid and eliquis for 30 days. ED Course: The patient had an EKG in the ER which showed atrial flutter with variable AV block. His heart rate was noted to be in the 160s. Initially he was placed on diltiazem drip of 10 and weaned down to 5. However his heart rate went back up to 120 so it was increased back up to 10. He had a CTA of his chest which showed no PE. Troponin was mlidly elevated at 0.1 . Hospitalist ROS - Review of Systems Constitutional: denies: fever, chills Eyes: denies: pain, vision change ENT: denies: nose congestion Respiratory: reports: shortness of breath. denies: cough, dry Cardiovascular: reports: edema. denies: chest pain, palpitations, orthopnea Gastrointestinal: denies: nausea, vomiting, abdominal pain, diarrhea, constipation Genitourinary: denies: dysuria, frequency Musculoskeletal: denies: neck pain, shoulder pain Skin: reports: rash Neurological: denies: weakness, numbness Hospitalist History - Past Medical History Cardiac: reports: AFIB, CHF Pulmonary: reports: COPD Gastrointestinal: reports: no pertinent history Heme/Onc: reports: no pertinent history Hepatobiliary: reports: no pertinent history Psych: reports: no pertinent history Musculoskeletal: reports: no pertinent history Rheumatologic: reports: no pertinent history Infectious Disease: reports: no pertinent history ENT: reports: no pertinent history Renal/: reports: no pertinent history Endocrine: reports: no pertinent history Dermatology: reports: no pertinent history - Past Surgical History Other Surgical History: Facial laceration repair - Family History Other Family History: Heart problems in paternal side Cancer in mothers side - Social History Smoking Status: Former smoker (Smoked for 40 years, quit two months ago) Alcohol: reports: Occassional Drugs: reports: none Living Situation: With Family - Exam General Appearance: NAD, awake alert Eye: PERRL, anicteric sclera ENT: normocephalic atraumatic, no oropharyngeal lesions Neck: supple, symmetric, no JVD Heart: no murmur, no gallops, no rubs Heart - other findings: irregularly irregular Respiratory: CTAB, no wheezes, no rales, no ronchi Gastrointestinal: soft, non-tender Gastrointestinal - other findings: Obese. + BS. Maculopapular urticarial rash on Left side Extremities: no cyanosis, no clubbing, 2+ LE edema Skin: normal turgor, no lesions, no rashes Neurological: cranial nerve grossly intact, normal sensation to touch, no weakness, no focal deficits Musculoskeletal: normal tone, normal strength Psychiatric: normal affect, normal behavior, A&O x 3 Hospitalist Results - Labs Lab results: Troponin I 0.016 ng/mL (< 0.028) 04/20/19 19:33 Hospitalist H&P A/P - Plan Plan: Chest Xray: CHF CTA: no evidence of PE This is a 53 year old male with past medical history of afib s/p ablation, CHF who presents to the ER with abdominal bloating but incidentally discovered to be in uncontrolled atrial flutter and admitted for further workup #Aflutter #Acute diastolic heart failure - diurese with lasix 40 mg IV for now, chest X ray consistent with CHF, along with patient having PND, peripheral edema and orthopnea - continue cardizem drip, titrate to HR of < 110 - continue fleicanide and eliquis - cardiology consult in am, Dr García aware - repeat ECHO. CTA negative for PE - continue to trend troponins, so far negative x 2 Rash on abdomen - possibly urticaria - unclear etiology. Will try topical steroid cream for now. The patient has no burning or pain associated with rash so unlikely shingles - benadryl prn for itching Hypernatremia - sodium 147, possibly from fluid overload - administer lasix and reassess COPD - resume home inhaler GERD - continue protonix Iron deficiency anemia - resume ferrous sulfate Code status: full code DVT prophylaxis: eliquis Diet: heart healthy
[2019-04-20] MEDS ORDERED: Furosemide 40 MG/4 ML VIAL SLOW IVP SCH (21:30)
[2019-04-20] MEDS ORDERED: Triamcinolone 0.1% Cream 30 GM TUBE TOP PRN (22:30)
[2019-04-20] MEDS ORDERED: diphenhydrAMINE 25 MG CAP PO PRN (23:06)
[2019-04-20 23:18] LABS: Troponin I 0.023 ng/mL (< 0.028)
[2019-04-21 04:11] LABS: ALT (SGPT) 23 U/L (8-55); AST (SGOT) 23 U/L (5-34); Albumin 3.7 g/dL (3.5-5.0); Alkaline Phosphatase 99 U/L (40-110); BUN (Urea Nitrogen) 19 mg/dL (8.4-25.7); Bilirubin, Total 0.9 mg/dL (0.2-1.2); Calc. Creatinine Clearance 195 mL/min (70-130); Calcium 9.4 mg/dL (7.8-10.44); Estimated GFR-MDRD 87; Globulin 3.9 g/dL (2.4-3.5); Glucose 131 mg/dL (70-105); Protein, Total 7.6 g/dL (6.0-8.3)
[2019-04-21 04:20] LABS: Anion Gap 14 mmol/L (10-20); Carbon Dioxide 40 mmol/L (22-29); Chloride 94 mmol/L (98-107); Potassium 4.1 mmol/L (3.5-5.1); Sodium 144 mmol/L (136-145)
[2019-04-21 05:11] LABS: #Lymphocytes 0.9 thou/uL (1.20-3.40); #Monocytes 0.4 thou/uL (0.11-0.59); #Neutrophils 9.9 thou/uL (1.40-6.50); %Basophils 0.1 % (0.0-1.0); %Eosinophils 0.1 % (0.0-10.0); %Lymphocytes 8.3 % (21.0-51.0); %Monocytes 3.8 % (0.0-10.0); %Neutrophils 87.7 % (42.0-75.0); Hemoglobin 14.4 g/dL (14.0-18.0); Mean Corpuscular Hemoglobin 27.4 pg (27.0-31.0); Mean Corpuscular Volume 94.4 fL (78.0-98.0); Mean Platelet Volume 8.5 fL (7.4-10.4); Platelet Count 204 thou/uL (130-400); RBC Distribution Width 16.9 % (11.5-14.5); Red Blood Cell (RBC) Count 5.27 mill/uL (4.70-6.10); White Blood Cell (WBC) Count 11.3 thou/uL (4.8-10.8)
--- NOTE | 2019-04-21 08:43 | RAD ---
Chest one view HISTORY: Dyspnea. COMPARISON: 04/20/2019. FINDINGS: Cardiac silhouette is magnified and enlarged. Pulmonary vasculature upper limits of normal. Edema not evident on recent CT exam when the viscosity inspector topogram looked similar to the current images. Mediastinum is midline. awake overnight monitor leads overlie the chest. No lobar consolidation or evidence o f pneumothorax. IMPRESSION: Cardiomegaly. No evidence of pulmonary edema.
[2019-04-21] MEDS: Docusate 100 MG CAP PO PRN (09:05)
[2019-04-21] MEDS: Triamcinolone 0.1% Cream 15 GM TUBE TOP PRN ×2 (09:05→21:15)
[2019-04-21] MEDS: Flecainide 50 MG TAB PO SCH ×3 (09:06→21:15)
[2019-04-21] MEDS: Ferrous Sulfate 325 MG TAB PO SCH (09:06)
[2019-04-21] MEDS: Lisinopril 5 MG TAB PO SCH (09:06)
[2019-04-21] MEDS: Apixaban 5 MG TAB PO SCH ×2 (09:06→21:15)
[2019-04-21] MEDS: Aspirin Chewable 81 MG TAB PO SCH (09:06)
--- NOTE | 2019-04-21 11:13 | PQF ---
KELLIEBABS BHMIGNON BECK [id number] [facility]- [id number] CLINICAL DOCUMENTATION IMPROVEMENT CLARIFICATION FORM: ICD-10 Updated PLEASE DO AN ADDENDUM TO THE PROGRESS NOTE WITH ANY DOCUMENTATION UPDATES OR ADDITIONS AND CARRY THROUGH TO DC SUMMARY. THANK YOU. DATE: 04/21/19 ATTN: Dr. Vizcaino NOT MY PATIENT Please exercise your independent, professional judgment in responding to the clarification form. Clinical indicators are provided on the bottom of this form for your review Please check appropriate box(s): [ ] Acute Respiratory Failure: [ ] with Hypoxia [ ] Acute On Chronic Respiratory Failure: [ ] with Hypoxia [ ] Acute Respiratory Failure due to: (etiology) [ ] Hypoxia [ ] Other diagnosis [ ] Unable to determine In addition, please specify: Present on Admission (POA): [ ] Yes [ ] No [ ] Unable to determine For continuity of documentation, please document condition throughout progress notes and discharge summary. Thank You. CLINICAL INDICATORS - SIGNS / SYMPTOMS / LABS / RESULTS AND LOCATION IN MR "SOB on exertion; starting using home oxygen" per 04/20 H&P([facility]) Decreased oxygen saturation (<90% room air or < 95% on oxygen). Cyanosis/Hypoxia -->04/20 VS: 94% ON 2L NC-- 3L NC 95%-98% 04/20 VS: HR 114 RR 34 04/20 ([facility]): "CXR-CHF" RISK FACTORS / RESULTS AND LOCATION IN MR History of home O2 use--> "SOB on exertion; starting using home oxygen" per H&P([facility]) 04/20 H&P([facility]): "Aflutter; acute diastolic heart failure" TREATMENTS / RESULTS AND LOCATION IN MR Oxygen--> 2-3L NC per orders 04/20 Monitoring of oxygenation status --> Telemetry orders 04/20 Respiratory treatments Diuresis--> Lasix 40mg IV once 04/20 per orders Acute Respiratory Failure: ABG pH < 7.35 or > 7.45; Decreased oxygen saturation (<90% room air or < 95% on oxygen); PCO2 > 50 mm Hg; PO2 < 60 mm Hg; Labored or rapid respirations ARDS: Dx Criteria [[place] ARDS]: Respiratory symptoms within one week of a known clinical insult (e.g. shock, infection, surgery, trauma) Bilateral opacities in CXR/Chest CT not due to CHF or fluid (This form is maintained as a part of the permanent medical record) 2014 [employer]. All Rights Reserved Wendy Robison RN, BSN, CCDS [email or web address] [phone] [facility]
[2019-04-21] MEDS ORDERED: Diltiazem 125 MG in Sodium Chloride 0.9% 100 ML IVPB SCH (11:15)
--- NOTE | 2019-04-21 11:18 | PDOC.HOSPP ---
- Subjective Encounter Date: 04/21/19 Encounter Time: 11:16 Subjective: The patient feels much better, less short of breath. His diltiazem drip has been weaned down to 5/hour. HE is now in sinus rhythm. He denies chest pain or palpitations. Patient says he diuresed a lot overnight. He denies cough His abdomen feels less bloated, however is still bloated. He hasn't had a bowel movement today. Patient is trying to lose weight and therefore has decided not to eat anything to try and lose weight. Advised him that he still needs to eat. He says he eats large meals and sleeps right after. 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 After work he sits on the couch and watches TV and goes to sleep - Objective Vital Signs & Weight: Vital Signs (12 hours) Temp Pulse BP 04/21/19 11:12 97.9 F 04/21/19 09:06 76 147/98 H 04/21/19 07:30 97.4 F L 04/21/19 03:54 98.0 F 04/21/19 00:00 97.3 F L Weight Weight 316 lb 8 oz Most Recent Monitor Data Heart Rate from ECG 76 NIBP 136/84 NIBP BP-Mean 101 Respiration from ECG 31 SpO2 93 I&O: 04/20/19 04/21/19 04/22/19 06:59 06:59 06:59 Intake Total 784.2 Output Total 850 Balance -65.8 Result Diagrams: 04/21/19 03:26 04/21/19 03:26 Hospitalist ROS - Review of Systems Constitutional: denies: fever, chills - Medication Medications: Active Medications Generic Name Dose Route Start Last Admin Trade Name Freq PRN Reason Stop Dose Admin Apixaban 5 mg 04/21/19 09:00 04/21/19 09:06 Eliquis PO 5 mg BID LATRICE Administration Aspirin 81 mg 04/21/19 09:00 04/21/19 09:06 Aspirin Chewable PO 81 mg DAILY LATRICE Administration Docusate Sodium 100 mg 04/21/19 00:18 04/21/19 09:05 Colace PO 100 mg BIDPRN PRN Administration Constipation Ferrous Sulfate 325 mg 04/21/19 08:00 04/21/19 09:06 Feosol PO 325 mg QAM-WM LATRICE Administration Flecainide Acetate 50 mg 04/21/19 09:00 04/21/19 09:06 Tambocor PO 50 mg BID LATRICE Administration Lisinopril 5 mg 04/21/19 09:00 04/21/19 09:06 Zestril PO 5 mg DAILY LATRICE Administration Triamcinolone Acetonide 0 gm 04/21/19 04:35 04/21/19 09:05 Kenalog 0.1% Cream TOP 1 applic BIDPRN PRN Administration Topical Irritations - Exam General Appearance: NAD, awake alert General - other findings: on 2L oxygen. MOrbid obesity Eye: PERRL, anicteric sclera ENT: normocephalic atraumatic, no oropharyngeal lesions Neck: supple, symmetric, no JVD, no thyromegaly Heart: RRR, no murmur, no gallops, no rubs Respiratory: CTAB, no wheezes, no rales, no ronchi Gastrointestinal: soft Gastrointestinal - other findings: distended. Rash significantly improved, not as firm Extremities: no cyanosis Extremities - other findings: 2 + pitting edema Skin: normal turgor, no lesions, no rashes Neurological: cranial nerve grossly intact, normal sensation to touch, no focal deficits, no new deficit Musculoskeletal: normal tone, normal strength, no muscle wasting Psychiatric: normal affect, normal behavior, A&O x 3, oriented to person Hosp A/P - Plan This is 53 year old male who presented with acute diastolic heart failure, uncontrolled atrial flutter #Aflutter #Acute diastolic heart failure - diuresed overnight, repeat chest X ray shows cardiomegaly with no edema. Will give additional 20 mg IV lasix. Cardiology is following - now in sinus rhythm, wean cardizem drip down, currently on 5 - continue fleicanide and eliquis - troponin negative times three - repeat ECHO pending. CTA negative for PE - continue to trend troponins, so far negative x 2 Rash on abdomen - urticaria vs fluid build up from heart failure - improved - continue topical steroid, continue diuresis, benadryl prn Hypernatremia - resolved Leukocytosis - WBC 11.3, check UA Morbid obesity - advised patient to avoid eating junk food and sleeping after meals - nutrition consult COPD - resume home inhaler GERD - continue protonix Iron deficiency anemia - resume ferrous sulfate DVT prophylaxis: eliquis Code status: full code
[2019-04-21] MEDS ORDERED: Furosemide 20 MG/2 ML VIAL SLOW IVP SCH (11:30)
--- NOTE | 2019-04-21 12:58 | CON ---
DATE OF CONSULTATION: 04/21/2019 REASON FOR CONSULTATION: Atrial flutter. HISTORY OF PRESENT ILLNESS: Mr. Gu is a pleasant 53-year-old white gentleman, who comes to the hospital for palpitations. He was seen in the ER and found to be in atrial flutter, typical, so he was admitted and placed on a diltiazem drip. He converted back to sinus rhythm earlier this morning. He has been on flecainide 50 mg b.i.d. for his history of atrial fibrillation, which he had first earlier this year. He had one recurrence after he was not taking his medications, but since October, he has been taking everything including his Eliquis. He is feeling much better. He denies any chest pain, tightness, pressure. He is amenable to having an ablation if he needs to. PAST MEDICAL HISTORY: 1. Paroxysmal atrial fibrillation. 2. History of diastolic heart failure. 3. Hypertension. History of GI bleeding in the past, however, he has been on Eliquis since October and has not had any problems with bleeding or anemia. PAST SURGICAL HISTORY: None. OUTPATIENT MEDICATIONS: 1. Famotidine 10 mg a day. 2. Docusate 100 mg a day. 3. Lisinopril 5 mg a day. 4. Furosemide 40 mg a day. 5. Flecainide 50 mg b.i.d. 6. Ferrous sulfate 325 a day. 7. Aspirin 81 a day. 8. Eliquis 5 mg b.i.d. ALLERGIES: CITALOPRAM AND LOSARTAN. SOCIAL HISTORY: Uses marijuana and stopped smoking. Remote history of methamphetamines, however, he had a positive methamphetamine drug screen in his last admission. However, this was likely related to interaction with famotidine as confirmation and it was in fact negative for methamphetamines. No alcohol. REVIEW OF SYSTEMS: A 12-point review of systems was done and was found to be negative unless stated in the history of present illness. PHYSICAL EXAMINATION: VITAL SIGNS: Temperature 97.9, pulse 88, respiratory rate 18, saturating 100% on room air, blood pressure 126/87. GENERAL: Awake, alert, oriented x3. No distress. HEENT: Normocephalic and atraumatic. NECK: Supple. LUNGS: Reduced breath sounds bilaterally. CARDIOVASCULAR: S1 and S2. No S3 or S4. No murmurs. ABDOMEN: Soft. Positive bowel sounds. EXTREMITIES: No edema. SKIN: Warm and dry. LABORATORY DATA: Laboratory work was reviewed. White count of 11, hemoglobin of 14, hematocrit of 49, platelet count of 204. Chemistries unremarkable except for a chloride of 94, carbon dioxide of 40, normal BUN and creatinine, glucose was 131. Troponin was negative x3. EKG was reviewed, typical atrial flutter. Currently back in sinus. ASSESSMENT AND PLAN: 1. Atypical atrial flutter. 2. History of paroxysmal atrial fibrillation. 3. Hypertension. 4. History of GI bleeding, however, he has tolerated his Eliquis for the last 6 months with no anemia. PLAN: 1. Continue flecainide, beta valerie, and Eliquis for stroke prophylaxis. 2. We will consult EP for consideration of an aflutter ablation. 3. He states that he would rather stay in the hospital until the ablation is done, so probably this may have to happen until Friday. 4. We will await records from Electrophysiology. Thank you for letting us participate in the care of your patient. We will follow. Job ID: [id number]
[2019-04-21 13:16] LABS: Bilirubin Negative (Negative); Blood, Urine Negative (Negative); Clarity Clear (Clear); Glucose, Urine (Dipstick) Normal (Negative); Leukocyte Negative Leu/uL (Negative); Nitrite Negative (Negative); Protein, Urine (Dipstick) 70 mg/dL (Neg-Trace); RBC/HPF 0-3 HPF (0-3); Urobilinogen Normal mg/dL (Less than 2); WBC/HPF 0-3 HPF (0-3)
[2019-04-21 13:25] LABS: Bacteria/HPF Rare-Few HPF (None Seen)
[2019-04-21 13:26] LABS: Urine Culture Reflex No No
[2019-04-21] MEDS: Carvedilol 3.125 MG TAB PO SCH (16:12)
[2019-04-21] MEDS ORDERED: Furosemide 40 MG/4 ML VIAL SLOW IVP SCH (16:30)
[2019-04-21] MEDS: Mometasone/Formoterol 120 PUFF INHALER INH SCH (18:37)
--- NOTE | 2019-04-22 03:33 | CON ---
DATE OF CONSULTATION: 04/21/2019 HISTORY OF PRESENT ILLNESS: I am seeing Mr. Gu at our [facility] as an Electrophysiology change consultant. His problems are, 1. Recurrent atrial arrhythmias. a. History of atrial fibrillation, requiring flecainide for suppression. b. Current admission with atrial flutter with rapid ventricular rates, now back to sinus rhythm. 2. History of preserved LVEF of 50% to 55%. Moderate left atrial enlargement. 3. History of gastrointestinal bleed, but tolerating Eliquis currently. 4. History of hypertension. 5. History of morbid obesity. ALLERGIES: CITALOPRAM AND LOSARTAN. MEDICATIONS: At home include, 1. Famotidine. 2. Docusate. 3. Lisinopril 5 mg a day. 4. Furosemide 40 mg a day. 5. Flecainide 50 mg twice a day. 6. Ferrous sulfate 325 mg daily. 7. Aspirin 81 mg daily. 8. Eliquis 5 mg twice a day. SUBJECTIVE: Mr. Gu is here with recurrent palpitations. He is noticed to be in atrial flutter which appears to be typical isthmus dependent in morphology. He was placed on diltiazem drip and while on monitor here in the step-down ICU, he is currently back to sinus rhythm. He has been continued on flecainide 50 mg twice a day, which seems to have been adhering to. He does not pass out. He denies chest pains. No fever, chills, or cough. No stroke-like symptoms. No neurological deficits. No PND or orthopnea. REVIEW OF SYSTEMS: Rest of 12-point review of systems otherwise unremarkable. PAST MEDICAL HISTORY: As above. SOCIAL HISTORY: The patient denies smoking, EtOH, or drug abuse. FAMILY HISTORY: Not contributory. OBJECTIVE DATA: VITAL SIGNS: Blood pressure is 120/80, heart rate 98, and respiration is 24. The patient is afebrile. GENERAL: He is alert, oriented, morbidly obese man, in no apparent distress with weight measure of 318 pounds. NECK: Supple. Jugular veins not distended. CHEST: Coarse without crackles. HEART: Sounds are regular to rate and rhythm. No murmur or gallop. ABDOMEN: Benign. Bowel sounds positive. EXTREMITIES: Lower extremity without edema, clubbing, or cyanosis. Pulses are adequate. NEUROLOGIC: The patient is nonfocal. MUSCULOSKELETAL: Without joint swelling or deformity. SKIN: Without rash. DATABASE: EKG is reviewed revealing atrial flutter, which appears to be typical isthmus dependent in morphology at a rate of 114 beats per minute. QRS is narrow at 82 milliseconds, QTc is 512 milliseconds. Subsequent telemetry strips reveal sinus rhythm, occasional PACs. LABORATORY DATA: White cell count 11.3, hemoglobin 14.4, and platelet count is 204. Sodium 144, potassium 4.1, BUN is 19, and creatinine 0.91. AST and ALT are 23 and 23. The EKGs from prior admissions reviewed on February 11, 2019, reveals coarse atrial fibrillation, not flutter with rates 110 beats per minute, and also in October 27, 2018, EKG suggestive of sinus rhythm. ASSESSMENT AND PLAN: Mr. Gu is a 53-year-old man with a history of hypertension, obesity, gastrointestinal bleed without recurrence on Eliquis and aspirin since this summer. On the other hand, he had recurrent atrial arrhythmias and atrial fibrillation, now the fibrillation seems to be organized into an atrial flutter on this admission. On the other hand, he already converted back to sinus rhythm. We had a long discussion about the nature of his atrial arrhythmias. We discussed differences between atrial fibrillation and flutter. Although, atrial flutter circuit is clearly the main cause of his current admission, he is likely to have an alternative atrial arrhythmia circuit as well and atrial fibrillation will be very likely recur in the future long-term. Hence, he may benefit from not just simple cavotricuspid isthmus ablation, but also additional pulmonary venous isolation could be considered. In the meantime, I think it is reasonable to increase his flecainide and also add beta-valerie to control rate, in case if rapid heart rates recur. Continue anticoagulation with Eliquis with or without aspirin, Dr. García's discretion. We will make arrangements for an outpatient ablation. He could be discharged if remain stable overnight. We will discuss with Dr. García. Thank you again for letting me to participate in the care of this patient. Job ID: [id number] [facility]
[2019-04-22] MEDS: Mometasone/Formoterol 120 PUFF INHALER INH SCH ×2 (07:39→19:03)
[2019-04-22] MEDS: Ferrous Sulfate 325 MG TAB PO SCH (09:29)
[2019-04-22] MEDS: Lisinopril 5 MG TAB PO SCH (09:29)
[2019-04-22] MEDS: Aspirin Chewable 81 MG TAB PO SCH (09:30)
[2019-04-22] MEDS: Carvedilol 3.125 MG TAB PO SCH ×2 (09:30→17:13)
[2019-04-22] MEDS: Flecainide 50 MG TAB PO SCH ×2 (09:30→21:25)
[2019-04-22] MEDS: Apixaban 5 MG TAB PO SCH ×2 (09:30→21:25)
[2019-04-22] MEDS: Docusate 100 MG CAP PO PRN (09:34)
[2019-04-22 09:45] LABS: BUN (Urea Nitrogen) 30 mg/dL (8.4-25.7); Calc. Creatinine Clearance 173 mL/min (70-130); Estimated GFR-MDRD 77; Glucose 143 mg/dL (70-105)
[2019-04-22 09:50] LABS: Hemoglobin 13.9 g/dL (14.0-18.0); Mean Corpuscular HGB CONC 28.6 g/dL (32.0-36.0); Mean Corpuscular Hemoglobin 27.8 pg (27.0-31.0); Mean Corpuscular Volume 97.1 fL (78.0-98.0); Mean Platelet Volume 8.4 fL (7.4-10.4); Platelet Count 191 thou/uL (130-400); RBC Distribution Width 16.9 % (11.5-14.5); Red Blood Cell (RBC) Count 5.02 mill/uL (4.70-6.10); White Blood Cell (WBC) Count 16.5 thou/uL (4.8-10.8)
[2019-04-22 09:56] LABS: Anion Gap 13 mmol/L (10-20); Chloride 90 mmol/L (98-107); Potassium 3.8 mmol/L (3.5-5.1); Sodium 140 mmol/L (136-145)
[2019-04-22 10:04] LABS: Carbon Dioxide 41 mmol/L (22-29)
[2019-04-22] MEDS ORDERED: Flecainide 50 MG TAB PO SCH (11:00)
--- NOTE | 2019-04-22 16:57 | PDOC.HOSPP ---
- Subjective Encounter Date: 04/22/19 Encounter Time: 10:00 Subjective: The patient is doing well, he denies chest pain or palpitations. He ambulated and feels much less short of breath. Hasn't had bowel movement today. Per cardiology, QT interval prolonged, so plan to decrease fleicanide dose tomorrow and recheck. Patient wants to be discharged by 9 am tomorrow. Patient is on 3L oxygen at home, uses it prn. Was on 5L in the hospital. - Objective Vital Signs & Weight: Vital Signs (12 hours) Temp Pulse Resp Pulse Ox 04/22/19 16:16 97.7 F 04/22/19 10:39 98.2 F 04/22/19 09:29 99 04/22/19 08:00 98 04/22/19 07:39 99 23 H 92 L 04/22/19 07:08 97.9 F Weight Weight 318 lb 9.087 oz Most Recent Monitor Data Heart Rate from ECG 83 NIBP 144/86 NIBP BP-Mean 105 Respiration from ECG 19 SpO2 92 I&O: 04/21/19 04/22/19 04/23/19 06:59 06:59 06:59 Intake Total 784.2 1480 Output Total 850 770 Balance -65.8 710 Result Diagrams: 04/22/19 08:57 04/22/19 08:57 Hospitalist ROS - Review of Systems Constitutional: denies: fever, chills Eyes: denies: pain, vision change - Medication Medications: Active Medications Generic Name Dose Route Start Last Admin Trade Name Freq PRN Reason Stop Dose Admin Apixaban 5 mg 04/21/19 09:00 04/22/19 09:30 Eliquis PO 5 mg BID LATRICE Administration Aspirin 81 mg 04/21/19 09:00 04/22/19 09:30 Aspirin Chewable PO 81 mg DAILY LATRICE Administration Carvedilol 3.125 mg 04/21/19 17:00 04/22/19 09:30 Coreg PO 3.125 mg BID-WM LATRICE Administration Docusate Sodium 100 mg 04/21/19 00:18 04/22/19 09:34 Colace PO 100 mg BIDPRN PRN Administration Constipation Ferrous Sulfate 325 mg 04/21/19 08:00 04/22/19 09:29 Feosol PO 325 mg QAM-WM LATRICE Administration Lisinopril 5 mg 04/21/19 09:00 04/22/19 09:29 Zestril PO 5 mg DAILY LATRICE Administration Mometasone Furoate/Formoterol Fumar 2 puff 04/21/19 18:30 04/22/19 07:39 Dulera 200 Mcg/5 Mcg Inhaler INH 2 puff BID-RT LATRICE Administration Triamcinolone Acetonide 0 gm 04/21/19 04:35 04/21/19 21:15 Kenalog 0.1% Cream TOP 1 applic BIDPRN PRN Administration Topical Irritations - Exam General Appearance: NAD, awake alert Eye: PERRL, anicteric sclera ENT: normocephalic atraumatic, no oropharyngeal lesions Neck: supple, symmetric, no JVD, no thyromegaly Heart: RRR, no murmur, no gallops, no rubs Respiratory: CTAB, no wheezes, no rales, no ronchi, no tachypnea Gastrointestinal: soft, non-tender, non-distended, normal bowel sounds Extremities: no cyanosis, no clubbing, no edema Skin: normal turgor, no lesions, no rashes Neurological: cranial nerve grossly intact, normal sensation to touch, no focal deficits, no new deficit Musculoskeletal: normal tone, normal strength, no muscle wasting Psychiatric: normal affect, normal behavior, A&O x 3 Hosp A/P - Plan This is 53 year old male who presented with acute diastolic heart failure, uncontrolled atrial flutter #Aflutter #Acute diastolic heart failure - diuresed overnight, repeat chest X ray shows cardiomegaly with no edema. - cardizem drip weaned off. Fleicanide will be decreased to 75 mg bid, needs repeat EKG tomorrow. Continue coreg 3.125 mg po bid - ECHO currently pending still, troponin negative times three. CTA showed no PE - per Dr. Osei, will likely need another ablation done as an outpatient Leukocytosis - increased to 16.5, no fevers. UA negative, CTA shows no pneumonia - will monitor Rash on abdomen - urticaria vs fluid build up from heart failure - improved - continue topical steroid, continue diuresis, benadryl prn Hypernatremia - resolved Morbid obesity - advised patient to avoid eating junk food and sleeping after meals - nutrition consult COPD - resume home inhaler GERD - continue protonix Iron deficiency anemia - continue ferrous sulfate DVT prophylaxis: eliquis Code status: full code
--- NOTE | 2019-04-22 16:57 | CON ---
DATE OF CONSULTATION: 04/22/2019 HISTORY OF PRESENT ILLNESS: Mr. Gu is a pleasant gentleman, who presented feeling bad. He is found to have atrial flutter. He is tentatively on the schedule at some point for an ablation. I was consulted because of his presence in the intermediate care unit. He is back in sinus rhythm. PAST MEDICAL HISTORY: Remarkable for: 1. Hypertension. 2. History of GI bleed. 3. History of atrial fibrillation. ALLERGIES: HE REPORTS ALLERGIES TO LOSARTAN AND CITALOPRAM. SOCIAL HISTORY: He is a former drug user. FAMILY HISTORY: Not obtained. REVIEW OF SYSTEMS: Twelve point review of systems obtained, otherwise negative. PHYSICAL EXAMINATION: GENERAL: He is in no distress. VITAL SIGNS: He is afebrile. Blood pressure 144/86, heart rate 80, respiratory rate is 18, oximetry is 92% to 94%. He is 4 feet 8 inches, 318 pounds. HEAD AND NECK: Unremarkable. LUNGS: Clear. HEART: Regular rhythm. S1 and S2 are normal. ABDOMEN: Soft and nontender. EXTREMITIES: Without clubbing, cyanosis, or edema. IMPRESSION: 1. Atrial flutter with history of atrial fibrillation. 2. Probable obesity hypoventilation syndrome. He would benefit from a sleep study. I have asked him to contact my office and given him my phone number. I will be happy to set him up for sleep study in the future. This is a 70 minute consult, with greater than 50% of time spent on unit coordinating care. Job ID: [id number] MTDD
[2019-04-23 04:51] LABS: Hemoglobin 12.7 g/dL (14.0-18.0); Mean Corpuscular HGB CONC 28.6 g/dL (32.0-36.0); Mean Corpuscular Hemoglobin 27.7 pg (27.0-31.0); Mean Corpuscular Volume 96.8 fL (78.0-98.0); Mean Platelet Volume 8.3 fL (7.4-10.4); Platelet Count 172 thou/uL (130-400); RBC Distribution Width 16.6 % (11.5-14.5); Red Blood Cell (RBC) Count 4.61 mill/uL (4.70-6.10)
[2019-04-23 05:11] LABS: ALT (SGPT) 25 U/L (8-55); AST (SGOT) 25 U/L (5-34); Albumin 3.6 g/dL (3.5-5.0); Alkaline Phosphatase 87 U/L (40-110); BUN (Urea Nitrogen) 28 mg/dL (8.4-25.7); Bilirubin, Total 1.2 mg/dL (0.2-1.2); Calc. Creatinine Clearance 186 mL/min (70-130); Estimated GFR-MDRD 83; Globulin 3.7 g/dL (2.4-3.5); Glucose 104 mg/dL (70-105); Protein, Total 7.3 g/dL (6.0-8.3)
[2019-04-23 05:21] LABS: Anion Gap 11 mmol/L (10-20); Chloride 89 mmol/L (98-107); Potassium 3.9 mmol/L (3.5-5.1); Sodium 141 mmol/L (136-145)
[2019-04-23 05:23] LABS: Carbon Dioxide 45 mmol/L (22-29)
[2019-04-23] MEDS: Mometasone/Formoterol 120 PUFF INHALER INH SCH ×2 (07:17→19:40)
--- NOTE | 2019-04-23 07:39 | CON ---
DATE OF CONSULTATION: HISTORY OF PRESENT ILLNESS: Logan Gu is a morbidly obese gentleman, who was admitted last night after he went to the ER with abdominal distention and rash. In the ER, he started having a run of SVT. He is then admitted. 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 His primary care physician is in [place]. He has smoked a pack a day for most of his life 6 months ago. No prior history of TB, pneumonia, or bronchial asthma. He does have symptoms of sleep apnea. PAST MEDICAL HISTORY: Cardiac arrhythmias, morbid obesity. PAST SURGICAL HISTORY: None recently, but in the past some lacerations surgery. HOME MEDICATIONS: Include; 1. Pepcid. 2. Colace. 3. Zestril 5. 4. Lasix 40. 5. Tambocor 50 twice a day. 6. Aspirin. 7. Eliquis 5 twice a day. ALLERGIES: . REVIEW OF SYSTEMS: Otherwise, ten-point negative. PHYSICAL EXAMINATION: VITAL SIGNS: Temperature 97, blood pressure , and respiratory rate of 18. CHEST: Decreased breath sounds. No wheezing. CARDIAC: AFib. ABDOMEN: Soft. There is a rash on his abdomen. Erythematous. LABORATORY DATA: Lytes are normal. Renal function normal. White count normal. IMAGING DATA: Chest x-ray is unremarkable. ASSESSMENT: 1. Atrial fibrillation. 2. Rash, unclear. 3. Morbid obesity. 4. Probably sleep apnea. 5. Tobacco abuse. 6. Probably chronic obstructive pulmonary disease. PLAN: I have added Dulera to his present treatment. When he is stable, he probably needs an outpatient sleep study and a full PFT. Continue cardiac care. We will follow. Consultation note, 70 minutes, 50% direct patient care. Job ID: [id number]
[2019-04-23] MEDS: Carvedilol 3.125 MG TAB PO SCH ×2 (08:50→17:01)
[2019-04-23] MEDS: Furosemide 40 MG TAB PO SCH (08:51)
[2019-04-23] MEDS: Flecainide 50 MG TAB PO SCH ×2 (08:51→21:01)
[2019-04-23] MEDS: Aspirin Chewable 81 MG TAB PO SCH (08:53)
[2019-04-23] MEDS: Lisinopril 5 MG TAB PO SCH (08:53)
[2019-04-23] MEDS: Ferrous Sulfate 325 MG TAB PO SCH (08:53)
[2019-04-23] MEDS: Apixaban 5 MG TAB PO SCH ×2 (08:53→21:00)
[2019-04-23] MEDS ORDERED: Albuterol Sulfate 1.25 MG/3 ML NEB NEB PRN (09:03)
--- NOTE | 2019-04-23 09:03 | PDOC.HOSPP ---
- Subjective Encounter Date: 04/23/19 Encounter Time: 09:01 Subjective: The patient is doing well, no palpitations. He is still in sinus rhythm. The patient denies chest pain. Rash on his abdomen is pretty much gone. The patient was supposed to be discharged today, however his had to go to work today so he has no ride until tomorrow. QTC on EKG today down to 473 - Objective Vital Signs & Weight: Vital Signs (12 hours) Temp Pulse BP 04/23/19 08:53 90 165/104 H 04/23/19 07:18 97.7 F 04/23/19 03:24 97.8 F 04/22/19 23:49 98.9 F Weight Weight 318 lb 9.087 oz Most Recent Monitor Data Heart Rate from ECG 83 NIBP 102/58 NIBP BP-Mean 72 Respiration from ECG 27 SpO2 96 I&O: 04/22/19 04/23/19 04/24/19 06:59 06:59 06:59 Intake Total 1480 930 Output Total 770 1075 150 Balance 710 -145 -150 Result Diagrams: 04/23/19 04:26 04/23/19 04:26 Hospitalist ROS - Review of Systems Constitutional: denies: fever, chills Respiratory: denies: cough, dry - Medication Medications: Active Medications Generic Name Dose Route Start Last Admin Trade Name Freq PRN Reason Stop Dose Admin Apixaban 5 mg 04/21/19 09:00 04/23/19 08:53 Eliquis PO 5 mg BID LATRICE Administration Aspirin 81 mg 04/21/19 09:00 04/23/19 08:53 Aspirin Chewable PO 81 mg DAILY LATRICE Administration Carvedilol 3.125 mg 04/21/19 17:00 04/23/19 08:50 Coreg PO 3.125 mg BID-WM LATRICE Administration Docusate Sodium 100 mg 04/21/19 00:18 04/22/19 09:34 Colace PO 100 mg BIDPRN PRN Administration Constipation Ferrous Sulfate 325 mg 04/21/19 08:00 04/23/19 08:53 Feosol PO 325 mg QAM-WM LATRICE Administration Flecainide Acetate 75 mg 04/22/19 21:00 04/23/19 08:51 Tambocor PO 75 mg Q12HR LATRICE Administration Furosemide 40 mg 04/23/19 07:30 04/23/19 08:51 Lasix PO 40 mg DAILY-AC LATRICE Administration Lisinopril 5 mg 04/21/19 09:00 04/23/19 08:53 Zestril PO 5 mg DAILY LATRICE Administration Mometasone Furoate/Formoterol Fumar 2 puff 04/21/19 18:30 04/23/19 07:17 Dulera 200 Mcg/5 Mcg Inhaler INH 2 puff BID-RT LATRICE Administration Triamcinolone Acetonide 0 gm 04/21/19 04:35 04/21/19 21:15 Kenalog 0.1% Cream TOP 1 applic BIDPRN PRN Administration Topical Irritations - Exam General Appearance: NAD, awake alert Eye: PERRL, anicteric sclera ENT: normocephalic atraumatic, no oropharyngeal lesions Neck: supple, symmetric, no JVD, no thyromegaly Heart: RRR, no murmur, no gallops, no rubs Respiratory: CTAB, no wheezes, no rales, no ronchi Respiratory - other findings: on 3L of oxygen, baseline Gastrointestinal: soft, non-tender, non-distended, normal bowel sounds Extremities: no cyanosis, no clubbing, 1+ LE edema Skin: normal turgor, no lesions, no rashes Neurological: cranial nerve grossly intact, normal sensation to touch, no focal deficits, no new deficit Musculoskeletal: normal tone, normal strength Hosp A/P - Plan Chest X ray 04/21: cardiomegaly, no pulmonary edema CTA 04/20: no PE, no pleural or pericardial effusions ECHO: EF 50-55%, normal RV size, This is 53 year old male who presented with acute diastolic heart failure, uncontrolled atrial flutter #Aflutter #Acute diastolic heart failure #Chronic respiratory failure secondary to COPD - was diuresed with 40 mg IV lasix, repeat chest x ray showed no edema. CTA showed no PE - cardizem drip weaned off, started on coreg 3.125 mg bid. Fleicanide dose was increased from 50 mg bid to 100 mg bid, however QT interval yesterday on was 510, so dose was reduced back down to 70 mg bid. Repeat EKG today showing QT of 473 still. Will recheck EKG tomorrow -continue 75 mg fleicanide bid for now, appreciate card recs - per Dr. Almaraz, patient needs outpatient sleep study - PT eval Leukocytosis - improved to 13. UA negative, CTA shows no pneumonia - will monitor Contraction alkalosis - bicarb noted to be 45, discontinued IV lasix - resume outpatient furosemide 40 mg daily today, recheck BMP tomorrow COPD - resume home inhaler Rash on abdomen - urticaria vs fluid build up from heart failure - improved with diuresis -on topical steroid, benadryl prn Morbid obesity - advised patient to avoid eating junk food and sleeping after meals - nutrition consulted Hypernatremia - resolved GERD - continue protonix Iron deficiency anemia - continue ferrous sulfate Disposition: d/c in am DVT prophylaxis: eliquis Code status: full code
[2019-04-23] MEDS ORDERED: Potassium Chloride 20 MEQ TAB PO SCH (09:09)
--- NOTE | 2019-04-23 10:52 | PRG ---
DATE OF SERVICE: 04/23/2019 SUBJECTIVE: He is feeling good and has no acute complaints at this time. OBJECTIVE: VITAL SIGNS: Temperature is 97.7, pulse 83, and blood pressure 102/58. HEENT: Unremarkable. NECK: No adenopathy or JVD. CHEST: S1 and S2. Irregularly irregular. LUNGS: Clear. ABDOMEN: Soft and nontender. EXTREMITIES: No edema. LABORATORY DATA: Sodium 141, potassium 3.9, chloride 89, CO2 of 45, BUN 28, creatinine 0.9, glucose 104. White blood cell count 13, hematocrit 12.7, hematocrit 44.6, and platelet count 172. ASSESSMENT: 1. Atrial flutter. 2. Likely obstructive sleep apnea, possibly obesity hypoventilation syndrome. PLAN: He will need outpatient sleep study at some point in the future. He has our number to contact us in the office to get that set up. Right now, his pulmonary status seems stable and main issue is cardiac concerns. Job ID: [id number]
[2019-04-23 11:45] LABS: Base Excess (BEa) 17.1 mEq/L (-2.0 to +3.0); Calcium, Ionized 1.16 mmol/L (1.12-1.30); Carboxyhemoglobin (COHb) 2.4 gm% (0.0-3.0); Hemoglobin (Hb) 13.9 g/dL (14.0-18.0); O2 Tension (PaO2) 69.2 mmHg (80.0-100.0); Potassium - ABG Lab 3.96 mmol/L (3.70-5.30); pH, Arterial 7.29 (7.35-7.45)
[2019-04-23 11:50] LABS: CO2 Tension 103.2 mmHg (35.0-45.0); Puncture Site RRAD
[2019-04-24 06:08] VITALS: BMI 45.7
[2019-04-24 07:08] VITALS: TEMP 98.2
[2019-04-24] MEDS: Mometasone/Formoterol 120 PUFF INHALER INH SCH (07:42)
[2019-04-24] MEDS: Flecainide 50 MG TAB PO SCH (08:02)
[2019-04-24] MEDS: Apixaban 5 MG TAB PO SCH (08:04)
[2019-04-24] MEDS: Ferrous Sulfate 325 MG TAB PO SCH (08:04)
[2019-04-24] MEDS: Aspirin Chewable 81 MG TAB PO SCH (08:04)
[2019-04-24] MEDS: Carvedilol 3.125 MG TAB PO SCH (08:04)
[2019-04-24] MEDS: Lisinopril 5 MG TAB PO SCH (08:04)
[2019-04-24 08:05] VITALS: BP 146/121
[2019-04-24] MEDS: Furosemide 40 MG TAB PO SCH (08:05)
--- NOTE | 2019-04-24 09:52 | EKG ---
Test Reason : Blood Pressure : / mmHG Vent. Rate : 100 BPM Atrial Rate : 100 BPM P-R Int : 156 ms QRS Dur : 090 ms QT Int : 396 ms P-R-T Axes : 067 077 073 degrees QTc Int : 510 ms Normal sinus rhythm Nonspecific ST abnormality Prolonged QT Abnormal ECG When compared with ECG of 21-APR-2019 22:08, (Unconfirmed) Previous ECG has undetermined rhythm, needs review Confirmed by MARCUS DAVISON, SPraneeth (4) on 04/24/2019 9:52:21 AM Referred By: RENÉE Confirmed By:DR. Oleg VELAZQUEZ MD
--- NOTE | 2019-04-24 09:52 | EKG ---
Test Reason : ROUTINE Blood Pressure : / mmHG Vent. Rate : 094 BPM Atrial Rate : 094 BPM P-R Int : 158 ms QRS Dur : 088 ms QT Int : 376 ms P-R-T Axes : 067 062 081 degrees QTc Int : 470 ms Normal sinus rhythm Possible Left atrial enlargement Nonspecific ST abnormality Abnormal ECG When compared with ECG of 20-APR-2019 16:20, (Unconfirmed) Sinus rhythm has replaced Atrial flutter ST no longer elevated in Inferior leads T wave inversion less evident in Anterior leads Confirmed by MARCUS DAVISON, . SPraneeth (4) on 04/24/2019 9:51:34 AM Referred By: ILENE CHINCHILLA Confirmed By:DR. Oleg VELAZQUEZ MD
--- NOTE | 2019-04-24 09:57 | EKG ---
Test Reason : Blood Pressure : / mmHG Vent. Rate : 086 BPM Atrial Rate : 086 BPM P-R Int : 162 ms QRS Dur : 094 ms QT Int : 400 ms P-R-T Axes : 070 071 071 degrees QTc Int : 478 ms Normal sinus rhythm Nonspecific ST abnormality Abnormal ECG When compared with ECG of 22-APR-2019 07:39, (Unconfirmed) No significant change was found Confirmed by MARCUS DAVISON, . SPraneeth (4) on 04/24/2019 9:57:12 AM Referred By: RICHIE Confirmed By:DR. Oleg VELAZQUEZ MD
--- NOTE | 2019-04-24 10:46 | PDOC.HOSPP ---
- Subjective Encounter Date: 04/24/19 Encounter Time: 10:44 Subjective: Mr. Gu was seen today in follow-up of Atrial fibrillation and flutter. He says he feels fine today. He does not have any complaints. - Objective Vital Signs & Weight: Vital Signs (12 hours) Temp Pulse Resp BP Pulse Ox 04/24/19 08:04 108 H 146/121 H 04/24/19 07:43 108 H 20 90 L 04/24/19 07:42 120 H 20 90 L 04/24/19 07:00 98.2 F 04/24/19 03:03 98.0 F 04/23/19 23:22 98.0 F Weight Weight 318 lb 14.4 oz Most Recent Monitor Data Heart Rate from ECG 109 NIBP 105/66 NIBP BP-Mean 79 Respiration from ECG 32 SpO2 94 I&O: 04/23/19 04/24/19 04/25/19 06:59 06:59 06:59 Intake Total 930 960 Output Total 1075 1275 Balance -145 -315 Result Diagrams: 04/23/19 04:26 04/23/19 04:26 Hospitalist ROS - Medication Medications: Active Medications Generic Name Dose Route Start Last Admin Trade Name Freq PRN Reason Stop Dose Admin Albuterol Sulfate 1.25 mg 04/23/19 09:03 04/24/19 07:43 Albuterol Sulfate NEB 1.25 mg Q4H PRN Administration SOB &/or Wheezing Apixaban 5 mg 04/21/19 09:00 04/24/19 08:04 Eliquis PO 5 mg BID LATRICE Administration Aspirin 81 mg 04/21/19 09:00 04/24/19 08:04 Aspirin Chewable PO 81 mg DAILY LATRICE Administration Carvedilol 3.125 mg 04/21/19 17:00 04/24/19 08:04 Coreg PO 3.125 mg BID-WM LATRICE Administration Docusate Sodium 100 mg 04/21/19 00:18 04/22/19 09:34 Colace PO 100 mg BIDPRN PRN Administration Constipation Ferrous Sulfate 325 mg 04/21/19 08:00 04/24/19 08:04 Feosol PO 325 mg QAM-WM LATRICE Administration Flecainide Acetate 75 mg 04/22/19 21:00 04/24/19 08:02 Tambocor PO 75 mg Q12HR LATRICE Administration Furosemide 40 mg 04/23/19 07:30 04/24/19 08:05 Lasix PO 40 mg DAILY-AC LATRICE Administration Lisinopril 5 mg 04/21/19 09:00 04/24/19 08:04 Zestril PO 5 mg DAILY LATRICE Administration Mometasone Furoate/Formoterol Fumar 2 puff 04/21/19 18:30 04/24/19 07:42 Dulera 200 Mcg/5 Mcg Inhaler INH 2 puff BID-RT LATRICE Administration Sodium Chloride 10 ml 04/23/19 21:00 04/24/19 08:05 Flush - Normal Saline IVF 10 ml Q12HR LATRICE Administration Triamcinolone Acetonide 0 gm 04/21/19 04:35 04/21/19 21:15 Kenalog 0.1% Cream TOP 1 applic BIDPRN PRN Administration Topical Irritations - Exam Eye: PERRL Heart: irregular Respiratory: CTAB, no wheezes, no rales, no ronchi, normal chest expansion Gastrointestinal: soft, non-tender, non-distended, normal bowel sounds, no palpable masses, no hepatomegaly Extremities: no cyanosis, no clubbing, no edema Hosp A/P (1) Atrial fibrillation Code(s): I48.91 - UNSPECIFIED ATRIAL FIBRILLATION Status: Acute (2) Diastolic heart failure Code(s): I50.30 - UNSPECIFIED DIASTOLIC (CONGESTIVE) HEART FAILURE Status: Acute Qualifiers: Heart failure chronicity: acute Qualified Code(s): I50.31 - Acute diastolic (congestive) heart failure (3) Hypertension Code(s): I10 - ESSENTIAL (PRIMARY) HYPERTENSION Status: Chronic Qualifiers: Hypertension type: essential hypertension Qualified Code(s): I10 - Essential (primary) hypertension (4) Obesity, Class III, BMI 40-49.9 (morbid obesity) Code(s): E66.01 - MORBID (SEVERE) OBESITY DUE TO EXCESS CALORIES Status: Chronic - Plan * Atrial fibrillation and Aflutter-his heart rate has improved * Stable for discharge home
--- NOTE | 2019-04-24 17:05 | DIS ---
DATE OF ADMISSION: 04/20/2019 DATE OF DISCHARGE: 04/24/2019 DISCHARGE DISPOSITION: Home. PRIMARY CARE PHYSICIAN: Kay Humphrey MD DISCHARGE DIAGNOSES: 1. Atrial fibrillation with rapid ventricular response. 2. Chronic obstructive pulmonary disease. 3. Morbid obesity. 4. Probable obstructive sleep apnea. 5. Iron deficiency anemia. DISCHARGE MEDICATIONS: Include; 1. Lisinopril 5 mg daily. 2. Lasix 40 mg daily. 3. Flecainide 75 mg twice a day. 4. Iron sulfate 325 mg daily. 5. Carvedilol 3.125 mg twice daily. 6. Aspirin 81 mg daily. 7. Eliquis 5 mg p.o. twice daily. 8. Diamox 250 mg twice a day for three days. 9. Famotidine 10 mg daily. 10. Docusate 100 mg daily. PROCEDURES DONE DURING THE ADMISSION: The patient had a CT angiogram of the chest, which was negative for any central pulmonary embolism. The patient had an echocardiogram in which the ejection fraction was estimated at 50% to 55%. It was a technically difficult study. The left atrium was mildly dilated. CODE STATUS: Full code. ALLERGIES: TO CITALOPRAM AND LOSARTAN. HOSPITAL COURSE: Mr. Gu is a pleasant 53-year-old gentleman, who presented to the emergency room noting abdominal bloating. However, when he was evaluated in the ER, he was found to be in an atrial fibrillation with rapid ventricular response. The full details of which are outlined in the history and physical. He was admitted and initially started on a Cardizem drip. Cardiology was consulted and it was felt that he had a combination of both atrial fibrillation as well as atrial flutter, but the atrial flutter was the predominant rhythm. For this reason, Dr. Osei was consulted and it was recommended that he be started on an antiarrhythmic as well as an anticoagulant and then later to have the patient come back to get possible catheter ablation. The patient was stabilized on flecainide. The dose was reduced due to prolonged QT interval. He was also placed on a low dose of Cardizem as well and his heart rate remained in the upper 90s to low 100s on this. He was completely asymptomatic and was subsequently discharged home to have close outpatient followup with Dr. Osei as well as with Cardiology as instructed and with his primary care physician in 1 to 2 weeks. Job ID: [id number]
--- NOTE | 2019-04-24 18:13 | PDOC.CPN ---
- Subjective Date: 04/24/19 Time: 10:20 Interval history: he is doing well. He is rate controlled afib at this time. Asymptomatic. - Review of Systems General: denies: fever/chills, weight/appetite/sleep changes, night sweats, fatigue Respiratory: denies: cough, congestion, shortness of breath, exercise intolerance Cardiovascular: denies: chest pain, palpitation, edema, paroxysmal nocturnal dyspnea, orthopnea Gastrointestinal: denies: nausea, vomiting, diarrhea, constipation, abd pain, GI bleeding Musculoskeletal: denies: pain, tenderness, stiffness, swelling, arthritis/ arthralgias Neurological: denies: numbness, syncope, seizure, weakness - Objective Allergies/Adverse Reactions: Allergies Allergy/AdvReac Type Severity Reaction Status Date / Time citalopram Allergy Verified 04/20/19 23:08 losartan Allergy Verified 04/20/19 23:08 Vital Signs & Weight: Vital Signs Temp Pulse Resp BP Pulse Ox 04/24/19 12:55 92 L 04/24/19 11:00 98.2 F 04/24/19 08:04 108 H 146/121 H 04/24/19 08:00 94 L 04/24/19 07:43 108 H 20 90 L 04/24/19 07:42 120 H 20 90 L 04/24/19 07:00 98.2 F Weight 318 lb 14.4 oz - Physical Exam General: alert & oriented x3 HEENT: mucus membranes moist Neck: supple neck, midline trachea Cardiac: no murmur, irregularly regular Lungs: normal breath sounds Neuro: grossly intact Abdomen: active bowel sounds Extremities: no edema Skin: clear Musculoskeletal: no pain - Labs Result Diagrams: 04/23/19 04:26 04/23/19 04:26 Troponin/CKMB Troponin I 0.023 ng/mL (< 0.028) 04/20/19 22:44 - Telemetry Supraventricular conduction: atrial fibrillation - Assessment/Plan Assessment/Plan: 1.Typical and atypical atrial flutter 2. Paroxysmal Afib currently rate controlled. PLAN: - May discharge home for outpatient follow up with EP for AFib and aflutter ablation. - Continue coreg and Flecainide at 75 mg BID due to prolongued QT with higher dose and continue full anticoagulation with Eliquis. - Follow up next week for repeat EKG.
--- NOTE | 2019-04-26 13:17 | PQF ---
NUNO HOPKINSRHONDA CANNONAGGIE [id number] [facility]- B02 [id number] CLINICAL DOCUMENTATION IMPROVEMENT CLARIFICATION FORM: ICD-10 Updated PLEASE DO AN ADDENDUM TO THE PROGRESS NOTE WITH ANY DOCUMENTATION UPDATES OR ADDITIONS AND CARRY THROUGH TO DC SUMMARY. THANK YOU. DATE: 04/26/19 ATTN: Dr. Cannon Please exercise your independent, professional judgment in responding to the clarification form. Clinical indicators are provided on the bottom of this form for your review Please check appropriate box(s): [ ] Acute Respiratory Failure: [ ] with Hypoxia [ X ] Acute On Chronic Respiratory Failure: [X ] with Hypoxia [ ] Acute Respiratory Failure due to: (etiology) [ ] Hypoxia [ ] Other diagnosis [ ] Unable to determine In addition, please specify: Present on Admission (POA): [ X ] Yes [ ] No [ ] Unable to determine For continuity of documentation, please document condition throughout progress notes and discharge summary. Thank You. CLINICAL INDICATORS - SIGNS / SYMPTOMS / LABS / RESULTS AND LOCATION IN MR SOB on exertion; starting using home oxygen per 04/20 H&P([facility]) Decreased oxygen saturation (<90% room air or < 95% on oxygen). Cyanosis/Hypoxia -->04/20 VS: 94% ON 2L NC-- 3L NC 95%-98% 04/20 VS: HR 114 RR 34 04/20 ([facility]): "CXR-CHF" RISK FACTORS / RESULTS AND LOCATION IN MR History of home O2 use--> SOB on exertion; starting using home oxygen per 04/20 H&P([facility]) 04/20 H&P([facility]): "Aflutter; acute diastolic heart failure" TREATMENTS / RESULTS AND LOCATION IN MR Oxygen--> 2-3L NC per orders 04/20 Monitoring of oxygenation status --> Telemetry orders 04/20 Diuresis--> Lasix 40mg IV once 04/20 per orders Acute Respiratory Failure: ABG pH < 7.35 or > 7.45; Decreased oxygen saturation (<90% room air or < 95% on oxygen); PCO2 > 50 mm Hg; PO2 < 60 mm Hg; Labored or rapid respirations ARDS: Dx Criteria [Sanders ARDS]: Respiratory symptoms within one week of a known clinical insult (e.g. shock, infection, surgery, trauma) Bilateral opacities in CXR/Chest CT not due to CHF or fluid (This form is maintained as a part of the permanent medical record) 2014 [employer], [employer]. All Rights Reserved Wendy Robison RN, BSN, CCDS [email or web address] [phone] MTDD
--- NOTE | 2019-04-26 16:01 | EKG ---
Test Reason : TIMED Blood Pressure : / mmHG Vent. Rate : 110 BPM Atrial Rate : 312 BPM P-R Int : 000 ms QRS Dur : 094 ms QT Int : 368 ms P-R-T Axes : 000 063 092 degrees QTc Int : 498 ms Atrial flutter with variable A-V block Nonspecific ST and T wave abnormality Abnormal ECG When compared with ECG of 23-APR-2019 07:29, Atrial flutter has replaced Sinus rhythm Confirmed by MARCUS DAVISON, SPraneeth (4) on 04/26/2019 4:01:21 PM Referred By: RICHIE Confirmed By:DR. Oleg VELAZQUEZ MD
== END 2019-04-24 13:45 | disposition home or self-care (01) | DRG 308 ==
LOC: ERS 16:01 → IMCU/EMU 23:04
PROVIDERS: ADMIT Internal Medicine; ATTEND Internal Medicine
DX: I48.92 Unspecified atrial flutter (principal); I50.33 Acute on chronic diastolic (congestive) heart failure; J96.21 Acute and chronic respiratory failure with hypoxia; Z68.42 Body mass index [BMI] 45.0-49.9, adult; E87.0 Hyperosmolality and hypernatremia; E87.3 Alkalosis; J44.9 Chronic obstructive pulmonary disease, unspecified; E66.01 Morbid (severe) obesity due to excess calories; G47.33 Obstructive sleep apnea (adult) (pediatric); K21.9 Gastro-esophageal reflux disease without esophagitis; I25.10 Atherosclerotic heart disease of native coronary artery without angina pectoris; D72.829 Elevated white blood cell count, unspecified; I48.0 Paroxysmal atrial fibrillation; D50.9 Iron deficiency anemia, unspecified; Z87.891 Personal history of nicotine dependence; Z79.01 Long term (current) use of anticoagulants
CPT/HCPCS: 36415; 71045; 71275; 80048; 80053; 81001; 82805; 83735; 85025; 85027; 93005; 93010; 93306; 94640; 96365; 96366; J1940; J3490; Q9967

== ENCOUNTER 2019-05-12 08:55 | Observation (INO) | payer BC ==
[2019-05-12 09:54] LABS: INR-International Normal Ratio 1.1; PTT 31.6 SEC (22.9-36.1); Prothrombin Time 14.2 SEC (12.0-14.7)
[2019-05-12 09:55] LABS: #Basophils 0.1 thou/uL (0.0-0.2); #Eosinphils 0.2 thou/uL (0.0-0.7); #Lymphocytes 1.8 thou/uL (1.20-3.40); #Monocytes 1.1 thou/uL (0.11-0.59); #Neutrophils 6.6 thou/uL (1.40-6.50); %Basophils 0.5 % (0.0-1.0); %Eosinophils 2.6 % (0.0-10.0); %Lymphocytes 18.3 % (21.0-51.0); %Monocytes 10.8 % (0.0-10.0); %Neutrophils 67.8 % (42.0-75.0); Hemoglobin 15.7 g/dL (14.0-18.0); Mean Corpuscular HGB CONC 29.7 g/dL (32.0-36.0); Mean Corpuscular Hemoglobin 28.3 pg (27.0-31.0); Mean Corpuscular Volume 95.2 fL (78.0-98.0); Mean Platelet Volume 8.5 fL (7.4-10.4); Platelet Count 217 thou/uL (130-400); RBC Distribution Width 16.9 % (11.5-14.5); Red Blood Cell (RBC) Count 5.55 mill/uL (4.70-6.10); White Blood Cell (WBC) Count 9.7 thou/uL (4.8-10.8)
[2019-05-12 10:07] LABS: BUN (Urea Nitrogen) 18 mg/dL (8.4-25.7); Calc. Creatinine Clearance 208 mL/min (70-130); Calcium 9.9 mg/dL (7.8-10.44); Estimated GFR-MDRD Greater than 90; Glucose 123 mg/dL (70-105)
[2019-05-12 10:16] LABS: Anion Gap 14 mmol/L (10-20); Carbon Dioxide 33 mmol/L (22-29); Chloride 98 mmol/L (98-107); Potassium 4.1 mmol/L (3.5-5.1); Sodium 141 mmol/L (136-145)
[2019-05-12 10:21] LABS: MDiff Complete? YES; Polychromasia MODERATE = 3-4 cells (100X) (0-2/hpf); Stomatocytes SLIGHT = 2-5 cells (100X) (0-1/hpf)
[2019-05-12] MEDS ORDERED: Heparin 10,000 UNITS/1 ML VIAL ONE ×4 (11:20→15:47)
[2019-05-12] MEDS ORDERED: Heparin (Artline) 1,500 ML ONE (11:20)
[2019-05-12] MEDS ORDERED: Isoproterenol 0.2 MG/1 ML AMP ONE (11:21)
[2019-05-12] MEDS ORDERED: Heparin 25,000 units/D5W 500 ML ONE (11:21)
[2019-05-12] MEDS ORDERED: Ketamine 50 MG/ML (10ML VIAL) ONE (12:13)
[2019-05-12] MEDS ORDERED: Midazolam HCl 2 mg/2 ml Vial ONE (12:13)
[2019-05-12] MEDS ORDERED: Protamine Sulfate 50 MG/5 ML VIAL ONE ×2 (12:52→16:38)
[2019-05-12] MEDS ORDERED: Succinylcholine Chloride 20 MG/ML 10 ml SYRINGE FS ONE (13:00)
[2019-05-12] MEDS ORDERED: PHENYLEPHRINE-NS 100 MCG/ML 10 ML SYRINGE ONE (13:00)
[2019-05-12] MEDS ORDERED: Rocuronium Bromide 10 MG/ML (10ML VIAL) ONE (13:00)
[2019-05-12] MEDS ORDERED: PROPOFOL 200 MG/20 ML VIAL ONE (13:00)
[2019-05-12] MEDS ORDERED: Phenylephrine HCL 10 MG/ML VIAL ONE (13:05)
[2019-05-12] MEDS ORDERED: SUGAMMADEX SODIUM 200 MG/2 ML VIAL ONE (15:50)
[2019-05-12] MEDS ORDERED: HYDROcodone/Acetaminophen 5/325 mg Tablet PO PRN (15:51)
[2019-05-12] MEDS ORDERED: Acetaminophen/Codeine 30-300mg Tablet PO PRN (15:51)
[2019-05-12] MEDS ORDERED: Ketorolac Tromethamine 30 MG/ML VIAL IVP PRN (15:52)
[2019-05-12] MEDS ORDERED: Furosemide 40 MG TAB PO PRN (15:52)
[2019-05-12] MEDS ORDERED: Fentanyl 100 MCG/2 ML VIAL ONE (17:40)
[2019-05-12] MEDS ORDERED: Carvedilol 3.125 MG TAB ONE (18:48)
[2019-05-12] MEDS ORDERED: Lisinopril 2.5 MG TAB ONE (18:49)
[2019-05-12] MEDS ORDERED: Ketorolac Tromethamine 30 MG/ML VIAL ONE (19:00)
[2019-05-12] MEDS: Apixaban 5 MG TAB PO SCH (20:45)
[2019-05-12] MEDS: Sucralfate 1 GM TAB PO SCH ×2 (20:45→20:46)
[2019-05-13 00:07] VITALS: BMI 42.4
--- NOTE | 2019-05-13 01:12 | OP ---
DATE OF PROCEDURE: 05/12/2019 PROCEDURE PERFORMED: Electrophysiology study and radiofrequency ablation. REASON FOR PROCEDURE: Mr. Gu is a 54-year-old man with prior history of paroxysmal atrial fibrillation with recurrent atrial flutter, on flecainide. He is here for EP study and ablation procedure. DESCRIPTION OF PROCEDURE: The patient received propofol and general anesthesia by Anesthesia specialist. Left and right femoral venous areas were prepped, draped , and anesthetized using subcutaneous lidocaine and under ultrasound guidance, both femoral veins were cannulated. On the left side, an 11-Tai[place]ese sheath was used to advance the intracardiac echocardiogram probe to the right atrium, where it was used to monitor the transseptal punctures, catheter positioning, and pericardial space throughout the procedure. Also, from the left side, a Preface sheath was advanced and through this, a Duo-Deca catheter was advanced to the right atrium and CS position. From the right femoral venous access, two 8-Tai[place]ese short sheaths were introduced, through which a ThermoCool SFST catheter was advanced to the right atrium. 3D map of right atrium was obtained including mapping of the His bundle , CS, and cavotricuspid isthmus all performed. Following that, burst atrial pacing was performed, but no atrial flutter was induced. Due to the typical appearance of atrial flutter on prior hospitalization, decision was made to perform a cavotricuspid isthmus ablation, which was performed during proximal CS pacing. We were able to prolong the transisthmus time over 125 milliseconds from baseline of 40 milliseconds. Following that, burst atrial pacing was performed and atrial fibrillation was induced. Transseptal catheterization was performed using two SL1 sheaths from the right femoral venous access with the help of a Moxie transseptal needle. Prior to the transseptal puncture, IV heparin was administered in IV bolus and drip, and ACT was checked to keep ACT over 350 levels throughout the procedure. Following that, through the SL1 sheath, a ThermoCool SFST catheter and a 20-pole Lasso catheter was advanced to the left atrium. 3D map of the left atrium was performed, and we proceeded with standard pulmonary venous isolation procedure. Of note, left common pulmonary vein was seen. Isolation of left common pulmonary vein and both right-sided pulmonary veins were performed. Following that, a roof line and an inferior line were placed between the right and left pulmonary veins to achieve posterior wall isolation. A breakthrough was still noted through the roof line at the site of multiple attempts to isolate the posterior wall. At this point, the catheter was advanced to the left ventricle, and LV pacing was also performed. The following findings were noted; baseline rhythm was sinus rhythm with MN 187, QRS 104, QT 375, AH 91, and HV 50 milliseconds. Sinus node recovery time was 830 milliseconds with corrected sinus node recovery time was 200 milliseconds. Antegrade Wenckebach cycle length was 240 milliseconds. Retrograde Wenckebach cycle length was 300 milliseconds. Central retrograde VA conduction was seen. Atrial extrastimuli testing was with atrial ERP at 600/200 milliseconds. No dual AV kym physiology was seen. The atrial fibrillation terminated during the ablation on the left atrium. Isuprel was administered at this point, and any reconnection was re-ablated. Proximal CS pacing still proved transisthmus block. The repeated pacing maneuvers on Isuprel did not re-induce atrial arrhythmias. The cardiac silhouette did not change throughout the procedure. Intracardiac echocardiogram was used to check pericardial effusion and no change from the baseline small effusion was seen. The catheter was withdrawn from the left side to the right, and protamine was administered after stopping heparin to reverse its effect. The sheaths were pulled in the poultry hatchery laborer , and Vascade closure was performed under ultrasound guidance in all four femoral venous access. The patient tolerated the procedure well and extubated in the poultry hatchery laborer. CONCLUSION: 1. Inducible atrial fibrillation. 2. Successful pulmonary venous isolation procedure performed admitting inducibility. 3. Cavotricuspid isthmus ablation producing trans-isthmus block. 4. Normal sinus and AV kym function. 5. No additional atrial arrhythmias inducible at the end of the case. 6. Left common pulmonary veins are noted. PLAN: Resume anticoagulation and stop flecainide. Monitor for recurrent arrhythmias. Standard post ablation care. Job ID: [id number] [facility]
[2019-05-13] MEDS ORDERED: Potassium Chloride 20 MEQ TAB PO SCH (08:00)
[2019-05-13] MEDS: Apixaban 5 MG TAB PO SCH (08:45)
[2019-05-13] MEDS: Sucralfate 1 GM TAB PO SCH (08:46)
[2019-05-13 08:52] VITALS: BP 147/76; TEMP 97.5
[2019-05-13] MEDS ORDERED: Lisinopril 5 MG TAB PO SCH (09:00)
--- NOTE | 2019-05-14 05:14 | DIS ---
DATE OF ADMISSION: 05/12/2019 DATE OF DISCHARGE: 05/13/2019 DIAGNOSIS: Atrial fibrillation. PROCEDURES PERFORMED: Include, electrophysiology study and radiofrequency ablation for atrial arrhythmia. CONCLUSION: Inducible atrial fibrillation status post successful pulmonary venous isolation procedure as well as cavotricuspid isthmus ablation producing transisthmus block. He was found to have normal sinus and AV kym function. No additional atrial arrhythmia is inducible at the end of the case. Left common pulmonary veins are noted. RECOMMENDATIONS: Post ablations include resuming anticoagulation and stopping flecainide, monitor for recurrent arrhythmias. HISTORY OF PRESENT ILLNESS: Mr. Gu is a 54-year-old gentleman with a history of paroxysmal atrial fibrillation, recurrent atrial flutter that was previously on flecainide for suppression. He was taken to the EP lab for study and ablation by Dr. Osei on 05/12/2019 as we told above and is doing nicely day 1 postablation. He has not had any recurrent atrial arrhythmia by telemetry monitoring, he is in stable condition without any cardiac concerns or complains today and is eager to discharge home. The patient denies heart-racing palpitations, chest pain, pressure, syncope, near syncope, stroke, or stroke-like symptoms, shortness of breath or bleeding at the groin sites. OBJECTIVE: VITAL SIGNS: Before discharge, 97.5 degrees Fahrenheit, pulse 91, blood pressure 114/57, respirations 18, oxygen is 92% on room air. GENERAL: The patient is alert and oriented. Speech is clear. Affect is appropriate. He is in no apparent distress. At the time of exam, he has been ambulating normally throughout the angel. HEART: Irregularly irregular with a crisp S1, S2. PMI is nonpalpable due to habitus. LUNGS: Clear to auscultation bilaterally without wheezes, crackles, or rhonchi. Respirations are even and unlabored with good bilateral excursion. ABDOMEN: Obese, soft, and nontender without palpable masses. Bilateral groin sites are stable without bleeding or signs of hematoma. EXTREMITIES: Warm and dry to touch, well perfused without clubbing, cyanosis, or edema. Gait is stable. NEUROLOGIC: Nonfocal. Telemetry EKG showed sinus rhythm with no recurrent atrial arrhythmia. DISCHARGE MEDICATIONS: Include: 1. 10 mg daily. 2. Zestril 5 mg daily. 3. Furosemide 40 mg daily. 4. Feosol 325 mg daily. 5. Colace 100 mg daily. 6. Coreg 3.125 mg p.o. b.i.d. 7. Aspirin 81 mg daily. 8. Eliquis 5 mg b.i.d. New prescription include, 1. Carafate 1 g p.o. a.c. h.s. for 2 weeks. 2. Protonix 40 mg daily for 1 month. 3. Lasix 40 mg p.o. p.r.n. shortness of breath, swelling of the extremities, or weight gain to be taken with K-Dur 20 mEq. DISCHARGE INSTRUCTIONS: Follow up with [facility] in 6 weeks. Contact our office with any postablation questions or concerns in the interim. Continue to take Eliquis without interruption for postablation anticoagulation. No lifting greater than 10 pounds or soapy baths for 1 weeks, then you are able to resume activities gradually and as tolerated. No driving for 48 hours or until groin sites are nontender, whichever occurs fast. CONDITION AT DISCHARGE: Stable. TOTAL ABLATION TIME: Not documented. Job ID: [id number]
== END 2019-05-13 11:55 | disposition home or self-care (01) ==
LOC: CCL 08:55 → 2SW 20:06
PROVIDERS: ADMIT Internal Medicine Cardiovascular Disease; ATTEND Internal Medicine Cardiovascular Disease
PROC: 4A023FZ Measurement of Cardiac Rhythm, Percutaneous Approach (ICD-10-PCS; principal; 2019-05-13)
PROC: 4A0234Z Measurement of Cardiac Electrical Activity, Percutaneous Approach (ICD-10-PCS; 2019-05-13)
PROC: 02583ZZ Destruction of Conduction Mechanism, Percutaneous Approach (ICD-10-PCS; 2019-05-13)
DX: I48.0 Paroxysmal atrial fibrillation (principal); I48.92 Unspecified atrial flutter; Z79.01 Long term (current) use of anticoagulants; Z79.82 Long term (current) use of aspirin; Z79.899 Other long term (current) drug therapy; Z88.8 Allergy status to other drugs, medicaments and biological substances
CPT/HCPCS: 36415; 76942; 80048; 85025; 85347; 85610; 85730; 93005; 93010; 93462; 93613; 93622; 93623; 93655; 93662; C1731; C1732; C1759; C1769; G0378; J1644; J1885; J2250; J2370; J2704; J2720; J3010